=== PATIENT | female | born 1950 | race Caucasian/White ===

== ENCOUNTER 2018-07-19 08:52 | Inpatient (IN) | payer MEDICARE, BC, SELFPAY ==
[2018-07-19] VITALS (16 sets, daily range): BP systolic 132–185; BP diastolic 67–107; PULSE 69–89; RESP 14–18; TEMP 37–37.2; O2SAT 95–99; BMI 22.8; BMI 20.5; BMI 20.6
--- NOTE | 2018-07-19 09:13 | CT_ITS ---
STUDY: CT BRAIN WITHOUT CONTRAST REASON FOR EXAM: Female, 67 years old. Severe headache. RADIATION DOSAGE (If Supplied By Facility): CTDIvol = ( 44.99 ) mGy, DLP = ( 762.36 ) mGycm TECHNIQUE: Transaxial CT imaging of the brain was performed without administration of intravenous contrast material. Individualized dose optimization techniques were used for this CT. COMPARISON: No relevant priors. FINDINGS: Normal soft tissue structures. Normal calvarium. Normal size ventricles and extra-axial spaces for the patient's age. Normal white matter tracts of the cerebral hemispheres. Normal basal ganglia and thalami. Normal brainstem. Normal cerebellum. There is no intracranial hemorrhage. There are no findings of an acute ischemic infarction. Normal visualized paranasal sinuses. CT/Brain/Head without Contrast IMPRESSION: Normal unenhanced CT scan of the brain. Electronically Signed: Cornel Clemons MD at 10:10 EDT , Service support ,
--- NOTE | 2018-07-19 09:17 | ED.VIS.HA ---
History of Present Illness Chief Complaint: Headache Informant: Patient Onset: - - Onset Friday Context: Sudden Timing: Continuous Quality: Throbbing Location: Initially vertex during questioning. During examination global Current Severity: Moderate Maximum Severity: Severe Worsened by: Only prone position Relieved by: Nothing Associated Symptoms: Fever - Subjective, Nausea, Vomiting - X1 this morning, Photophobia. Negative for: Sore Throat, Sinus Pressure, Numbness, Tingling, Preceding Aura, Visual Changes, Blurred Vision, Visual Loss Injury: - - There is no history of trauma Narrative: Patient is an elderly woman with history of hypothyroidism who presents with headache that started Friday. The headache at times gets worse. She describes it as throbbing. Initially she stated the headache was bilateral vertex. During the physical portion of the H&P she reports global. She states the pain is worse when she is prone. She does not report change with being supine, sitting or bending forward. She does report pain from the base of her neck down her entire spine and feels every step. She complains of subjective fever and chills, shaking. She denies ocular, visual auditory sensory denies trouble speech or swallowing. She states she does not that she will do her eyes but her eyes are sensitive to light. She denies paresthesia, anesthesia or motor weakness. She denies problems with balance. She reports taking Tylenol this morning and 3 hours later vomited. She denies rash. Prior similar symptoms: No Recent Illness/Hospitalization: No Past Medical History - Allergies and Home Meds Allergies/Adverse Reactions: Allergies No Known Allergies Allergy (Verified 07/19/18 08:56) Primary Care Physician: Tami Soto DO [Primary Care Provider] - Prior records reviewed: Yes - History of hypothyroidism Past Medical History: - - History of hypothyroidism Surgical History: noncontributory Lives: Spouse/ Significant Other Smoking Status: Former smoker Alcohol: Rare Drugs: None Review of Systems General: Reports: Chills, Fever - Subjective, Subjective. Denies: Malaise, Sweats, Weight loss, - Eyes: Denies: Visual changes - left, Visual changes - right, Visual changes - bilaterally, Blurred vision - left, Blurred vision - right, Blurred Vision - bilaterally, Diplopia, -, - ENT: Denies: Bilateral ear pain, Rhinorrhea, Sore throat Cardiovascular: Denies: Chest pain Gastrointestinal: Reports: Nausea, Vomiting. Denies: Abdominal pain, Diarrhea Genitourinary: Denies: Dysuria, Hematuria, Frequency, -, - Skin: Denies: Rash, Abscess, Abrasions, Wounds, -, - Neurological: Reports: Headache. Denies: Weakness, Parasthesia, Numbness, -, - Hematologic: Denies: Easy bruising, Easy bleeding Allergy: Denies: Uticaria Physical Exam Vital Signs/Narrative: Vital Signs Temp Pulse Resp BP Pulse Ox 07/19/18 08:53 98.6 F 78 18 167/107 H 98 Inital Vital Signs reviewed: Yes General: Well nourished, Well developed, - - She appears ill but not toxic. Head: NC, AT. Negative for: Trauma, Tenderness, Temporary Artery Tenderness, Vesicular Rash, Sinus Tenderness Eyes: Perrl, EOMI, - - Funduscopic exam reveals normal cup-to-disc ratio. There is no papilledema. Venous pulsations noted bilaterally.. Negative for: Pale conjunctiva, Scleral icterus ENT: Moist mucous membranes, No rhinorrhea. Negative for: Nasal congestion, Sinus tenderness Neck: Supple, No Lymphadenopathy, No JVD, Nontender, No Meningismus - Negative Kernig's and Brudzinski sign. Cardiovascular: Regular rate, Regular rhythm, No murmurs, Normal S1, Normal S2 Respiratory: No distress, CTA bilaterally, Chest nontender Abdomen: Soft, Nontender, Nondistended, Normal bowel sounds Back: Nontender, Normal Inspection. Negative for: CVA tenderness, Spinal tenderness - There is no point percussion tenderness Extremities: Nontender, No edema Skin: Normal color, No rash. Negative for: Cyanosis, Jaundice Neuro: Alert, Oriented x3, Cranial nerves II-XII grossly intact, Normal Strength, Normal Sensation, Normal DTR, Normal Gait Psychological: Normal affect Diagnostic/Tx/Re-eval Impressions Brain CT 07/19/18 09:13 IMPRESSION: Normal unenhanced CT scan of the brain. Electronically Signed: Cornel Clemons MD at 10:10 EDT , Service support , 07/19/18 09:13 Brain/Head without Contrast [CT] Stat Laboratory Results 07/19/18 07/19/18 09:31 09:31 WBC 6.6 RBC 5.00 Hgb 14.4 Hct 42.8 MCV 85.6 MCH 28.8 MCHC 33.6 RDW 13.0 RDW Differential 40.4 Plt Count 195 MPV 10.2 Immature Gran % (Auto) 0.200 Neut % (Auto) 82.3 H Lymph % (Auto) 11.4 L [place] % (Auto) 5.1 Eos % (Auto) 0.5 Baso % (Auto) 0.5 Absolute Neuts (auto) 5.5 Absolute Lymphs (auto) 0.76 L Total Counted Not Reportable Sodium 140 Potassium 3.6 Chloride 108 H Carbon Dioxide 28.0 Anion Gap 4 L BUN 15 Creatinine 0.74 Estim Creat Clear Calc 59.95 Est GFR (MDRD) Af Amer 101 Est GFR (MDRD) Non-Af 84 BUN/Creatinine Ratio 20.3 H Glucose 110 H Calcium 8.2 L CTA of the head neck reveals no aneurysm. [facility] was contacted. They were informed of the results. The interventional neuroradiologist was paged and he will be made aware of her results. Will speak with patient and after speaking with interventional neuroradiologist. - Medical Decision Making With complaint of severe headache change in possession in location initially being vertex one needs to consider sphenoid sinusitis. This could represent atypical migraine. This also may represent subarachnoid hemorrhage. Because of reported subjective fever with shaking chills this may represent viral illness i.e. meningitis. To evaluate differential CT of the head was obtained, blood work, IV was established and she was medicated with Zofran and IV Toradol, 15 mg Patient was reassessed at 1045. She still does not appear well. She still complains of headache. She was informed of her blood test results and CAT scan results. She was informed there is a 15% chance of subarachnoid hemorrhage that would be missed on CAT scan. She also was told this may represent meningitis or possibly other conditions that would not reveal abnormality on CAT scan. She was given opportunity ask questions. All of her questions were asked to satisfaction. Her was present during conversation. We will proceed with lumbar puncture. Spinal fluid is clear/transparent however there is a yellow tinge, xanthochromia, which would indicate subarachnoid hemorrhage. Patient and were informed she will need further workup. They requested [facility]. Transfer line was contacted. Spoke with the intake nurse. She will contact neurosurgery. She was informed of patient's history and only medical problem is hypothyroidism. The neuro interventional radiologist Dr. ARECHIGA states that there is nothing for him to do since there is no aneurysm on the CTA of the head and neck. Dr. Tang the neuro housecalls nurse states that patient does not require transfer. She should be seen by neurology and manage her pain. Procedures Procedure(s): Patient was informed to evaluate the cause of her headache and rule out subarachnoid hemorrhage, meningitis or other cause of lumbar puncture is indicated. After explaining risk benefits, my experience, my known complications she was given opportunity ask questions. Her was as well. Their questions were answered to their satisfaction. She signed consent forms and she does have the capacity to consent for lumbar puncture. Patient was placed right decubitus position. The L3-4 interspace was cannulated first stick second pass. Fluid is clear/transparent however there is xanthochromia. Fluid was sent for appropriate analysis. Opening pressure 16.5 cm. Patient tolerated procedure well. There was no bleeding complications or any complication. Band-Aid was placed over puncture site. Patient and were informed of the discoloration of the fluid and need for further testing. Critical care time (excluding procedures): Consultation with neuro housecalls nurse and neuro interventional radiologist - 32 ED Disposition - Plan for ED Patient: Disposition: Acute Care Hospital [facility] Diagnosis: Subarachnoid hemorrhage Referrals: Tami Soto DO [Primary Care Provider] -
--- NOTE | 2018-07-19 09:21 | ED.DCSUM_ITS ---
History of Present Illness Chief Complaint: Headache Informant: Patient Onset: - - Onset Friday Context: Sudden Timing: Continuous Quality: Throbbing Location: Initially vertex during questioning. During examination global Current Severity: Moderate Maximum Severity: Severe Worsened by: Only prone position Relieved by: Nothing Associated Symptoms: Fever - Subjective, Nausea, Vomiting - X1 this morning, Photophobia. Negative for: Sore Throat, Sinus Pressure, Numbness, Tingling, Preceding Aura, Visual Changes, Blurred Vision, Visual Loss Injury: - - There is no history of trauma Narrative: Patient is an elderly woman with history of hypothyroidism who presents with headache that started Friday. The headache at times gets worse. She describes it as throbbing. Initially she stated the headache was bilateral vertex. During the physical portion of the H&P she reports global. She states the pain is worse when she is prone. She does not report change with being supine, sitting or bending forward. She does report pain from the base of her neck down her entire spine and feels every step. She complains of subjective fever and chills, shaking. She denies ocular, visual auditory sensory denies trouble s peech or swallowing. She states she does not that she will do her eyes but her eyes are sensitive to light. She denies paresthesia, anesthesia or motor weakness. She denies problems with balance. She reports taking Tylenol this morning and 3 hours later vomited. She denies rash. Prior similar symptoms: No Recent Illness/Hospitalization: No Past Medical History - Allergies and Home Meds Allergies/Adverse Reactions: Allergies No Known Allergies Allergy (Verified 07/19/18 08:56) Primary Care Physician: Tami Soto DO [Primary Care Provider] - Prior records reviewed: Yes - History of hypothyroidism Past Medical History: - - History of hypothyroidism Surgical History: noncontributory Lives: Spouse/ Significant Other Smoking Status: Former smoker Alcohol: Rare Drugs: None Review of Systems General: Reports: Chills, Fever - Subjective, Subjective. Denies: Malaise, Sweats, Weight loss, - Eyes: Denies: Visual changes - left, Visual changes - right, Visual changes - bilaterally, Blurred vision - left, Blurred vision - right, Blurred Vision - bilaterally, Diplopia, -, - ENT: Denies: Bilateral ear pain, Rhinorrhea, Sore throat Cardiovascular: Denies: Chest pain Gastrointestinal: Reports: Nausea, Vomiting. Denies: Abdominal pain, Diarrhea Genitourinary: Denies: Dysuria, Hematuria, Frequency, -, - Skin: Denies: Rash, Abscess, Abrasions, Wounds, -, - Neurological: Reports: Headache. Denies: Weakness, Parasthesia, Numbness, -, - Hematologic: Denies: Easy bruising, Easy bleeding Allergy: Denies: Uticaria Physical Exam Vital Signs/Narrative: Vital Signs Temp Pulse Resp BP Pulse Ox 07/19/18 08:53 98.6 F 78 18 167/107 H 98 Inital Vital Signs reviewed: Yes General: Well nourished, Well developed, - - She appears ill but not toxic. Head: NC, AT. Negative for: Trauma, Tenderness, Temporary Artery Tenderness, Vesicular Rash, Sinus Tenderness Eyes: Perrl, EOMI, - - Funduscopic exam reveals normal cup-to-disc ratio. There is no papilledema. Venous pulsations noted bilaterally.. Negative for: Pale conjunctiva, Scleral icterus ENT: Moist mucous membranes, No rhinorrhea. Negative for: Nasal congestion, Sinus tenderness Neck: Supple, No Lymphadenopathy, No JVD, Nontender, No Meningismus - Negative Kernig's and Brudzinski sign. Cardiovascular: Regular rate, Regular rhythm, No murmurs, Normal S1, Normal S2 Respiratory: No distress, CTA bilaterally, Chest nontender Abdomen: Soft, Nontender, Nondistended, Normal bowel sounds Back: Nontender, Normal Inspection. Negative for: CVA tenderness, Spinal tenderness - There is no point percussion tenderness Extremities: Nontender, No edema Skin: Normal color, No rash. Negative for: Cyanosis, Jaundice Neuro: Alert, Oriented x3, Cranial nerves II-XII grossly intact, Normal Strength, Normal Sensation, Normal DTR, Normal Gait Psychological: Normal affect Diagnostic/Tx/Re-eval Impressions Brain CT 07/19/18 09:13 IMPRESSION: Normal unenhanced CT scan of the brain. Electronically Signed: Cornel Clemons MD at 10:10 EDT , Service support , 07/19/18 09:13 Brain/Head without Contrast [CT] Stat Laboratory Results 07/19/18 07/19/18 09:31 09:31 WBC 6.6 RBC 5.00 Hgb 14.4 Hct 42.8 MCV 85.6 MCH 28.8 MCHC 33.6 RDW 13.0 RDW Differential 40.4 Plt Count 195 MPV 10.2 Immature Gran % (Auto) 0.200 Neut % (Auto) 82.3 H Lymph % (Auto) 11.4 L [place] % (Auto) 5.1 Eos % (Auto) 0.5 Baso % (Auto) 0.5 Absolute Neuts (auto) 5.5 Absolute Lymphs (auto) 0.76 L Total Counted Not Reportable Sodium 140 Potassium 3.6 Chloride 108 H Carbon Dioxide 28.0 Anion Gap 4 L BUN 15 Creatinine 0.74 Estim Creat Clear Calc 59.95 Est GFR (MDRD) Af Amer 101 Est GFR (MDRD) Non-Af 84 BUN/Creatinine Ratio 20.3 H Glucose 110 H Calcium 8.2 L CTA of the head neck reveals no aneurysm. [facility] was contacted. They were informed of the results. The interventional neuroradiologist was paged and he will be made aware of her results. Will speak with patient and after speaking with interventional neuroradiologist. - Medical Decision Making With complaint of severe headache change in possession in location initially being vertex one needs to consider sphenoid sinusitis. This could represent atypical migraine. This also may represent subarachnoid hemorrhage. Because of reported subjective fever with shaking chills this may represent viral illness i.e. meningitis. To evaluate differential CT of the head was obtained, blood work, IV was established and she was medicated with Zofran and IV Toradol, 15 mg Patient was reassessed at 1045. She still does not appear well. She still complains of headache. She was informed of her blood test results and CAT scan results. She was informed there is a 15% chance of subarachnoid hemorrhage that would be missed on CAT scan. She also was told this may represent meningitis or possibly other conditions that would not reveal abnormality on CAT scan. She was given opportunity ask questions. All of her questions were asked to satisfaction. Her was present during conversation. We will proceed with lumbar puncture. Spinal fluid is clear/transparent however there is a yellow tinge, xanthochromia, which would indicate subarachnoid hemorrhage. Patient and were informed she will need further workup. They requested [facility]. Transfer line was contacted. Spoke with the intake nurse. She will contact neurosurgery. She was informed of patient's history and only medical problem is hypothyroidism. The neuro interventional radiologist Dr. ARECHIGA states that there is nothing for him to do since there is no aneurysm on the CTA of the head and neck. Dr. Tang the neuro mine superintendent states that patient does not require transfer. She should be seen by neurology and manage her pain. Procedures Procedure(s): Patient was informed to evaluate the cause of her headache and rule out subarachnoid hemorrhage, meningitis or other cause of lumbar puncture is indicated. After explaining risk benefits, my experience, my known complications she was given opportunity ask questions. Her was as well. Their questions were answered to their satisfaction. She signed consent forms and she does have the capacity to consent for lumbar puncture. Patient was placed right decubitus position. The L3-4 interspace was cannulated first stick second pass. Fluid is clear/transparent however there is xanthochromia. Fluid was sent for appropriate analysis. Opening pressure 16.5 cm. Patient tolerated procedure well. There was no bleeding complications or any complication. Band-Aid was placed over puncture site. Patient and were informed of the discoloration of the fluid and need for further testing. Critical care time (excluding procedures): Consultation with neuro mine superintendent and neuro interventional radiologist - 32 ED Disposition - Plan for ED Patient: Disposition: Acute Care Hospital [facility] Diagnosis: Subarachnoid hemorrhage Referrals: Tami Soto DO [Primary Care Provider] -
[2018-07-19] MEDS: Ondansetron 4 MG/2 ML Vial IV ×2 (09:35→19:31)
[2018-07-19] MEDS: Ketorolac 15 MG/ML Vial IV (09:35)
--- NOTE | 2018-07-19 09:37 | ED.RN ---
patient does states she does not have a hx of migraines nor frequent headaches
[2018-07-19 09:43] LABS: Absolute Lymphocyte Count 0.76 X10^3/ul (0.83-4.51); Absolute Neutrophil Count 5.5 X10^3/uL (2.0-7.7); Basophil# 0.03 X10^3/uL; Basophil% 0.5 % (0-1); Eosinophil# 0.03 X10^3/uL; Eosinophils% 0.5 % (0-5); Hematocrit 42.8 % (37-47); Hemoglobin 14.4 g/dl (12.0-15.0); Lymphocyte # 0.76 X10^3/ul (4.0); Lymphocyte % 11.4 % (19-41); Mean Corp Hgb Conc 33.6 g/gl (32-36); Mean Corpuscular Hgb 28.8 pg (27.0-32.0); Mean Corpuscular Volume 85.6 fL (81-99); Mean Platelet Vol. 10.2 fl (6.2-12.0); Monocyte# 0.34 X10^3/uL; Monocyte% 5.1 % (0-10); Neutrophil # 5.47 X10^3/uL (2.7-7.7); Neutrophil % 82.3 % (47-70); Platelet Count 195 K/mm3 (150-450); RBC Distribution Width SD 40.4 fl (35.1-43.9); White Blood Count 6.6 K/mm3 (4.4-11.0)
[2018-07-19 09:47] LABS: POSITIVE COUNT NO; POSITIVE DIFFERENTIAL NO; POSITIVE MORPHOLOGY NO
[2018-07-19 09:55] LABS: Anion Gap 4 (5-15); BUN 15 mg/dL (7-18); BUN/Creat Ratio 20.3 RATIO (10-20); Calcium,Total 8.2 mg/dL (8.5-10.1); Chloride 108 mmol/L (98-107); Creatinine, Serum 0.74 mg/dL (0.55-1.02); EST Glomerular Filtration Rate 84 mL/min (>60); Est Glom Filt Rate - Afr Amer 101 mL/min (>60); Estimated Creatinine Clearance 59.95 ml/min; Glucose 110 mg/dL (74-106); Potassium 3.6 mmol/L (3.5-5.1); Sodium Level 140 mmol/L (136-145)
[2018-07-19 11:53] LABS: Body Fluid Mononuclear WBC # 0.333 10^3/uL; Body Fluid Mononuclear WBC % 99.7 %; Body Fluid Polynuclear WBC # 0.001 10^3/uL; Body Fluid Polynuclear WBC % 0.3 %; Total Cell Count CSF 0.334 10^3/uL (0.000-0.000); White Count, CSF 0.334 10^3/uL (0.000-5.000)
[2018-07-19 12:03] LABS: Appearance CSF (character) CLEAR (Clear); Auto B Fluid Analyzer BKGD Ct COUNTS W/IN LIMITS (W/IN LIMITS); CSF Color SL XANTH (Colorless); RBC Count, Spinal Fluid 2 /mm-3 (None seen); Tested Tube # 4
[2018-07-19 12:04] LABS: Body Fluid QC Type(s) BF1Q
[2018-07-19 12:12] LABS: International Normalized Ratio 1.1; Prothrombin Time (Protime)PT. 14.1 SECONDS (11.7-14.9)
[2018-07-19 12:13] LABS: Partial Thromboplast Time 32.9 Seconds (24.1-36.2)
[2018-07-19 12:20] LABS: Glucose Spinal Fluid 57 mg/dL (40-75)
--- NOTE | 2018-07-19 12:42 | CT_ITS ---
STUDY: CTA OF THE BRAIN REASON FOR EXAM: Female, 67 years old. Severe headache RADIATION DOSAGE (If Supplied By Facility): CTDIvol = ( 18.68 ) mGy, DLP = ( 643.11 ) mGycm TECHNIQUE: CT angiography was performed with a multi-detector CT scanner. Data acquisition was obtained from the skull base through the vertex following intravenous administration of 100CC IV Isovue 370. MIP images were reconstructed from the axial data set. Post-processing of the angiographic images was performed, with multiplanar reformation and 3D reconstruction. Individualized dose optimization techniques were used for this CT. COMPARISON: None. FINDINGS: Normal bilateral petrous carotid arteries. Normal right cavernous carotid artery with a normal supraclinoid bifurcation. Normal left cavernous carotid artery with a normal supraclinoid bifurcation. Normal right A1 segments of the anterior cerebral artery. Normal left A1 segments of the anterior cerebral artery. Normal intact anterior communicating artery (ACOM). Normal bilateral A2 segments of the anterior cerebral arteries. Normal right M1 and M2 segments of the middle cerebral arteries, with a normal M1 bifurcation. Normal left M1 and M2 segments of the middle cerebral arteries, with a normal M1 bifurcation. 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 Normal left posterior communicating artery (PCOM). 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 Normal basilar artery with a normal basilar bifurcation. The visualized bilateral superior cerebellar (SCA) arteries are normal. Normal bilateral P1, P2 and visualized P3 segments of the posterior cerebral arteries. There is no demonstrated aneurysm of the [place]. There is no demonstrated abnormality of the visualized brain. IMPRESSION: 1. Normal [place] without a demonstrated aneurysm or hemodynamically significant stenosis. Electronically Signed: Luis Foster MD at 14:28 EDT , Service support , STUDY: CTA NECK WITH CONTRAST REASON FOR EXAM: Female, 67 years old. Severe headache RADIATION DOSAGE (If Supplied By Facility): CTDIvol = ( 18.68 ) mGy, DLP = ( 643.11 ) mGycm TECHNIQUE: CT angiography with multi-detector data acquisition was performed from the aortic arch to the skull base following intravenous administration of 100CC IV Isovue 370. MIP images were reconstructed from the axial data set. Post-processing of the angiographic images was performed, with multiplanar reformation and 3D reconstruction. Individualized dose optimization techniques were used for this CT. COMPARISON: None. FINDINGS: AORTIC ARCH: Normal visualized aortic arch. Normal origins of the brachiocephalic, left common carotid, and left subclavian arteries. RIGHT CAROTID ARTERIES: Normal right common carotid artery (CCA). Normal right common carotid bulb. Normal origin of the right internal carotid (ICA) artery without a hemodynamically significant stenosis. Normal visualized cervical portion of the right internal carotid artery. Normal origin of the right external carotid artery (ECA). LEFT CAROTID ARTERIES: Normal left common carotid artery (CCA). Normal left common carotid bulb. Normal origin of the left internal carotid (ICA) artery without a hemodynamically significant stenosis. Normal visualized cervical portion of the left internal carotid artery. Normal origin of the left external carotid artery (ECA). VERTEBRAL ARTERIES: Normal bilateral vertebral arteries. CT/CTA Neck W/WO Contrast IMPRESSION: Normal bilateral cervical carotid and vertebral arteries. Electronically Signed: Luis Foster MD at 14:29 EDT , Service support ,
--- NOTE | 2018-07-19 12:42 | CT_ITS ---
STUDY: CTA OF THE BRAIN REASON FOR EXAM: Female, 67 years old. Severe headache RADIATION DOSAGE (If Supplied By Facility): CTDIvol = ( 18.68 ) mGy, DLP = ( 643.11 ) mGycm TECHNIQUE: CT angiography was performed with a multi-detector CT scanner. Data acquisition was obtained from the skull base through the vertex following intravenous administration of 100CC IV Isovue 370. MIP images were reconstructed from the axial data set. Post-processing of the angiographic images was performed, with multiplanar reformation and 3D reconstruction. Individualized dose optimization techniques were used for this CT. COMPARISON: None. FINDINGS: Normal bilateral petrous carotid arteries. Normal right cavernous carotid artery with a normal supraclinoid bifurcation. Normal left cavernous carotid artery with a normal supraclinoid bifurcation. Normal right A1 segments of the anterior cerebral artery. Normal left A1 segments of the anterior cerebral artery. Normal intact anterior communicating artery (ACOM). Normal bilateral A2 segments of the anterior cerebral arteries. Normal right M1 and M2 segments of the middle cerebral arteries, with a normal M1 bifurcation. Normal left M1 and M2 segments of the middle cerebral arteries, with a normal M1 bifurcation. 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 Normal left posterior communicating artery (PCOM). 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 Normal basilar artery with a normal basilar bifurcation. The visualized bilateral superior cerebellar (SCA) arteries are normal. Normal bilateral P1, P2 and visualized P3 segments of the posterior cerebral arteries. There is no demonstrated aneurysm of the tunica-biloxi of Bhak[place]. There is no demonstrated abnormality of the visualized brain. IMPRESSION: 1. Normal tunica-biloxi of [place] without a demonstrated aneurysm or hemodynamically significant stenosis. Electronically Signed: Luis Foster MD at 14:28 EDT , Service support , STUDY: CTA NECK WITH CONTRAST REASON FOR EXAM: Female, 67 years old. Severe headache RADIATION DOSAGE (If Supplied By Facility): CTDIvol = ( 18.68 ) mGy, DLP = ( 643.11 ) mGycm TECHNIQUE: CT angiography with multi-detector data acquisition was performed from the aortic arch to the skull base following intravenous administration of 100CC IV Isovue 370. MIP images were reconstructed from the axial data set. Post-processing of the angiographic images was performed, with multiplanar reformation and 3D reconstruction. Individualized dose optimization techniques were used for this CT. COMPARISON: None. FINDINGS: AORTIC ARCH: Normal visualized aortic arch. Normal origins of the brachiocephalic, left common carotid, and left subclavian arteries. RIGHT CAROTID ARTERIES: Normal right common carotid artery (CCA). Normal right common carotid bulb. Normal origin of the right internal carotid (ICA) artery without a hemodynamically significant stenosis. Normal visualized cervical portion of the right internal carotid artery. Normal origin of the right external carotid artery (ECA). LEFT CAROTID ARTERIES: Normal left common carotid artery (CCA). Normal left common carotid bulb. Normal origin of the left internal carotid (ICA) artery without a hemodynamically significant stenosis. Normal visualized cervical portion of the left internal carotid artery. Normal origin of the left external carotid artery (ECA). VERTEBRAL ARTERIES: Normal bilateral vertebral arteries. CT/CTA Head W/WO Contrast IMPRESSION: Normal bilateral cervical carotid and vertebral arteries. Electronically Signed: Luis Foster MD at 14:29 EDT , Service support ,
--- NOTE | 2018-07-19 12:58 | NURSING ---
FAXED FACESHEET TO [facility]
--- NOTE | 2018-07-19 14:57 | NURSING ---
HOSPITALIST PAGED DR MAYES FOR DR MEIER
[2018-07-19] MEDS: HYDROmorphone 0.5 MG/0.5 ML SYRINGE IV (15:19)
--- NOTE | 2018-07-19 15:35 | NURSING ---
PCU HEADACHE WITH XANTHOCHROMIA KOTSOINIS
--- NOTE | 2018-07-19 16:01 | HP.PCM_ITS ---
Problem List (1) Hypothyroidism Status: Acute (2) Arthritis Status: Chronic (3) Subarachnoid hemorrhage Status: Chronic History of Present Illness Date of Admission: 07/19/18 Chief Complaint: Headache The patient is a 67 year old F with PMH of hypothyroidism presenting with acute onset headache. She states that initially she had a headache on Friday and has steadily worsened over the last 2 days, and this morning it was the worst it had been. She stated that the pain also went down to the base of her neck and down her spine. She denies any visual disturbance, or extremity weakness or change in sensation. In the ER because of the concern for hemorrhage, CT brain was obtained which was negative and a lumbar puncture was performed that showed xanthochromia. There was no evidence of significant bleeding on the lumbar puncture, though she did have 2 red blood cells in the last to be drawn. Therefore a CTA of the head and neck were obtained to evaluate for any aneurysms, which were negative. This was conveyed by the ER physician to to external neuro specialist who felt that she would be stable to stay here at this institution. Past Medical History Past Medical History (Chronic Problems): Chronic Problems Subarachnoid hemorrhage (Chronic) Arthritis (Chronic) Allergies No Known Allergies Allergy (Verified 07/19/18 08:56) Home Medications: Ambulatory Orders Medication Instructions Recorded Levothyroxine Sodium [Synthroid] 137 mcg PO DAILY 07/19/18 Meloxicam [Mobic] 7.5 mg PO PRN PRN 07/19/18 Surgical History: noncontributory Lives: Spouse/ Significant Other Smoking Status: Former smoker Tobacco Use: Cigarettes Alcohol: Rare Drugs: None - *Family History Maternal History Items: Heart Disease Paternal History Items: No pertinent history Review of Systems Constitutional: Denies: Chills, Fever, Weight Change Eyes: Denies: Blurred vision, Double vision, Vision Change HEENT: Reports: Head Aches. Denies: Sinus Congestion, Sinus Drainage Cardiovascular: Denies: Chest Pain, Palpitations Respiratory: Denies: Cough, Shortness of breath at rest, Sputum production Gastrointestinal: Denies: Abdominal Pain, Nausea, Vomiting Genitourinary: Denies: Dysuria Musculoskeletal: Denies: Joint Pain, Joint Tenderness Skin: Denies: Rash, Wounds Neurological: Denies: Numbness, Tingling, Focal weakness Psychiatric: Denies: Anxiety, Depression Hematologic/ Lymphatic: Denies: Easy Bruising, Easy Bleeding VTE Information - Inpt Only VTE Present on Admission: No Patient Problems: Active and Suspected Problems Hypothyroidism (Acute) - Physical Exam General: Alert, Oriented x3, Cooperative, No apparent distress HEENT: Atraumatic, PERRLA, EOMI, Normocephalic Oral: Moist Mucosa Neck: Supple, No JVD, Trachea Midline Lungs: Clear to auscultation, Normal air movement, No rhonchi, No wheeze, No rales Cardiovascular: Regular rate, Regular Rhythm, Normal S1, Normal S2, No murmurs Abdomen: Soft, Non Tender, Non-Distended, No Hepato-splenomegaly Extremities: No edema, Capillary Refill Less than 3 Seconds Skin: No rashes, No breakdown Musculoskeletal: No Tenderness to Palpation of Joints or Extremities Neurological: Cranial nerves II-XII grossly intact, Neuro grossly intact, Motor Exam 5/5 strength throughout, Sensory exam intact to light touch and pain Psych/Mental Status: Normal Affect, Appropriate Vital Signs Temp Pulse Resp BP Pulse Ox 98.6 F 78 16 177/89 H 98 07/19/18 08:53 07/19/18 15:00 07/19/18 15:00 07/19/18 15:00 07/19/18 15:00 Oxygen Delivery Method Room Air Weight: 125 lb Body Mass Index (BMI) 22.8 Microbiology Past 72 Hours 07/19/18 11:30 Gram Stain - Final Csf, Spinal Fluid Laboratory Tests Past 24 Hrs 07/19/18 07/19/18 07/19/18 09:31 09:31 09:31 WBC 6.6 RBC 5.00 Hgb 14.4 Hct 42.8 MCV 85.6 MCH 28.8 MCHC 33.6 RDW 13.0 RDW Differential 40.4 Plt Count 195 MPV 10.2 Immature Gran % (Auto) 0.200 Neut % (Auto) 82.3 H Lymph % (Auto) 11.4 L [place] % (Auto) 5.1 Eos % (Auto) 0.5 Baso % (Auto) 0.5 Absolute Neuts (auto) 5.5 Absolute Lymphs (auto) 0.76 L Total Counted Not Reportable PT 14.1 INR 1.1 APTT 32.9 Sodium 140 Potassium 3.6 Chloride 108 H Carbon Dioxide 28.0 Anion Gap 4 L BUN 15 Creatinine 0.74 Estim Creat Clear Calc 59.95 Est GFR (MDRD) Af Amer 101 Est GFR (MDRD) Non-Af 84 BUN/Creatinine Ratio 20.3 H Glucose 110 H Calcium 8.2 L Fld Polynuclear WBCs # Fld Polynuclear WBCs % Fluid Mononuclear WBCs Fld Mononuclear WBCs % CSF Appearance CSF Color CSF WBC CSF RBC CSF Cell Count Tube # CSF Total Cell Counted CSF Comment CSF Glucose CSF Total Protein 07/19/18 07/19/18 07/19/18 11:30 11:30 11:30 WBC RBC Hgb Hct MCV MCH MCHC RDW RDW Differential Plt Count MPV Immature Gran % (Auto) Neut % (Auto) Lymph % (Auto) [place] % (Auto) Eos % (Auto) Baso % (Auto) Absolute Neuts (auto) Absolute Lymphs (auto) Total Counted PT INR APTT Sodium Potassium Chloride Carbon Dioxide Anion Gap BUN Creatinine Estim Creat Clear Calc Est GFR (MDRD) Af Amer Est GFR (MDRD) Non-Af BUN/Creatinine Ratio Glucose Calcium Fld Polynuclear WBCs # 0.001 Fld Polynuclear WBCs % 0.3 Fluid Mononuclear WBCs 0.333 Fld Mononuclear WBCs % 99.7 CSF Appearance CLEAR CSF Color SL XANTH H CSF WBC 0.334 CSF RBC 2 H CSF Cell Count Tube # 4 CSF Total Cell Counted 0.334 H CSF Comment May follow CSF Glucose 57 CSF Total Protein 109.0 H Assessment/Plan All Active Problems Hypothyroidism (Acute) 1. Acute intracranial hemorrhage of unknown origin -This is solely based on the history of headache and xanthochromia on an LP. -She is also currently significantly hypertensive to 170, when she states that she is normally low therefore we will start her on hydralazine and labetalol as needed -We will initially try Tylenol to see if that relieves her headaches, if not can proceed with morphine -Consult to neurology for evaluation and plan of care after discharge -Hold her Mobic for her arthritis -We will provide with IV fluids to hopefully increase her CSF which may help with her headache 2. Hypothyroidism -Stable -Continue with her home Synthroid 3. Arthritis -Mostly in her left hand, and is unable to squeeze very well because of it -Takes Mobic at home which will be discontinued given the fact that it is an NSAID and she has intracranial hemorrhage DVT: SCDs Code Visit Inpatient E&M: 42090 Init Hosp L3
[2018-07-19] MEDS: hydrALAZINE 20 MG/ML Vial 10 MG IV (18:00)
[2018-07-19] MEDS: 0.9% NaCl Peripheral Flush Adult/Peds IV ×3 (18:03→21:40)
[2018-07-19] MEDS: 0.9% Normal Saline 1,000 ML 125 ML IV ×2 (18:04→19:31)
[2018-07-19] MEDS: Morphine 2 MG/ML Syringe IV ×2 (18:41→21:40)
[2018-07-20] VITALS (37 sets, daily range): BP systolic 123–174; BP diastolic 53–116; PULSE 71–95; RESP 12–20; TEMP 36.8–37.4; O2SAT 92–97
[2018-07-20] MEDS: Acetaminophen 325 MG Tablet 650 MG PO ×2 (02:44→20:22)
[2018-07-20] MEDS: 0.9% Normal Saline 1,000 ML 125 ML IV ×3 (02:45→18:36)
[2018-07-20] MEDS: Ondansetron 4 MG/2 ML Vial IV ×2 (03:39→11:39)
[2018-07-20] MEDS: Morphine 2 MG/ML Syringe IV ×2 (03:50→08:26)
[2018-07-20 05:56] LABS: Anion Gap 5 (5-15); BUN 15 mg/dL (7-18); BUN/Creat Ratio 21.9 RATIO (10-20); Calcium,Total 8.2 mg/dL (8.5-10.1); Chloride 111 mmol/L (98-107); Creatinine, Serum 0.68 mg/dL (0.55-1.02); EST Glomerular Filtration Rate 91 mL/min (>60); Est Glom Filt Rate - Afr Amer 111 mL/min (>60); Estimated Creatinine Clearance 65.23 ml/min; Glucose 119 mg/dL (74-106); Potassium 3.8 mmol/L (3.5-5.1); Sodium Level 141 mmol/L (136-145)
[2018-07-20 05:57] LABS: Absolute Lymphocyte Count 0.81 X10^3/ul (0.83-4.51); Absolute Neutrophil Count 4.5 X10^3/uL (2.0-7.7); Basophil# 0.02 X10^3/uL; Basophil% 0.3 % (0-1); Hematocrit 37.1 % (37-47); Hemoglobin 12.3 g/dl (12.0-15.0); Lymphocyte # 0.81 X10^3/ul (4.0); Lymphocyte % 13.7 % (19-41); Mean Corp Hgb Conc 33.2 g/gl (32-36); Mean Corpuscular Hgb 28.9 pg (27.0-32.0); Mean Corpuscular Volume 87.1 fL (81-99); Mean Platelet Vol. 10.5 fl (6.2-12.0); Monocyte# 0.64 X10^3/uL; Monocyte% 10.8 % (0-10); Neutrophil # 4.45 X10^3/uL (2.7-7.7); Platelet Count 195 K/mm3 (150-450); RBC Distribution Width CV 13.4 % (11.6-14.6); Red Blood Count 4.26 M/mm3 (4.2-5.4); White Blood Count 5.9 K/mm3 (4.4-11.0)
[2018-07-20 06:14] LABS: POSITIVE COUNT NO; POSITIVE DIFFERENTIAL NO; POSITIVE MORPHOLOGY NO
[2018-07-20] MEDS: hydrALAZINE 20 MG/ML Vial 10 MG IV ×2 (08:26→12:35)
[2018-07-20] MEDS: 0.9% NaCl Peripheral Flush Adult/Peds IV ×4 (08:26→12:36)
[2018-07-20] MEDS: proCHLORPERazine 10 MG/2 ML Vial IV (09:27)
--- NOTE | 2018-07-20 10:03 | PCM.PN.HOSP ---
Patient Problems: Active and Suspected Problems Hypothyroidism (Acute) Subjective: Feels better than when she came in though she does still have a headache. Vitals/I&O's: Vital Signs Temp Pulse Resp BP Pulse Ox 98.3 F 73 16 159/80 H 96 07/20/18 08:13 07/20/18 08:26 07/20/18 08:13 07/20/18 09:25 07/20/18 08:13 Oxygen Delivery Method Room Air Weight: 112 lb 6.972 oz Body Mass Index (BMI) 20.5 Intake and Output for Last 24 Hours 07/18/18 07/19/18 07/20/18 23:59 23:59 23:59 Intake Total 120 / 120 1414 / 1414 Output Total 175 / 175 Balance -55 / -55 1414 / 1414 General: Alert, Oriented x3, Cooperative, No apparent distress HEENT: Atraumatic, PERRLA, EOMI, Normocephalic Oral: Moist Mucosa Neck: Supple, No JVD, Trachea Midline Lungs: Clear to auscultation, Normal air movement, No rhonchi, No wheeze, No rales Cardiovascular: Regular rate, Regular Rhythm, Normal S1, Normal S2, No murmurs Abdomen: Soft, Non Tender, Non-Distended, No Hepato-splenomegaly Extremities: No edema, Capillary Refill Less than 3 Seconds Skin: No rashes, No breakdown Musculoskeletal: No Tenderness to Palpation of Joints or Extremities Neurological: Cranial nerves II-XII grossly intact, Neuro grossly intact, Motor Exam 5/5 strength throughout, Sensory exam intact to light touch and pain Psych/Mental Status: Normal Affect, Appropriate Microbiology Past 72 Hours 07/19/18 11:30 Csf, Spinal Fluid Gram Stain - Final Laboratory Results 07/19/18 09:31: PT 14.1, INR 1.1, APTT 32.9 07/19/18 11:30: CSF Glucose 57 07/19/18 11:30: CSF Total Protein 109.0 H 07/19/18 11:30: Fld Polynuclear WBCs # 0.001, Fld Polynuclear WBCs % 0.3, Fluid Mononuclear WBCs 0.333, Fld Mononuclear WBCs % 99.7, CSF Appearance CLEAR, CSF Color SL XANTH H, CSF WBC 0.334, CSF RBC 2 H, CSF Cell Count Tube # 4, CSF Total Cell Counted 0.334 H, CSF Comment May follow 07/20/18 04:55: WBC 5.9, RBC 4.26, Hgb 12.3, Hct 37.1, MCV 87.1, MCH 28.9, MCHC 33.2, RDW 13.4, RDW Differential 43.0, Plt Count 195, MPV 10.5, Immature Gran % (Auto) 0.200, Neut % (Auto) 75.0 H, Lymph % (Auto) 13.7 L, [place] % (Auto) 10.8 H, Eos % (Auto) 0.0, Baso % (Auto) 0.3, Absolute Neuts (auto) 4.5, Absolute Lymphs (auto) 0.81 L, Total Counted Not Reportable 07/20/18 04:55: Sodium 141, Potassium 3.8, Chloride 111 H, Carbon Dioxide 25.0, Anion Gap 5, BUN 15, Creatinine 0.68, Estim Creat Clear Calc 65.23, Est GFR (MDRD) Af Amer 111, Est GFR (MDRD) Non-Af 91, BUN/Creatinine Ratio 21.9 H, Glucose 119 H, Calcium 8.2 L Current Medications Acetaminophen (Tylenol) 650 mg PO Q4H PRN PRN PRN Reason: MILD-MOD PAIN (1-5) Last Admin: 07/20/18 02:44 Dose: 650 mg Hydralazine HCl (Apresoline Iv) 10 mg IV Q4H PRN PRN PRN Reason: SBP GREATER THAN 150 Last Admin: 07/20/18 08:26 Dose: 10 mg Sodium Chloride () 1,000 mls @ 125 mls/hr IV .Q8H [facility] Last Admin: 07/20/18 02:45 Dose: 125 mls/hr Labetalol HCl (Trandate) 20 mg IV Q4H PRN PRN PRN Reason: SBP GREATER THAN 150 Last Admin: 07/20/18 03:06 Dose: 20 mg Levothyroxine Sodium (Synthroid) 137 mcg PO DAILY@0600 [facility] Last Admin: 07/20/18 06:11 Dose: Not Given Magnesium Hydroxide (Milk Of Magnesia) 30 ml PO DAILY PRN PRN Reason: Constipation Morphine Sulfate () 2 mg IV Q3H PRN PRN PRN Reason: SEVERE PAIN (6-1010) Last Admin: 07/20/18 08:26 Dose: 2 mg Ondansetron HCl (Zofran) 4 mg IV Q8H PRN PRN PRN Reason: NAUSEA Last Admin: 07/20/18 03:39 Dose: 4 mg Prochlorperazine Edisylate (Compazine Iv) 10 mg IV Q6H PRN PRN PRN Reason: NAUSEA Last Admin: 07/20/18 09:27 Dose: 10 mg Sodium Chloride () 5 - 15 ml IV UD PRN PRN Reason: SALINE FLUSH Last Admin: 07/20/18 09:27 Dose: 10 ml Medical Necessity - Tobacco Use Smoking Status: Former smoker Tobacco Use: Cigarettes Assessment/Plan All Active Problems Hypothyroidism (Acute) 1. Acute intracranial hemorrhage of unknown origin -This is solely based on the history of headache and xanthochromia on an LP, which was very slight 10 and she did have RBCs in the last 2 therefore could also be secondary to a traumatic tap -She is also currently significantly hypertensive to 170, when she states that she is normally low therefore we will start her on hydralazine and labetalol as needed -Just feel better when her blood pressure is more controlled so will provide these medications for SBP is greater than 150 -Eating some improvement with morphine -Consult to neurology for evaluation and plan of care after discharge -Hold her Mobic for her arthritis -We will provide with IV fluids to hopefully increase her CSF which may help with her headache 2. Hypothyroidism -Stable -Continue with her home Synthroid 3. Arthritis -Mostly in her left hand, and is unable to squeeze very well because of it -Takes Mobic at home which will be discontinued given the fact that it is an NSAID and she has intracranial hemorrhage DVT: SCDs Code Visit Inpatient E&M: 25896 Subs Hosp L2
--- NOTE | 2018-07-20 11:26 | PCM.CONS.GEN ---
Reason for Consult Date of Consultation: 07/20/18 Reason for Consultation: Headache History of Present Illness: The patient is a 67 year old F with history as below. Reports acute onset of headache associate with pain involving head and spine with onset on friday after a workout and after couging. usually no headaches. initially in ed had ct/cta/lp which was nonrevealing except xanthochromia on lp. results discussed neurologist and neurointerventionalist at another hospital by ED docs and felt to be appropriate to keep in romy. headache now 5/10. at worst the headache Per admit note: The patient is a 67 year old F with PMH of hypothyroidism presenting with acute onset headache. She states that initially she had a headache on Friday and has steadily worsened over the last 2 days, and this morning it was the worst it had been. She stated that the pain also went down to the base of her neck and down her spine. She denies any visual disturbance, or extremity weakness or change in sensation. In the ER because of the concern for hemorrhage, CT brain was obtained which was negative and a lumbar puncture was performed that showed xanthochromia. There was no evidence of significant bleeding on the lumbar puncture, though she did have 2 red blood cells in the last to be drawn. Therefore a CTA of the head and neck were obtained to evaluate for any aneurysms, which were negative. This was conveyed by the ER physician to to external neuro specialist who felt that she would be stable to stay here at this institution. Past Medical History Past Medical History (Chronic Problems): Chronic Problems Subarachnoid hemorrhage (Chronic) Arthritis (Chronic) Allergies No Known Allergies Allergy (Verified 07/19/18 08:56) Home Medications: Ambulatory Orders Medication Instructions Recorded Levothyroxine Sodium [Synthroid] 137 mcg PO DAILY 07/19/18 Meloxicam [Mobic] 7.5 mg PO PRN PRN 07/19/18 Surgical History: noncontributory Lives: Spouse/ Significant Other Smoking Status: Former smoker Tobacco Use: Cigarettes Alcohol: Rare Drugs: None - *Family History Maternal History Items: Heart Disease Paternal History Items: No pertinent history Review of Systems Constitutional: Denies: Chills, Fever, Weight Change HEENT: Denies: Head Aches, Sinus Congestion, Sinus Drainage Cardiovascular: Denies: Chest Pain, Palpitations Respiratory: Denies: Cough, Shortness of breath at rest, Sputum production Gastrointestinal: Denies: Abdominal Pain, Nausea, Vomiting Genitourinary: Denies: Dysuria Musculoskeletal: Denies: Joint Pain, Joint Tenderness Skin: Denies: Rash, Wounds Neurological: Denies: Numbness, Tingling, Focal weakness Psychiatric: Denies: Anxiety, Depression, Homicidal Ideations, Suicidal Ideations Hematologic/ Lymphatic: Denies: Easy Bruising, Easy Bleeding Patient Problems: Active and Suspected Problems Hypothyroidism (Acute) - Physical Exam General: Alert, Oriented x3, Cooperative HEENT: Atraumatic, PERRLA, EOMI, Normocephalic Neck: Supple, No JVD, Negative Carotid Bruits Lungs: Clear to auscultation, Normal air movement Cardiovascular: Regular rate, No murmurs Abdomen: Bowel Sounds Present, Soft, Non Tender Extremities: No edema, Capillary Refill Less than 3 Seconds Skin: No rashes, No breakdown Musculoskeletal: No Tenderness to Palpation of Joints or Extremities Neurological: Cranial nerves II-XII grossly intact, - - neck supple, negative kernigs and brudzinkis Psych/Mental Status: Normal Affect, Appropriate Vital Signs Temp Pulse Resp BP Pulse Ox 36.8 C 71 16 145/80 H 96 07/20/18 10:10 07/20/18 10:10 07/20/18 10:10 07/20/18 10:10 07/20/18 10:10 Oxygen Delivery Method Room Air Weight: 51 kg Body Mass Index (BMI) 20.5 Intake and Output for Last 24 Hours 07/18/18 07/19/18 07/20/18 23:59 23:59 23:59 Intake Total 120 / 120 1414 / 1414 Output Total 175 / 175 Balance -55 / -55 1414 / 1414 Microbiology Past 72 Hours 07/19/18 11:30 Gram Stain - Final Csf, Spinal Fluid CSF Culture - Preliminary No growth in 24 hours. Final to follow. Laboratory Tests Past 24 Hrs 07/19/18 07/19/18 07/19/18 09:31 11:30 11:30 WBC RBC Hgb Hct MCV MCH MCHC RDW RDW Differential Plt Count MPV Immature Gran % (Auto) Neut % (Auto) Lymph % (Auto) [place] % (Auto) Eos % (Auto) Baso % (Auto) Absolute Neuts (auto) Absolute Lymphs (auto) Total Counted PT 14.1 INR 1.1 APTT 32.9 Sodium Potassium Chloride Carbon Dioxide Anion Gap BUN Creatinine Estim Creat Clear Calc Est GFR (MDRD) Af Amer Est GFR (MDRD) Non-Af BUN/Creatinine Ratio Glucose Calcium Fld Polynuclear WBCs # Fld Polynuclear WBCs % Fluid Mononuclear WBCs Fld Mononuclear WBCs % CSF Appearance CSF Color CSF WBC CSF RBC CSF Cell Count Tube # CSF Total Cell Counted CSF Comment CSF Glucose 57 CSF Total Protein 109.0 H 07/19/18 07/20/18 07/20/18 11:30 04:55 04:55 WBC 5.9 RBC 4.26 Hgb 12.3 Hct 37.1 MCV 87.1 MCH 28.9 MCHC 33.2 RDW 13.4 RDW Differential 43.0 Plt Count 195 MPV 10.5 Immature Gran % (Auto) 0.200 Neut % (Auto) 75.0 H Lymph % (Auto) 13.7 L [place] % (Auto) 10.8 H Eos % (Auto) 0.0 Baso % (Auto) 0.3 Absolute Neuts (auto) 4.5 Absolute Lymphs (auto) 0.81 L Total Counted Not Reportable PT INR APTT Sodium 141 Potassium 3.8 Chloride 111 H Carbon Dioxide 25.0 Anion Gap 5 BUN 15 Creatinine 0.68 Estim Creat Clear Calc 65.23 Est GFR (MDRD) Af Amer 111 Est GFR (MDRD) Non-Af 91 BUN/Creatinine Ratio 21.9 H Glucose 119 H Calcium 8.2 L Fld Polynuclear WBCs # 0.001 Fld Polynuclear WBCs % 0.3 Fluid Mononuclear WBCs 0.333 Fld Mononuclear WBCs % 99.7 CSF Appearance CLEAR CSF Color SL XANTH H CSF WBC 0.334 CSF RBC 2 H CSF Cell Count Tube # 4 CSF Total Cell Counted 0.334 H CSF Comment May follow CSF Glucose CSF Total Protein CT of the head reviewed and CTA of the head and neck reviewed. I do not see any evidence of bleeding on the CAT scan and no vascular abnormalities on the CTA. Assessment/Plan All Active Problems Hypothyroidism (Acute) sudden severe headache, questionable xanthochromia on lp, only two red cells. neg cta and ct brain. rare migraine hx. cant r/o occult aneurysm or small bleed, unable to explain xanthochromia treat pain and nausea recommend transfer to tertiary care center 60min
--- NOTE | 2018-07-20 11:28 | CASEMGMT ---
RN CM Assessment Presentation: Acute intracranial hemorrhage of unknown origin, headache. Neuro eval: Xanthochromia. Cont treatment @ [facility] Intro role of CM and purpose of RN CM assessment to patient in room. Lights were low and pt has headache but is able to participate in assessment. . Demographics, PCP and Pharmacy verified. PCP: Dr. Soto Specialists: Dr. Baron Preferred [facility]acy: [facility]. Entered in chart Insurance: [facility] A/B Prescription Benefit: yes LNOK: Living Arrangements: states she lives independently, does Cross-fit exercise. No assistance needed. Transportation: drives DME: none HHC: none Patient DC goals: Home DC PLAN: anticipate home on discharge. If transfer to tertiary care is initiated, pt has MCR and can transfer to any MCR accepting facility ([facility], [facility], [facility], [facility], [place]) Bijal GORMANN RN ACM
[2018-07-20 13:33] LABS: Pathologist Review Reviewed
--- NOTE | 2018-07-20 14:00 | DCINST_ITS ---
- Discharge Diagnoses Current Active Problems: Current Active and Chronic Problems Subarachnoid hemorrhage (Chronic) Hypothyroidism (Acute) Arthritis (Chronic) You will use the following diet at home:: Regular Your food should be the consistency of: Regular Discharge Activity: Return to Normal Activity Call your doctor if you observe: Fever of 101 or Higher, Shortness of breath, Dizziness, Fainting spells, Chest pain, Increased palpitations (irregular heartbeat) Allergies/Adverse Reactions: Allergies No Known Allergies Allergy (Verified 07/19/18 08:56) Medications to take at Discharge Levothyroxine Sodium [Synthroid] 137 mcg PO DAILY 07/19/18 Primary Care Physician: Tami Soto DO [Primary Care Provider] - Please follow up with your Primary Care Physician in: 3-5 days Test Results: Test results from this visit will be discussed in further detail at your follow- up appointment, if applicable.
--- NOTE | 2018-07-20 14:09 | PCM.DC.SUM ---
Discharge Date and Diagnosis - Problem List Patient Problems: Active and Suspected Problems Hypothyroidism (Acute) Date of Admission: 07/19/18 Date of Discharge: 07/20/18 - Primary Discharge Diagnosis Active and Suspected Problems Hypothyroidism (Acute) - Secondary Discharge Diagnosis Chronic Problems Subarachnoid hemorrhage (Chronic) Arthritis (Chronic) Hospital Course and Treatment Imaging Results: CTA Brain: FINDINGS: Normal bilateral petrous carotid arteries. Normal right cavernous carotid artery with a normal supraclinoid bifurcation. Normal left cavernous carotid artery with a normal supraclinoid bifurcation. Normal right A1 segments of the anterior cerebral artery. Normal left A1 segments of the anterior cerebral artery. Normal intact anterior communicating artery (ACOM). Normal bilateral A2 segments of the anterior cerebral arteries. Normal right M1 and M2 segments of the middle cerebral arteries, with a normal M1 bifurcation. Normal left M1 and M2 segments of the middle cerebral arteries, with a normal M1 bifurcation. 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 Normal left posterior communicating artery (PCOM). 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 Normal basilar artery with a normal basilar bifurcation. The visualized bilateral superior cerebellar (SCA) arteries are normal. Normal bilateral P1, P2 and visualized P3 segments of the posterior cerebral arteries. There is no demonstrated aneurysm of the rampart of Bhakta. There is no demonstrated abnormality of the visualized brain. IMPRESSION: 1. Normal rampart of Bhakta without a demonstrated aneurysm or hemodynamically significant stenosis. CTA Neck:FINDINGS: AORTIC ARCH: Normal visualized aortic arch. Normal origins of the brachiocephalic, left common carotid, and left subclavian arteries. RIGHT CAROTID ARTERIES: Normal right common carotid artery (CCA). Normal right common carotid bulb. Normal origin of the right internal carotid (ICA) artery without a hemodynamically significant stenosis. Normal visualized cervical portion of the right internal carotid artery. Normal origin of the right external carotid artery (ECA). LEFT CAROTID ARTERIES: Normal left common carotid artery (CCA). Normal left common carotid bulb. Normal origin of the left internal carotid (ICA) artery without a hemodynamically significant stenosis. Normal visualized cervical portion of the left internal carotid artery. Normal origin of the left external carotid artery (ECA). VERTEBRAL ARTERIES: Normal bilateral vertebral arteries. CT/CTA Head W/WO Contrast IMPRESSION: Normal bilateral cervical carotid and vertebral arteries. Consults: Neurology Operations: None Procedures: - - Lumbar puncture Summary of Care Provided: Per HPI: The patient is a 67 year old F with PMH of hypothyroidism presenting with acute onset headache. She states that initially she had a headache on Friday and has steadily worsened over the last 2 days, and this morning it was the worst it had been. She stated that the pain also went down to the base of her neck and down her spine. She denies any visual disturbance, or extremity weakness or change in sensation. In the ER because of the concern for hemorrhage, CT brain was obtained which was negative and a lumbar puncture was performed that showed xanthochromia. There was no evidence of significant bleeding on the lumbar puncture, though she did have 2 red blood cells in the last to be drawn. Therefore a CTA of the head and neck were obtained to evaluate for any aneurysms, which were negative. This was conveyed by the ER physician to to external neuro specialist who felt that she would be stable to stay here at this institution. Hospital Course: 1. Intracranial [id number]-old female presents with headache that is started on Friday. She states that she was exercising at the time and the headache has continued to get worse over the last couple of days. She when she presented on Friday she stated that her headache was the worst she is ever had and in the ER she had a CTA of the head and neck which was negative for any aneurysm or bleed, however she had a lumbar puncture with xanthochromia and 2 RBCs in the fourth tube, as well as a normal glucose and normal white blood cell count but elevated protein. She does not have any fevers or chills though she stated that her headache was also going down her spine, though she does not have any nuchal rigidity. Initially the ER physician had called 2 separate neurosurgical services, I believe in [place] and they stated that she could be managed here, however she is continued to have significant blood pressure elevations with SBP is in the 170s-180s despite multiple treatments with labetalol and hydralazine. She is also continue to have emesis though she has not eaten anything. I discussed the case with [facility] neurology and they accepted her for transfer to their neuro ICU. They recommended starting a nicardipine drip and nimodipine, she will be transferred to the ICU pending transfer to [facility] on a nicardipine drip however our hospital does not carry nimodipine and therefore will continue the labetalol and hydralazine until she is transferred and her blood pressure is under 140 systolic. 2. Hypothyroidism-stable no change to her home meds, will continue with her Synthroid at her current dose Patient Problems: Active and Suspected Problems Hypothyroidism (Acute) Objective: General: Alert, Oriented x3, Cooperative, No apparent distress HEENT: Atraumatic, PERRLA, EOMI, Normocephalic Oral: Moist Mucosa Neck: Supple, No JVD, Trachea Midline, no nuchal rigidity Lungs: Clear to auscultation, Normal air movement, No rhonchi, No wheeze, No rales Cardiovascular: Regular rate, Regular Rhythm, Normal S1, Normal S2, No murmurs Abdomen: Soft, Non Tender, Non-Distended, No Hepato-splenomegaly Extremities: No edema, Capillary Refill Less than 3 Seconds Skin: No rashes, No breakdown Musculoskeletal: No Tenderness to Palpation of Joints or Extremities Neurological: Cranial nerves II-XII grossly intact, Neuro grossly intact, Motor Exam 5/5 strength throughout, Sensory exam intact to light touch and pain Psych/Mental Status: Normal Affect, Appropriate - Physical Exam Vital Signs Temp Pulse Resp BP Pulse Ox 98.2 F 81 16 168/90 H 95 07/20/18 13:01 07/20/18 13:01 07/20/18 13:01 07/20/18 13:07/20/18 13:01 Oxygen Delivery Method Room Air Weight: 112 lb 6.972 oz Body Mass Index (BMI) 20.5 Intake and Output for Last 24 Hours 07/18/18 07/19/18 07/20/18 23:59 23:59 23:59 Intake Total 120 / 120 2190 Output Total 175 / 175 Balance -55 / -55 2190 Microbiology Past 72 Hours 07/19/18 11:30 Gram Stain - Final Csf, Spinal Fluid CSF Culture - Preliminary No growth in 24 hours. Final to follow. Laboratory Tests Past 24 Hrs 07/19/18 07/20/18 07/20/18 11:30 04:55 04:55 WBC 5.9 RBC 4.26 Hgb 12.3 Hct 37.1 MCV 87.1 MCH 28.9 MCHC 33.2 RDW 13.4 RDW Differential 43.0 Plt Count 195 MPV 10.5 Immature Gran % (Auto) 0.200 Neut % (Auto) 75.0 H Lymph % (Auto) 13.7 L [place] % (Auto) 10.8 H Eos % (Auto) 0.0 Baso % (Auto) 0.3 Absolute Neuts (auto) 4.5 Absolute Lymphs (auto) 0.81 L Total Counted Not Reportable Sodium 141 Potassium 3.8 Chloride 111 H Carbon Dioxide 25.0 Anion Gap 5 BUN 15 Creatinine 0.68 Estim Creat Clear Calc 65.23 Est GFR (MDRD) Af Amer 111 Est GFR (MDRD) Non-Af 91 BUN/Creatinine Ratio 21.9 H Glucose 119 H Calcium 8.2 L CSF Comment Reviewed Discharge Activity: Return to Normal Activity Call your doctor if you observe: Fever of 101 or Higher, Shortness of breath, Dizziness, Fainting spells, Chest pain, Increased palpitations (irregular heartbeat) Home Medications: Medications to take at Discharge Levothyroxine Sodium [Synthroid] 137 mcg PO DAILY 07/19/18 Primary Care Physician: Tami Soto DO [Primary Care Provider] - Please follow up with your Primary Care Physician in: 3-5 days Disposition: Acute care Hospital Minutes spent on discharge:: 35 Patient Condition:: Stable Medical Necessity - Tobacco Use Smoking Status: Former smoker Tobacco Use: Cigarettes Meaningful Use Info Meaningful Use Diagnoses (Choose all that apply): None applicable Code Visit Inpatient E&M: 39710 Disch Hosp
--- NOTE | 2018-07-20 14:14 | DS.PCM_ITS ---
Discharge Date and Diagnosis - Problem List Patient Problems: Active and Suspected Problems Hypothyroidism (Acute) Date of Admission: 07/19/18 Date of Discharge: 07/20/18 - Primary Discharge Diagnosis Active and Suspected Problems Hypothyroidism (Acute) - Secondary Discharge Diagnosis Chronic Problems Subarachnoid hemorrhage (Chronic) Arthritis (Chronic) Hospital Course and Treatment Imaging Results: CTA Brain: FINDINGS: Normal bilateral petrous carotid arteries. Normal right cavernous carotid artery with a normal supraclinoid bifurcation. Normal left cavernous carotid artery with a normal supraclinoid bifurcation. Normal right A1 segments of the anterior cerebral artery. Normal left A1 segments of the anterior cerebral artery. Normal intact anterior communicating artery (ACOM). Normal bilateral A2 segments of the anterior cerebral arteries. Normal right M1 and M2 segments of the middle cerebral arteries, with a normal M1 bifurcation. Normal left M1 and M2 segments of the middle cerebral arteries, with a normal M1 bifurcation. 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 Normal left posterior communicating artery (PCOM). 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 Normal basilar artery with a normal basilar bifurcation. The visualized bilateral superior cerebellar (SCA) arteries are normal. Normal bilateral P1, P2 and visualized P3 segments of the posterior cerebral arteries. There is no demonstrated aneurysm of the pilot station of [place]ak[place]. There is no demonstrated abnormality of the visualized brain. IMPRESSION: 1. Normal pilot station of [place] without a demonstrated aneurysm or hemodynamically significant stenosis. CTA Neck:FINDINGS: AORTIC ARCH: Normal visualized aortic arch. Normal origins of the brachiocephalic, left common carotid, and left subclavian arteries. RIGHT CAROTID ARTERIES: Normal right common carotid artery (CCA). Normal right common carotid bulb. Normal origin of the right internal carotid (ICA) artery without a hemodynamically significant stenosis. Normal visualized cervical portion of the right internal carotid artery. Normal origin of the right external carotid artery (ECA). LEFT CAROTID ARTERIES: Normal left common carotid artery (CCA). Normal left common carotid bulb. Normal origin of the left internal carotid (ICA) artery without a hemodynamically significant stenosis. Normal visualized cervical portion of the left internal carotid artery. Normal origin of the left external carotid artery (ECA). VERTEBRAL ARTERIES: Normal bilateral vertebral arteries. CT/CTA Head W/WO Contrast IMPRESSION: Normal bilateral cervical carotid and vertebral arteries. Consults: Neurology Operations: None Procedures: - - Lumbar puncture Summary of Care Provided: Per HPI: The patient is a 67 year old F with PMH of hypothyroidism presenting with acute onset headache. She states that initially she had a headache on Friday and has steadily worsened over the last 2 days, and this morning it was the worst it had been. She stated that the pain also went down to the base of her neck and down her spine. She denies any visual disturbance, or extremity weakness or change in sensation. In the ER because of the concern for hemorrhage, CT brain was obtained which was negative and a lumbar puncture was performed that showed xanthochromia. There was no evidence of significant bleeding on the lumbar puncture, though she did have 2 red blood cells in the last to be drawn. Therefore a CTA of the head and neck were obtained to evaluate for any aneurysms, which were negative. This was conveyed by the ER physician to to external neuro specialist who felt that she would be stable to stay here at this institution. Hospital Course: 1. Intracranial [id number]-[id number]-old female presents with headache that is started on Friday. She states that she was exercising at the time and the headache has continued to get worse over the last couple of days. She when she presented on Friday she stated that her headache was the worst she is ever had and in the ER she had a CTA of the head and neck which was negative for any aneurysm or bleed, however she had a lumbar puncture with xanthochromia and 2 RBCs in the fourth tube, as well as a normal glucose and normal white blood cell count but elevated protein. She does not have any fevers or chills though she stated that her headache was also going down her spine, though she does not have any nuchal rigidity. Initially the ER physician had called 2 separate neurosurgical services, I believe in [place] and they stated that she could be managed here, however she is continued to have significant blood pressure elevations with SBP is in the 170s-180s despite multiple treatments with labetalol and hydralazine. She is also continue to have emesis though she has not eaten anything. I discussed the case with [facility] neurology and they accepted her for transfer to their neuro ICU. They recommended starting a nicardipine drip and nimodipine, she will be transferred to the ICU pending transfer to [facility] on a nicardipine drip however our hospital does not carry nimodipine and therefore will continue the labetalol and hydralazine until she is transferred and her blood pressure is under 140 systolic. 2. Hypothyroidism-stable no change to her home meds, will continue with her Synthroid at her current dose Patient Problems: Active and Suspected Problems Hypothyroidism (Acute) Objective: General: Alert, Oriented x3, Cooperative, No apparent distress HEENT: Atraumatic, PERRLA, EOMI, Normocephalic Oral: Moist Mucosa Neck: Supple, No JVD, Trachea Midline, no nuchal rigidity Lungs: Clear to auscultation, Normal air movement, No rhonchi, No wheeze, No rales Cardiovascular: Regular rate, Regular Rhythm, Normal S1, Normal S2, No murmurs Abdomen: Soft, Non Tender, Non-Distended, No Hepato-splenomegaly Extremities: No edema, Capillary Refill Less than 3 Seconds Skin: No rashes, No breakdown Musculoskeletal: No Tenderness to Palpation of Joints or Extremities Neurological: Cranial nerves II-XII grossly intact, Neuro grossly intact, Motor Exam 5/5 strength throughout, Sensory exam intact to light touch and pain Psych/Mental Status: Normal Affect, Appropriate - Physical Exam Vital Signs Temp Pulse Resp BP Pulse Ox 98.2 F 81 16 168/90 H 95 07/20/18 13:01 07/20/18 13:01 07/20/18 13:01 07/20/18 13:07/20/18 13:01 Oxygen Delivery Method Room Air Weight: 112 lb 6.972 oz Body Mass Index (BMI) 20.5 Intake and Output for Last 24 Hours 07/18/18 07/19/18 07/20/18 23:59 23:59 23:59 Intake Total 120 / 120 2190 Output Total 175 / 175 Balance -55 / -55 2190 Microbiology Past 72 Hours 07/19/18 11:30 Gram Stain - Final Csf, Spinal Fluid CSF Culture - Preliminary No growth in 24 hours. Final to follow. Laboratory Tests Past 24 Hrs 07/19/18 07/20/18 07/20/18 11:30 04:55 04:55 WBC 5.9 RBC 4.26 Hgb 12.3 Hct 37.1 MCV 87.1 MCH 28.9 MCHC 33.2 RDW 13.4 RDW Differential 43.0 Plt Count 195 MPV 10.5 Immature Gran % (Auto) 0.200 Neut % (Auto) 75.0 H Lymph % (Auto) 13.7 L [place] % (Auto) 10.8 H Eos % (Auto) 0.0 Baso % (Auto) 0.3 Absolute Neuts (auto) 4.5 Absolute Lymphs (auto) 0.81 L Total Counted Not Reportable Sodium 141 Potassium 3.8 Chloride 111 H Carbon Dioxide 25.0 Anion Gap 5 BUN 15 Creatinine 0.68 Estim Creat Clear Calc 65.23 Est GFR (MDRD) Af Amer 111 Est GFR (MDRD) Non-Af 91 BUN/Creatinine Ratio 21.9 H Glucose 119 H Calcium 8.2 L CSF Comment Reviewed Discharge Activity: Return to Normal Activity Call your doctor if you observe: Fever of 101 or Higher, Shortness of breath, Dizziness, Fainting spells, Chest pain, Increased palpitations (irregular heartbeat) Home Medications: Medications to take at Discharge Levothyroxine Sodium [Synthroid] 137 mcg PO DAILY 07/19/18 Primary Care Physician: Tami Soto DO [Primary Care Provider] - Please follow up with your Primary Care Physician in: 3-5 days Disposition: Acute care Hospital Minutes spent on discharge:: 35 Patient Condition:: Stable Medical Necessity - Tobacco Use Smoking Status: Former smoker Tobacco Use: Cigarettes Meaningful Use Info Meaningful Use Diagnoses (Choose all that apply): None applicable Code Visit Inpatient E&M: 34059 Disch Hosp
--- NOTE | 2018-07-20 14:16 | NURSING ---
This RN gave report to Graciela [employer].
--- NOTE | 2018-07-20 15:47 | PCM.CON.CC ---
Problem List (1) Hypertensive emergency without congestive heart failure Status: Acute (2) Subarachnoid hemorrhage Status: Chronic (3) Hypothyroidism Status: Acute (4) Arthritis Status: Chronic Reason for Consult Date of Consultation: 07/20/18 Reason for Consultation: Hypertensive emergency History of Present Illness: The patient is a 67 year old F, with past medical history listed below, who presented to [facility] on 07/19/2018 secondary to acute onset of headache. Patient reportedly was of her usual health until 2 days prior to presentation. Patient is active in [employer] and was apparently doing goblet squats with increased weight and had awoken the following day with acute onset of shortness of breath. Patient stated that this was localized to the base of her neck and shot down her spine. Patient denied any visual disturbance, focal neurologic deficit or instability. Patient had also reported that she was at a catering event the night before there was a backup of sewage, but she is unclear if this made any effect on her current condition. In the emergency room, patient was sent to CT scan which showed no acute hemorrhage. LP did show some xanthochromia. Patient then had a CTA showing no aneurysms and ER physician discussed with a neuro specialist at an outside facility and stated that the patient could stay here. She was admitted to the floor without real change in condition. Over the course of patient's hospitalization, patient's blood pressure has remained elevated. Patient does not report a history of baseline hypertension and does follow with a PCP on a regular basis. Patient states that the headache is grossly unchanged compared to previous except for when they give me pain medicines. Patient continues to deny any focal neurologic deficits. Patient does report a brief smoking history in the past. No alcohol or drugs have been reported. Patient currently works at [employer] and denies any other exposures other than the potential sewage exposure. Patient denies any history of renal dysfunction in herself or the family. No sudden has been reported in the family. Patient does exercise regularly. Patient states that there was no real change in her workout except for an increase in weight of the goblet squat from 25-->35 pounds. Review of systems otherwise negative x10 systems. Past Medical History Past Medical History (Chronic Problems): Chronic Problems Subarachnoid hemorrhage (Chronic) Arthritis (Chronic) Allergies No Known Allergies Allergy (Verified 07/19/18 08:56) Home Medications: Ambulatory Orders Medication Instructions Recorded Levothyroxine Sodium [Synthroid] 137 mcg PO DAILY 07/19/18 Surgical History: noncontributory Lives: Spouse/ Significant Other Smoking Status: Former smoker Tobacco Use: Cigarettes Alcohol: Rare Drugs: None - *Family History Maternal History Items: Heart Disease Paternal History Items: No pertinent history Review of Systems Comment: See HPI Patient Problems: Active and Suspected Problems Hypothyroidism (Acute) Hypertensive emergency without congestive heart failure (Acute) Objective: All imaging was personally reviewed and I agree with formal interpretation. - Physical Exam General: Alert, Oriented x3, Cooperative, - - Patient appears to be somewhat distressed secondary to headache. HEENT: Atraumatic, PERRLA, EOMI, Normocephalic, - - No scleral icterus or injection noted. Oral: Moist Mucosa, No Gingival or Mucosal Lesions/ Ulcerations Neck: Supple, No JVD, No Nodes, Trachea Midline, - - No meningismus appreciated. Lungs: Clear to auscultation, Normal air movement, No rhonchi, No wheeze, No rales, - - Symmetric expansion. No dullness to percussion. Cardiovascular: Regular rate, Regular Rhythm, Normal S1, Normal S2, No murmurs, No rub noted, No Gallop Abdomen: Bowel Sounds Present, Soft, Non Tender, Non-Distended Extremities: No clubbing, No cyanosis, No edema Skin: No rashes, No breakdown Musculoskeletal: No Tenderness to Palpation of Joints or Extremities Lymphatic: No Cervical, Supraclavicular, or Inguinal Adenopathy Neurological: Cranial nerves II-XII grossly intact, Neuro grossly intact, Motor Exam 5/5 strength throughout Psych/Mental Status: Alert and oriented to time, place, person, mood and affect Vital Signs Temp Pulse Resp BP Pulse Ox 37.3 C H 92 16 154/75 H 94 07/20/18 14:45 07/20/18 15:35 07/20/18 14:45 07/20/18 15:35 07/20/18 14:45 Oxygen Delivery Method Room Air Weight: 51 kg Body Mass Index (BMI) 20.5 Intake and Output for Last 24 Hours 07/18/18 07/19/18 07/20/18 23:59 23:59 23:59 Intake Total 120 / 120 2190 Output Total 175 / 175 Balance -55 / -55 2190 Microbiology Past 72 Hours 07/19/18 11:30 Gram Stain - Final Csf, Spinal Fluid CSF Culture - Preliminary No growth in 24 hours. Final to follow. Laboratory Tests Past 24 Hrs 07/19/18 07/20/18 07/20/18 11:30 04:55 04:55 WBC 5.9 RBC 4.26 Hgb 12.3 Hct 37.1 MCV 87.1 MCH 28.9 MCHC 33.2 RDW 13.4 RDW Differential 43.0 Plt Count 195 MPV 10.5 Immature Gran % (Auto) 0.200 Neut % (Auto) 75.0 H Lymph % (Auto) 13.7 L [place] % (Auto) 10.8 H Eos % (Auto) 0.0 Baso % (Auto) 0.3 Absolute Neuts (auto) 4.5 Absolute Lymphs (auto) 0.81 L Total Counted Not Reportable Sodium 141 Potassium 3.8 Chloride 111 H Carbon Dioxide 25.0 Anion Gap 5 BUN 15 Creatinine 0.68 Estim Creat Clear Calc 65.23 Est GFR (MDRD) Af Amer 111 Est GFR (MDRD) Non-Af 91 BUN/Creatinine Ratio 21.9 H Glucose 119 H Calcium 8.2 L CSF Comment Reviewed Assessment/Plan Active and Suspected Problems Hypothyroidism (Acute) Hypertensive emergency without congestive heart failure (Acute) RECOMMENDATIONS: 1. Continue nicardipine drip to keep systolic blood pressure less than 160 2. Await transfer to tertiary center 3. Add NIH scores every 2 until transferred 4. Obtain TSH IMPRESSIONS: 1. Hypertensive emergency Patient denies any previous history of hypertension, but does have significant elevation of blood pressure at this time. Unclear if this is related to problem #2. Patient has been initiated on nicardipine drip. This will be continued to keep systolic blood pressure less than 160 pending transfer to a tertiary center. 2. Possible subarachnoid hemorrhage Patient does not appear to have any deficits at this time outside of the headache. Will add NIH score is every 2 hours until patient is transferred. Patient does not appear to have any significant meningismus at this time. Patient does not have significant fever or leukocytosis to suggest HSV encephalitis. Code Visit Inpatient E&M: 33167 Init Hosp L3
[2018-07-21] VITALS (33 sets, daily range): BP systolic 113–160; BP diastolic 50–79; PULSE 73–89; RESP 14–22; TEMP 36.7–37.7; O2SAT 91–98
[2018-07-21] MEDS: Acetaminophen 325 MG Tablet 650 MG PO ×5 (00:15→19:56)
[2018-07-21] MEDS: Ondansetron 4 MG/2 ML Vial IV ×2 (00:35→19:55)
[2018-07-21] MEDS: 0.9% Normal Saline 1,000 ML 125 ML IV (02:40)
[2018-07-21] MEDS: Levothyroxine 137 MCG Tablet PO (05:32)
[2018-07-21] MEDS: Morphine 2 MG/ML Syringe IV ×3 (05:32→21:40)
--- NOTE | 2018-07-21 07:21 | PN_ITS ---
Subjective: Patient did okay overnight. Patient does remain on nicardipine drip. Blood pressures have been well controlled. Patient continues to have a headache that never improved beyond a 3. Patient has responded to pain medication, but had an episode of nausea and vomiting overnight. Patient continues to take only clears from a dietary standpoint. NIH scores have remained 0. [facility] has been contacted and has no ETA on neurosurgery bed. General: Alert, Oriented x3, Cooperative, No apparent distress, - - Photophobia noted. HEENT: Atraumatic, PERRLA, EOMI, Normocephalic, - - No scleral icterus or injection noted. Oral: Moist Mucosa, No Gingival or Mucosal Lesions/ Ulcerations Neck: Supple, No JVD, No Nodes, Trachea Midline Lungs: Clear to auscultation, Normal air movement, No rhonchi, No wheeze, No rales Cardiovascular: Regular rate, Regular Rhythm, Normal S1, Normal S2, No murmurs, No rub noted, No Gallop Abdomen: Bowel Sounds Present, Soft, Non Tender, Non-Distended Extremities: No clubbing, No cyanosis, No edema, Capillary Refill Less than 3 Seconds Skin: No rashes, No breakdown Musculoskeletal: No Tenderness to Palpation of Joints or Extremities Lymphatic: No Cervical, Supraclavicular, or Inguinal Adenopathy Neurological: Cranial nerves II-XII grossly intact, Neuro grossly intact, Motor Exam 5/5 strength throughout Psych/Mental Status: Alert and oriented to time, place, person, mood and affect Vital Signs Temp Pulse Resp BP Pulse Ox 37.6 C H 79 17 135/65 H 92 07/21/18 04:00 07/21/18 07:00 07/21/18 07:00 07/21/18 07:00 07/21/18 07:00 Oxygen Delivery Method Room Air Weight: 51.5 kg Body Mass Index (BMI) 20.5 Intake and Output for Last 24 Hours 07/19/18 07/20/18 07/21/18 23:59 23:59 23:59 Intake Total 120 / 120 2791 / 2791 2231 / 2231 Output Total 175 / 175 200 / 200 1500 / 1500 Balance -55 / -55 2591 / 2591 731 / 731 Labs (Last 48 Hours) 03/31/19 03/31/19 03/31/19 09:31 09:31 09:31 WBC 6.6 RBC 5.00 Hgb 14.4 Hct 42.8 MCV 85.6 MCH 28.8 MCHC 33.6 RDW 13.0 RDW Differential 40.4 Plt Count 195 MPV 10.2 Immature Gran % (Auto) 0.200 Neut % (Auto) 82.3 H Lymph % (Auto) 11.4 L [place] % (Auto) 5.1 Eos % (Auto) 0.5 Baso % (Auto) 0.5 Absolute Neuts (auto) 5.5 Absolute Lymphs (auto) 0.76 L Total Counted Not Reportable PT 14.1 INR 1.1 APTT 32.9 Sodium 140 Potassium 3.6 Chloride 108 H Carbon Dioxide 28.0 Anion Gap 4 L BUN 15 Creatinine 0.74 Estim Creat Clear Calc 59.95 Est GFR (MDRD) Af Amer 101 Est GFR (MDRD) Non-Af 84 BUN/Creatinine Ratio 20.3 H Glucose 110 H Calcium 8.2 L Fld Polynuclear WBCs # Fld Polynuclear WBCs % Fluid Mononuclear WBCs Fld Mononuclear WBCs % CSF Appearance CSF Color CSF WBC CSF RBC CSF Cell Count Tube # CSF Total Cell Counted CSF Comment CSF Glucose CSF Total Protein 07/19/18 07/19/18 07/19/18 11:30 11:30 11:30 WBC RBC Hgb Hct MCV MCH MCHC RDW RDW Differential Plt Count MPV Immature Gran % (Auto) Neut % (Auto) Lymph % (Auto) [place] % (Auto) Eos % (Auto) Baso % (Auto) Absolute Neuts (auto) Absolute Lymphs (auto) Total Counted PT INR APTT Sodium Potassium Chloride Carbon Dioxide Anion Gap BUN Creatinine Estim Creat Clear Calc Est GFR (MDRD) Af Amer Est GFR (MDRD) Non-Af BUN/Creatinine Ratio Glucose Calcium Fld Polynuclear WBCs # 0.001 Fld Polynuclear WBCs % 0.3 Fluid Mononuclear WBCs 0.333 Fld Mononuclear WBCs % 99.7 CSF Appearance CLEAR CSF Color SL XANTH H CSF WBC 0.334 CSF RBC 2 H CSF Cell Count Tube # 4 CSF Total Cell Counted 0.334 H CSF Comment Reviewed CSF Glucose 57 CSF Total Protein 109.0 H 07/20/18 07/20/18 04:55 04:55 WBC 5.9 RBC 4.26 Hgb 12.3 Hct 37.1 MCV 87.1 MCH 28.9 MCHC 33.2 RDW 13.4 RDW Differential 43.0 Plt Count 195 MPV 10.5 Immature Gran % (Auto) 0.200 Neut % (Auto) 75.0 H Lymph % (Auto) 13.7 L [place] % (Auto) 10.8 H Eos % (Auto) 0.0 Baso % (Auto) 0.3 Absolute Neuts (auto) 4.5 Absolute Lymphs (auto) 0.81 L Total Counted Not Reportable PT INR APTT Sodium 141 Potassium 3.8 Chloride 111 H Carbon Dioxide 25.0 Anion Gap 5 BUN 15 Creatinine 0.68 Estim Creat Clear Calc 65.23 Est GFR (MDRD) Af Amer 111 Est GFR (MDRD) Non-Af 91 BUN/Creatinine Ratio 21.9 H Glucose 119 H Calcium 8.2 L Fld Polynuclear WBCs # Fld Polynuclear WBCs % Fluid Mononuclear WBCs Fld Mononuclear WBCs % CSF Appearance CSF Color CSF WBC CSF RBC CSF Cell Count Tube # CSF Total Cell Counted CSF Comment CSF Glucose CSF Total Protein Microbiology 07/19/18 11:30 Csf, Spinal Fluid Gram Stain - Final 07/19/18 11:30 Csf, Spinal Fluid CSF Culture - Preliminary No growth in 24 hours. Final to follow. Medical Necessity - Tobacco Use Smoking Status: Former smoker Tobacco Use: Cigarettes Assessment/Plan All Active Problems Hypothyroidism (Acute) Hypertensive emergency without congestive heart failure (Acute) RECOMMENDATIONS: 1. Continue nicardipine drip to keep systolic blood pressure less than 160 2. Await transfer to tertiary center 3. Continue NIH scores every 2 until transferred IMPRESSIONS: 1. Hypertensive emergency Patient denies any previous history of hypertension, but does have significant elevation of blood pressure at this time. Unclear if this is related to problem #2. Patient has been initiated on nicardipine drip. This will be continued to keep systolic blood pressure less than 160 pending transfer to a tertiary center. This does not appear to have alleviated patient's headache. 2. Suspected subarachnoid hemorrhage Patient does not appear to have any deficits at this time outside of the headache. Some concern given the persistence of headache. Still waiting on a bed at a tertiary center for evaluation by neurosurgery. Continue to treat pain symptomatically. NIH score is have not shown any acute bleed. Patient is willing to go to another tertiary center if bed can be available more quickly. Code Visit Inpatient E&M: 12874 Subs Hosp L3
--- NOTE | 2018-07-21 10:14 | NURSING ---
[facility] up dated on condition , no bed available at this time
[2018-07-21] MEDS: 0.9% Normal Saline 1,000 ML 75 ML IV ×2 (10:22→22:26)
--- NOTE | 2018-07-21 11:08 | PCM.PN.NEU ---
Patient Problems: Active and Suspected Problems Hypothyroidism (Acute) Hypertensive emergency without congestive heart failure (Acute) Subjective: last vomited 3am, headache now 04/30. spine pain resolved, bp improved on nicardipine. - Physical Exam General: Alert, Oriented x3 HEENT: PERRLA, EOMI Neurological: Cranial nerves II-XII grossly intact Psych/Mental Status: Normal Affect Vital Signs Temp Pulse Resp BP Pulse Ox 36.7 C 80 16 126/69 H 93 07/21/18 08:00 07/21/18 10:00 07/21/18 10:00 07/21/18 10:00 07/21/18 10:00 Oxygen Delivery Method Room Air Weight: 51.5 kg Body Mass Index (BMI) 20.5 Intake and Output for Last 24 Hours 07/19/18 07/20/18 07/21/18 23:59 23:59 23:59 Intake Total 120 / 120 2791 / 2791 2231 / 2231 Output Total 175 / 175 200 / 200 1500 / 1500 Balance -55 / -55 2591 / 2591 731 / 731 Microbiology Past 72 Hours 07/19/18 11:30 Gram Stain - Final Csf, Spinal Fluid CSF Culture - Preliminary No growth in 24 hours. Final to follow. Laboratory Tests Past 24 Hrs 07/19/18 11:30 CSF Comment Reviewed Current Medications Acetaminophen 650 mg 07/19/18 16:30 07/21/18 09:33 Tylenol PO 650 mg Q4H PRN PRN Administration MILD-MOD PAIN (1-5/10) Hydralazine HCl 10 mg 07/19/18 22:52 07/20/18 12:35 Apresoline Iv IV 10 mg Q4H PRN PRN Administration SBP GREATER THAN 150 Nicardipine HCl 25 mg/ Sodium 250 mls @ 50 mls/hr 07/20/18 17:03 07/21/18 10:20 Chloride CONT INF 50 mls/hr .Q5H LILIAN Administration 5 MG/HR Sodium Chloride 1,000 mls @ 75 mls/hr 07/21/18 09:05 07/21/18 10:22 IV 75 mls/hr .[id number] LILIAN Administration Labetalol HCl 20 mg 07/19/18 22:52 07/20/18 11:36 Trandate IV 20 mg Q4H PRN PRN Administration SBP GREATER THAN 150 Levothyroxine Sodium 137 mcg 07/20/18 06:00 07/21/18 05:32 Synthroid PO 137 mcg DAILY@0600 LILIAN Administration Magnesium Hydroxide 30 ml 07/19/18 16:30 Milk Of Magnesia PO DAILY PRN Constipation Morphine Sulfate 2 mg 07/19/18 16:30 07/21/18 05:32 IV 2 mg Q3H PRN PRN Administration SEVERE PAIN (6-10/10) Ondansetron HCl 4 mg 07/19/18 18:52 07/21/18 00:35 Zofran IV 4 mg Q8H PRN PRN Administration NAUSEA Prochlorperazine Edisylate 10 mg 07/20/18 09:10 07/20/18 09:27 Compazine Iv IV 10 mg Q6H PRN PRN Administration NAUSEA Sodium Chloride 5 - 15 ml 07/19/18 17:00 07/20/18 12:36 IV 10 ml UD PRN Administration SALINE FLUSH Medical Necessity - Tobacco Use Smoking Status: Former smoker Tobacco Use: Cigarettes Assessment/Plan All Active Problems Hypothyroidism (Acute) Hypertensive emergency without congestive heart failure (Acute) sudden severe headache, questionable xanthochromia on lp, only two red cells. neg cta and ct brain. rare migraine hx. cant r/o occult aneurysm or small bleed, unable to explain xanthochromia. csf wbc report is either .334 or .[id number] 3rd. placed a call to lab to verify number of white cells per high power field. if the wbc is ACTUALLY 334 cells per high power field, then this would be most consistent with viral meningitis, now improved. for now continue symptomatic rx, bp management. no bed availability in [place].
--- NOTE | 2018-07-21 11:14 | CT_ITS ---
STUDY: CTA OF THE BRAIN REASON FOR EXAM: Female, 67 years old. Hypertensive emergency without CHF. RADIATION DOSAGE (If Supplied By Facility): CTDIvol = ( 25.37 ) mGy, DLP = ( 1171.79 ) mGycm TECHNIQUE: CT angiography was performed with a multi-detector CT scanner. Data acquisition was obtained from the skull base through the vertex following intravenous administration of 100 IV Isovue 370. MIP images were reconstructed from the axial data set. Post-processing of the angiographic images was performed, with multiplanar reformation and 3D reconstruction. Individualized dose optimization techniques were used for this CT. COMPARISON: Comparison is made with prior examination dated July 19, 2018. FINDINGS: Normal bilateral petrous carotid arteries. Normal right cavernous carotid artery with a normal supraclinoid bifurcation. Normal left cavernous carotid artery with a normal supraclinoid bifurcation. Normal right A1 segments of the anterior cerebral artery. Normal left A1 segments of the anterior cerebral artery. Normal intact anterior communicating artery (ACOM). Normal bilateral A2 segments of the anterior cerebral arteries. Normal right M1 and M2 segments of the middle cerebral arteries, with a normal M1 bifurcation. Normal left M1 and M2 segments of the middle cerebral arteries, with a normal M1 bifurcation. 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 Normal left posterior communicating artery (PCOM). 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 Normal basilar artery with a normal basilar bifurcation. The visualized bilateral superior cerebellar (SCA) arteries are normal. Normal bilateral P1, P2 and visualized P3 segments of the posterior cerebral arteries. There is no demonstrated aneurysm of the [place]. There is no demonstrated abnormality of the visualized brain. CT/CTA Head W/WO Contrast IMPRESSION: Normal [place] without a demonstrated aneurysm or hemodynamically significant stenosis. Electronically Signed: Melchor Ramey, at 13:04 EDT , Service support ,
--- NOTE | 2018-07-21 15:51 | PCM.PN.HOSP ---
Patient Problems: Active and Suspected Problems Hypothyroidism (Acute) Hypertensive emergency without congestive heart failure (Acute) Subjective: No issues overnight, feels little bit better, and her headache is a little bit better managed and her spine pain has gone. She is able to tolerate a little bit of a diet this morning Vitals/I&O's: Vital Signs Temp Pulse Resp BP Pulse Ox 98.1 F 83 16 137/66 H 97 07/21/18 12:00 07/21/18 15:50 07/21/18 15:00 07/21/18 15:00 07/21/18 15:00 Oxygen Delivery Method Room Air Weight: 113 lb 8.609 oz Body Mass Index (BMI) 20.5 Intake and Output for Last 24 Hours 07/19/18 07/20/18 07/21/18 23:59 23:59 23:59 Intake Total 120 / 120 2791 / 2791 3811 / 3811 Output Total 175 / 175 200 / 200 2100 / 2100 Balance -55 / -55 2591 / 2591 1711 / 1711 General: Alert, Oriented x3, Cooperative, No apparent distress HEENT: Atraumatic, PERRLA, EOMI, Normocephalic Oral: Moist Mucosa Neck: Supple, No JVD, Trachea Midline Lungs: Clear to auscultation, Normal air movement, No rhonchi, No wheeze, No rales Cardiovascular: Regular rate, Regular Rhythm, Normal S1, Normal S2, No murmurs Abdomen: Soft, Non Tender, Non-Distended, No Hepato-splenomegaly Extremities: No edema, Capillary Refill Less than 3 Seconds Skin: No rashes, No breakdown Musculoskeletal: No Tenderness to Palpation of Joints or Extremities Neurological: Cranial nerves II-XII grossly intact, Neuro grossly intact, Motor Exam 5/5 strength throughout, Sensory exam intact to light touch and pain Psych/Mental Status: Normal Affect, Appropriate Microbiology Past 72 Hours 07/19/18 11:30 Csf, Spinal Fluid Gram Stain - Final 07/19/18 11:30 Csf, Spinal Fluid CSF Culture - Preliminary No growth in 24 hours. Final to follow. Current Medications Acetaminophen (Tylenol) 650 mg PO Q4H PRN PRN PRN Reason: MILD-MOD PAIN (1-5/10) Last Admin: 07/21/18 15:27 Dose: 650 mg Hydralazine HCl (Apresoline Iv) 10 mg IV Q4H PRN PRN PRN Reason: SBP GREATER THAN 150 Last Admin: 07/20/18 12:35 Dose: 10 mg Nicardipine HCl 25 mg/ Sodium (Chloride) 250 mls @ 50 mls/hr CONT INF .Q5H [facility] Last Admin: 07/21/18 15:01 Dose: 50 mls/hr Sodium Chloride () 1,000 mls @ 75 mls/hr IV .[id number] [facility] Last Admin: 07/21/18 10:22 Dose: 75 mls/hr Labetalol HCl (Trandate) 20 mg IV Q4H PRN PRN PRN Reason: SBP GREATER THAN 150 Last Admin: 07/20/18 11:36 Dose: 20 mg Levothyroxine Sodium (Synthroid) 137 mcg PO DAILY@0600 [facility] Last Admin: 07/21/18 05:32 Dose: 137 mcg Magnesium Hydroxide (Milk Of Magnesia) 30 ml PO DAILY PRN PRN Reason: Constipation Morphine Sulfate () 2 mg IV Q3H PRN PRN PRN Reason: SEVERE PAIN (6-10/10) Last Admin: 07/21/18 05:32 Dose: 2 mg Ondansetron HCl (Zofran) 4 mg IV Q8H PRN PRN PRN Reason: NAUSEA Last Admin: 07/21/18 00:35 Dose: 4 mg Prochlorperazine Edisylate (Compazine Iv) 10 mg IV Q6H PRN PRN PRN Reason: NAUSEA Last Admin: 07/20/18 09:27 Dose: 10 mg Sodium Chloride () 5 - 15 ml IV UD PRN PRN Reason: SALINE FLUSH Last Admin: 07/20/18 12:36 Dose: 10 ml Medical Necessity - Tobacco Use Smoking Status: Former smoker Tobacco Use: Cigarettes Assessment/Plan All Active Problems Hypothyroidism (Acute) Hypertensive emergency without congestive heart failure (Acute) 1. Acute intracranial hemorrhage of unknown origin/possible viral meningitis -This is solely based on the history of headache and xanthochromia on an LP, which was very slight 10 and she did have RBCs in the last 2 therefore could also be secondary to a traumatic tap -She was started on labetalol and hydralazine systolics in the 170s, however this was not controlling her blood pressure so she was transferred to the ICU on nicardipine while awaiting transfer to [facility] -Consult to neurology for evaluation and plan of care after discharge -Hold her Mobic for her arthritis -We will provide with IV fluids to hopefully increase her CSF which may help with her headache -Of note her CSF analysis also shows elevated protein as well as elevated white blood cells and given the fact that a repeat CT of the head still shows no bleed or aneurysms, this may also be a viral meningitis 2. Hypothyroidism -Stable -Continue with her home Synthroid 3. Arthritis -Mostly in her left hand, and is unable to squeeze very well because of it -Takes Mobic at home which will be discontinued given the fact that it is an NSAID and she has intracranial hemorrhage DVT: SCDs Code Visit Inpatient E&M: 55560 Subs Hosp L2
--- NOTE | 2018-07-21 15:59 | PN_ITS ---
Patient Problems: Active and Suspected Problems Hypothyroidism (Acute) Hypertensive emergency without congestive heart failure (Acute) Subjective: No issues overnight, feels little bit better, and her headache is a little bit better managed and her spine pain has gone. She is able to tolerate a little bit of a diet this morning Vitals/I&O's: Vital Signs Temp Pulse Resp BP Pulse Ox 98.1 F 83 16 137/66 H 97 07/21/18 12:00 07/21/18 15:50 07/21/18 15:00 07/21/18 15:00 07/21/18 15:00 Oxygen Delivery Method Room Air Weight: 113 lb 8.609 oz Body Mass Index (BMI) 20.5 Intake and Output for Last 24 Hours 07/19/18 07/20/18 07/21/18 23:59 23:59 23:59 Intake Total 120 / 120 2791 / 2791 3811 / 3811 Output Total 175 / 175 200 / 200 2100 / 2100 Balance -55 / -55 2591 / 2591 1711 / 1711 General: Alert, Oriented x3, Cooperative, No apparent distress HEENT: Atraumatic, PERRLA, EOMI, Normocephalic Oral: Moist Mucosa Neck: Supple, No JVD, Trachea Midline Lungs: Clear to auscultation, Normal air movement, No rhonchi, No wheeze, No rales Cardiovascular: Regular rate, Regular Rhythm, Normal S1, Normal S2, No murmurs Abdomen: Soft, Non Tender, Non-Distended, No Hepato-splenomegaly Extremities: No edema, Capillary Refill Less than 3 Seconds Skin: No rashes, No breakdown Musculoskeletal: No Tenderness to Palpation of Joints or Extremities Neurological: Cranial nerves II-XII grossly intact, Neuro grossly intact, Motor Exam 5/5 strength throughout, Sensory exam intact to light touch and pain Psych/Mental Status: Normal Affect, Appropriate Microbiology Past 72 Hours 07/19/18 11:30 Csf, Spinal Fluid Gram Stain - Final 07/19/18 11:30 Csf, Spinal Fluid CSF Culture - Preliminary No growth in 24 hours. Final to follow. Current Medications Acetaminophen (Tylenol) 650 mg PO Q4H PRN PRN PRN Reason: MILD-MOD PAIN (1-5/10) Last Admin: 07/21/18 15:27 Dose: 650 mg Hydralazine HCl (Apresoline Iv) 10 mg IV Q4H PRN PRN PRN Reason: SBP GREATER THAN 150 Last Admin: 07/20/18 12:35 Dose: 10 mg Nicardipine HCl 25 mg/ Sodium (Chloride) 250 mls @ 50 mls/hr CONT INF .Q5H [facility] Last Admin: 07/21/18 15:01 Dose: 50 mls/hr Sodium Chloride () 1,000 mls @ 75 mls/hr IV .[id number] [facility] Last Admin: 07/21/18 10:22 Dose: 75 mls/hr Labetalol HCl (Trandate) 20 mg IV Q4H PRN PRN PRN Reason: SBP GREATER THAN 150 Last Admin: 07/20/18 11:36 Dose: 20 mg Levothyroxine Sodium (Synthroid) 137 mcg PO DAILY@0600 [facility] Last Admin: 07/21/18 05:32 Dose: 137 mcg Magnesium Hydroxide (Milk Of Magnesia) 30 ml PO DAILY PRN PRN Reason: Constipation Morphine Sulfate () 2 mg IV Q3H PRN PRN PRN Reason: SEVERE PAIN (6-10/10) Last Admin: 07/21/18 05:32 Dose: 2 mg Ondansetron HCl (Zofran) 4 mg IV Q8H PRN PRN PRN Reason: NAUSEA Last Admin: 07/21/18 00:35 Dose: 4 mg Prochlorperazine Edisylate (Compazine Iv) 10 mg IV Q6H PRN PRN PRN Reason: NAUSEA Last Admin: 07/20/18 09:27 Dose: 10 mg Sodium Chloride () 5 - 15 ml IV UD PRN PRN Reason: SALINE FLUSH Last Admin: 07/20/18 12:36 Dose: 10 ml Medical Necessity - Tobacco Use Smoking Status: Former smoker Tobacco Use: Cigarettes Assessment/Plan All Active Problems Hypothyroidism (Acute) Hypertensive emergency without congestive heart failure (Acute) 1. Acute intracranial hemorrhage of unknown origin/possible viral meningitis -This is solely based on the history of headache and xanthochromia on an LP, which was very slight 10 and she did have RBCs in the last 2 therefore could also be secondary to a traumatic tap -She was started on labetalol and hydralazine systolics in the 170s, however this was not controlling her blood pressure so she was transferred to the ICU on nicardipine while awaiting transfer to [facility] -Consult to neurology for evaluation and plan of care after discharge -Hold her Mobic for her arthritis -We will provide with IV fluids to hopefully increase her CSF which may help with her headache -Of note her CSF analysis also shows elevated protein as well as elevated white blood cells and given the fact that a repeat CT of the head still shows no bleed or aneurysms, this may also be a viral meningitis 2. Hypothyroidism -Stable -Continue with her home Synthroid 3. Arthritis -Mostly in her left hand, and is unable to squeeze very well because of it -Takes Mobic at home which will be discontinued given the fact that it is an NSAID and she has intracranial hemorrhage DVT: SCDs Code Visit Inpatient E&M: 33825 Subs Hosp L2
[2018-07-21] MEDS: 0.9% NaCl Peripheral Flush Adult/Peds IV (21:40)
--- NOTE | 2018-07-21 22:00 | NURSING ---
Awoke pt. Applied 2L NC for low pulse ox of 88% while sleeping. Pulse ox increased to high 90's while on O2 and with the use of incentive spirometer. Reeducated on use of Incentive spirometer. Had pt return demo.
[2018-07-22] VITALS (32 sets, daily range): BP systolic 119–158; BP diastolic 57–83; PULSE 68–85; RESP 13–20; TEMP 36.7–37.3; O2SAT 88–100
[2018-07-22] MEDS: proCHLORPERazine 10 MG/2 ML Vial IV ×2 (00:25→22:40)
[2018-07-22] MEDS: 0.9% NaCl Peripheral Flush Adult/Peds IV ×2 (00:25→22:40)
--- NOTE | 2018-07-22 00:30 | NURSING ---
Pt had medium emesis after attempting to eat low sodium vegetable soup. Provided pt ordered compazine for nausea, with relief. Pt states her head pain is greatly improved at this time.
--- NOTE | 2018-07-22 03:20 | NURSING ---
WINNIE Yusuf from [facility] phoned for update on bed situation. No beds available at this time, but may have beds later this day.
[2018-07-22] MEDS: Acetaminophen 325 MG Tablet 650 MG PO ×3 (05:31→17:49)
[2018-07-22] MEDS: Levothyroxine 137 MCG Tablet PO (05:32)
--- NOTE | 2018-07-22 07:14 | PCM.PN.INT ---
Subjective: Patient continues to wait on a bed from [facility]. Patient's headache is slightly improved and she has not required as much pain medication. Patient does have issues with nausea and vomiting, but responded well to Compazine overnight. No focal neurologic deficits have been reported by the patient and NIH scores have been discontinued. Objective: Imaging was personally reviewed. Agree with formal interpretation. General: Alert, Oriented x3, Cooperative, No apparent distress, Well developed, Well nourished, - - No conversational dyspnea. Less photophobia noted. HEENT: Atraumatic, PERRLA, EOMI, Normocephalic, - - No scleral icterus or injection noted. Oral: Moist Mucosa, No Gingival or Mucosal Lesions/ Ulcerations Neck: Supple, No JVD, No Nodes, Trachea Midline Lungs: Clear to auscultation, Normal air movement, No rhonchi, No wheeze, No rales Cardiovascular: Regular rate, Regular Rhythm, Normal S1, Normal S2, No murmurs Abdomen: Bowel Sounds Present, Soft, Non Tender, Non-Distended Extremities: No clubbing, No cyanosis, No edema Skin: No rashes, No breakdown Musculoskeletal: No Tenderness to Palpation of Joints or Extremities Lymphatic: No Cervical, Supraclavicular, or Inguinal Adenopathy Neurological: Cranial nerves II-XII grossly intact, Neuro grossly intact, Motor Exam 5/5 strength throughout Psych/Mental Status: Alert and oriented to time, place, person, mood and affect Vital Signs Temp Pulse Resp BP Pulse Ox 37.2 C 82 16 134/60 H 94 07/22/18 04:00 07/22/18 07:00 07/22/18 07:00 07/22/18 07:00 07/22/18 07:00 Oxygen Flow Rate (L/min) 2 Oxygen Delivery Method Room Air Weight: 58.3 kg Body Mass Index (BMI) 20.5 Intake and Output for Last 24 Hours 07/20/18 07/21/18 07/22/18 23:59 23:59 23:59 Intake Total 2791 / 2791 5522 / 5522 988 / 988 Output Total 200 / 200 3200 / 3200 250 / 250 Balance 2591 / 2591 2322 / 2322 738 / 738 Labs (Last 48 Hours) 07/19/18 11:30 CSF Comment Reviewed Microbiology 07/19/18 11:30 Csf, Spinal Fluid Gram Stain - Final 07/19/18 11:30 Csf, Spinal Fluid CSF Culture - Preliminary No growth in 24 hours. Final to follow. Clinical Impression(s) from Imaging Studies Head CTA 07/21/18 11:14 IMPRESSION: Normal [place] without a demonstrated aneurysm or hemodynamically significant stenosis. Electronically Signed: Melchor Ramey, at 13:04 EDT , Service support , Medical Necessity - Tobacco Use Smoking Status: Former smoker Tobacco Use: Cigarettes Assessment/Plan All Active Problems Hypothyroidism (Acute) Hypertensive emergency without congestive heart failure (Acute) RECOMMENDATIONS: 1. Discussed with neurology about discontinuation of nicardipine 2. Await transfer to tertiary center 3. Possible transfer out of the intensive care unit if off nicardipine IMPRESSIONS: 1. Hypertensive emergency Improved. Patient denies any previous history of hypertension, but does have significant elevation of blood pressure at this time. Unclear if this is related to problem #2. Patient's blood pressure continues to improve, along with headache. Patient now has a blood pressure within normal range. Will discuss with neurology on whether nicardipine can be discontinued. 2. Suspected subarachnoid hemorrhage Patient does not appear to have any deficits at this time outside of the headache. Some concern given the persistence of headache. Still waiting on a bed at a tertiary center for evaluation by neurosurgery. Continue to treat pain symptomatically. Discussed with neurology if nicardipine can be discontinued. If this can be discontinued, patient can likely leave the intensive care unit after being monitored for a couple hours to be sure the hypertension does not recur. Code Visit Inpatient E&M: 04990 Subs Hosp L2
--- NOTE | 2018-07-22 07:17 | PN_ITS ---
Subjective: Patient continues to wait on a bed from [facility]. Patient's headache is slightly improved and she has not required as much pain medication. Patient does have issues with nausea and vomiting, but responded well to Compazine overnight. No focal neurologic deficits have been reported by the patient and NIH scores have been discontinued. Objective: Imaging was personally reviewed. Agree with formal interpretation. General: Alert, Oriented x3, Cooperative, No apparent distress, Well developed, Well nourished, - - No conversational dyspnea. Less photophobia noted. HEENT: Atraumatic, PERRLA, EOMI, Normocephalic, - - No scleral icterus or injection noted. Oral: Moist Mucosa, No Gingival or Mucosal Lesions/ Ulcerations Neck: Supple, No JVD, No Nodes, Trachea Midline Lungs: Clear to auscultation, Normal air movement, No rhonchi, No wheeze, No rales Cardiovascular: Regular rate, Regular Rhythm, Normal S1, Normal S2, No murmurs Abdomen: Bowel Sounds Present, Soft, Non Tender, Non-Distended Extremities: No clubbing, No cyanosis, No edema Skin: No rashes, No breakdown Musculoskeletal: No Tenderness to Palpation of Joints or Extremities Lymphatic: No Cervical, Supraclavicular, or Inguinal Adenopathy Neurological: Cranial nerves II-XII grossly intact, Neuro grossly intact, Motor Exam 5/5 strength throughout Psych/Mental Status: Alert and oriented to time, place, person, mood and affect Vital Signs Temp Pulse Resp BP Pulse Ox 37.2 C 82 16 134/60 H 94 07/22/18 04:00 07/22/18 07:00 07/22/18 07:00 07/22/18 07:00 07/22/18 07:00 Oxygen Flow Rate (L/min) 2 Oxygen Delivery Method Room Air Weight: 58.3 kg Body Mass Index (BMI) 20.5 Intake and Output for Last 24 Hours 07/20/18 07/21/18 07/22/18 23:59 23:59 23:59 Intake Total 2791 / 2791 5522 / 5522 988 / 988 Output Total 200 / 200 3200 / 3200 250 / 250 Balance 2591 / 2591 2322 / 2322 738 / 738 Labs (Last 48 Hours) 07/19/18 11:30 CSF Comment Reviewed Microbiology 07/19/18 11:30 Csf, Spinal Fluid Gram Stain - Final 07/19/18 11:30 Csf, Spinal Fluid CSF Culture - Preliminary No growth in 24 hours. Final to follow. Clinical Impression(s) from Imaging Studies Head CTA 07/21/18 11:14 IMPRESSION: Normal [place] without a demonstrated aneurysm or hemodynamically significant stenosis. Electronically Signed: Melchor Ramey, at 13:04 EDT , Service support , Medical Necessity - Tobacco Use Smoking Status: Former smoker Tobacco Use: Cigarettes Assessment/Plan All Active Problems Hypothyroidism (Acute) Hypertensive emergency without congestive heart failure (Acute) RECOMMENDATIONS: 1. Discussed with neurology about discontinuation of nicardipine 2. Await transfer to tertiary center 3. Possible transfer out of the intensive care unit if off nicardipine IMPRESSIONS: 1. Hypertensive emergency Improved. Patient denies any previous history of hypertension, but does have significant elevation of blood pressure at this time. Unclear if this is related to problem #2. Patient's blood pressure continues to improve, along with headache. Patient now has a blood pressure within normal range. Will discuss with neurology on whether nicardipine can be discontinued. 2. Suspected subarachnoid hemorrhage Patient does not appear to have any deficits at this time outside of the headache. Some concern given the persistence of headache. Still waiting on a bed at a tertiary center for evaluation by neurosurgery. Continue to treat pain symptomatically. Discussed with neurology if nicardipine can be discontinued. If this can be discontinued, patient can likely leave the intensive care unit after being monitored for a couple hours to be sure the hypertension does not recur. Code Visit Inpatient E&M: 92413 Subs Hosp L2
[2018-07-22] MEDS: 0.9% Normal Saline 1,000 ML 75 ML IV (11:22)
[2018-07-22] MEDS: Amitriptyline 25 MG Tablet 50 MG PO ×2 (11:55→21:12)
--- NOTE | 2018-07-22 13:20 | PCM.PN.NEU ---
Patient Problems: Active and Suspected Problems Hypothyroidism (Acute) Hypertensive emergency without congestive heart failure (Acute) Subjective: No new complaints. She feels somewhat tired and debilitated. Her headache remains improved. Tylenol is helping but does not last long enough, she prefers not to take morphine. Less vomiting. Able to tolerate some foods. and another family member present, questions are answered. Blood pressure remains well controlled per ICU staff. - Physical Exam General: Alert, Oriented x3, Cooperative, No apparent distress Neurological: Cranial nerves II-XII grossly intact Psych/Mental Status: Normal Affect, Alert and oriented to time, place, person, mood and affect Vital Signs Temp Pulse Resp BP Pulse Ox 37.1 C 81 17 134/77 H 97 07/22/18 12:00 07/22/18 12:00 07/22/18 12:00 07/22/18 12:00 07/22/18 12:00 Oxygen Flow Rate (L/min) 2 Oxygen Delivery Method Room Air Weight: 58.3 kg Body Mass Index (BMI) 20.5 Intake and Output for Last 24 Hours 07/20/18 07/21/18 07/22/18 23:59 23:59 23:59 Intake Total 2791 / 2791 5522 / 5522 1871 / 1871 Output Total 200 / 200 3200 / 3200 950 / 950 Balance 2591 / 2591 2322 / 2322 921 / 921 Microbiology Past 72 Hours 07/19/18 11:30 Gram Stain - Final Csf, Spinal Fluid CSF Culture - Preliminary No growth in 24 hours. Final to follow. Current Medications Generic Name Dose Route Start Last Admin Trade Name Freq PRN Reason Stop Dose Admin Acetaminophen 650 mg 07/19/18 16:30 07/22/18 10:35 Tylenol PO 650 mg Q4H PRN PRN Administration MILD-MOD PAIN (1-5/10) Amitriptyline HCl 50 mg 07/22/18 22:00 Elavil PO QHS LILIAN Hydralazine HCl 10 mg 07/19/18 22:52 07/20/18 12:35 Apresoline Iv IV 10 mg Q4H PRN PRN Administration SBP GREATER THAN 150 Nicardipine HCl 25 mg/ Sodium 250 mls @ 50 mls/hr 07/20/18 17:03 07/22/18 11:13 Chloride CONT INF Not Given .Q5H LILIAN 5 MG/HR Sodium Chloride 1,000 mls @ 75 mls/hr 07/21/18 09:05 07/22/18 11:22 IV 75 mls/hr .[id number] LILIAN Administration Labetalol HCl 20 mg 07/19/18 22:52 07/20/18 11:36 Trandate IV 20 mg Q4H PRN PRN Administration SBP GREATER THAN 150 Levothyroxine Sodium 137 mcg 07/20/18 06:00 07/22/18 05:32 Synthroid PO 137 mcg DAILY@0600 LILIAN Administration Magnesium Hydroxide 30 ml 07/19/18 16:30 Milk Of Magnesia PO DAILY PRN Constipation Ondansetron HCl 4 mg 07/19/18 18:52 07/21/18 19:55 Zofran IV 4 mg Q8H PRN PRN Administration NAUSEA Oxycodone HCl 5 mg 07/22/18 07:05 Oxyir PO Q6H PRN PRN SEVERE PAIN (6-10/10) Prochlorperazine Edisylate 10 mg 07/20/18 09:10 07/22/18 00:25 Compazine Iv IV 10 mg Q6H PRN PRN Administration NAUSEA Sodium Chloride 5 - 15 ml 07/19/18 17:00 07/22/18 00:25 IV 10 ml UD PRN Administration SALINE FLUSH Repeat CTA reviewed, no evidence of aneurysm. Medical Necessity - Tobacco Use Smoking Status: Former smoker Tobacco Use: Cigarettes Assessment/Plan All Active Problems Hypothyroidism (Acute) Hypertensive emergency without congestive heart failure (Acute) Subarachnoid hemorrhage versus complex migraine versus viral meningitis. Overall significantly improved, there does not appear to be in need to transfer at this point she is doing very well I think it is reasonable to continue oral antihypertensives as needed and to continue to observe her on the regular hospital floor. Awaiting further clarification of CSF results from pathology. The CSF white count appeared to be high with mostly lymphocytes and elevated protein however the pathologist indicated that this was from a concentrated specimen so the white count is not necessarily valid. Awaiting further clarification.
--- NOTE | 2018-07-22 14:45 | PN_ITS ---
Patient Problems: Active and Suspected Problems Hypothyroidism (Acute) Hypertensive emergency without congestive heart failure (Acute) Subjective: Feels better than she did on admission, and even since yesterday. No issues overnight. Was able to tolerate a little bit of the diet that she does feel tired and worn out. Vitals/I&O's: Vital Signs Temp Pulse Resp BP Pulse Ox 98.8 F 77 18 143/74 H 93 07/22/18 12:00 07/22/18 14:00 07/22/18 14:00 07/22/18 14:00 07/22/18 14:00 Oxygen Flow Rate (L/min) 2 Oxygen Delivery Method Room Air Weight: 128 lb 8.472 oz Body Mass Index (BMI) 20.5 Intake and Output for Last 24 Hours 07/20/18 07/21/18 07/22/18 23:59 23:59 23:59 Intake Total 2791 / 2791 5522 / 5522 1871 / 1871 Output Total 200 / 200 3200 / 3200 950 / 950 Balance 2591 / 2591 2322 / 2322 921 / 921 General: Alert, Oriented x3, Cooperative, No apparent distress HEENT: Atraumatic, PERRLA, EOMI, Normocephalic Oral: Moist Mucosa Neck: Supple, No JVD, Trachea Midline Lungs: Clear to auscultation, Normal air movement, No rhonchi, No wheeze, No rales Cardiovascular: Regular rate, Regular Rhythm, Normal S1, Normal S2, No murmurs Abdomen: Soft, Non Tender, Non-Distended, No Hepato-splenomegaly Extremities: No edema, Capillary Refill Less than 3 Seconds Skin: No rashes, No breakdown Musculoskeletal: No Tenderness to Palpation of Joints or Extremities Neurological: Cranial nerves II-XII grossly intact, Neuro grossly intact, Motor Exam 5/5 strength throughout, Sensory exam intact to light touch and pain Psych/Mental Status: Normal Affect, Appropriate Microbiology Past 72 Hours 07/19/18 11:30 Csf, Spinal Fluid Gram Stain - Final 07/19/18 11:30 Csf, Spinal Fluid CSF Culture - Preliminary No growth in 24 hours. Final to follow. Current Medications Acetaminophen (Tylenol) 650 mg PO Q4H PRN PRN PRN Reason: MILD-MOD PAIN (1-5/10) Last Admin: 07/22/18 10:35 Dose: 650 mg Amitriptyline HCl (Elavil) 50 mg PO QHS [facility] Hydralazine HCl (Apresoline Iv) 10 mg IV Q4H PRN PRN PRN Reason: SBP GREATER THAN 150 Last Admin: 07/20/18 12:35 Dose: 10 mg Sodium Chloride () 1,000 mls @ 75 mls/hr IV .[id number] [facility] Last Admin: 07/22/18 11:22 Dose: 75 mls/hr Labetalol HCl (Trandate) 20 mg IV Q4H PRN PRN PRN Reason: SBP GREATER THAN 150 Last Admin: 07/20/18 11:36 Dose: 20 mg Levothyroxine Sodium (Synthroid) 137 mcg PO DAILY@0600 [facility] Last Admin: 07/22/18 05:32 Dose: 137 mcg Magnesium Hydroxide (Milk Of Magnesia) 30 ml PO DAILY PRN PRN Reason: Constipation Ondansetron HCl (Zofran) 4 mg IV Q8H PRN PRN PRN Reason: NAUSEA Last Admin: 07/21/18 19:55 Dose: 4 mg Oxycodone HCl (Oxyir) 5 mg PO Q6H PRN PRN PRN Reason: SEVERE PAIN (6-10/10) Prochlorperazine Edisylate (Compazine Iv) 10 mg IV Q6H PRN PRN PRN Reason: NAUSEA Last Admin: 07/22/18 00:25 Dose: 10 mg Sodium Chloride () 5 - 15 ml IV UD PRN PRN Reason: SALINE FLUSH Last Admin: 07/22/18 00:25 Dose: 10 ml Medical Necessity - Tobacco Use Smoking Status: Former smoker Tobacco Use: Cigarettes Assessment/Plan All Active Problems Hypothyroidism (Acute) Hypertensive emergency without congestive heart failure (Acute) 1. Acute intracranial hemorrhage of unknown origin versus possible viral meningitis versus complex migraine -This is solely based on the history of headache and xanthochromia on an LP, which was very slight 10 and she did have RBCs in the last 2 therefore could also be secondary to a traumatic tap -We will hold hydralazine as likelihood of bleed is a lot less now, will transfer to PCU and continue with as needed blood pressure medications. -Consult to neurology for evaluation and plan of care after discharge -Hold her Mobic for her arthritis -We will provide with IV fluids to hopefully increase her CSF which may help wi th her headache -Of note her CSF analysis also shows elevated protein as well as elevated white blood cells and given the fact that a repeat CT of the head still shows no bleed or aneurysms, this may also be a viral meningitis 2. Hypothyroidism -Stable -Continue with her home Synthroid 3. Arthritis -Mostly in her left hand, and is unable to squeeze very well because of it -We will continue to hold the Mobic until discharge. DVT: SCDs Code Visit Inpatient E&M: 96215 Subs Hosp L2
[2018-07-22] MEDS: hydrALAZINE 20 MG/ML Vial 10 MG IV (21:17)
[2018-07-22] MEDS: oxyCODONE 5 MG Tablet PO (22:32)
[2018-07-23] VITALS (14 sets, daily range): BP systolic 151–174; BP diastolic 73–92; PULSE 65–78; RESP 16; TEMP 36.7–37.4; O2SAT 93–97
[2018-07-23] MEDS: 0.9% Normal Saline 1,000 ML 75 ML IV ×2 (01:17→13:44)
[2018-07-23] MEDS: Levothyroxine 137 MCG Tablet PO (05:49)
[2018-07-23 06:20] LABS: Absolute Lymphocyte Count 0.92 X10^3/ul (0.83-4.51); Absolute Neutrophil Count 5.7 X10^3/uL (2.0-7.7); Basophil# 0.03 X10^3/uL; Basophil% 0.4 % (0-1); Eosinophil# 0.01 X10^3/uL; Eosinophils% 0.1 % (0-5); Hematocrit 36.8 % (37-47); Hemoglobin 12.1 g/dl (12.0-15.0); Lymphocyte # 0.92 X10^3/ul (4.0); Lymphocyte % 12.4 % (19-41); Mean Corp Hgb Conc 32.9 g/gl (32-36); Mean Corpuscular Hgb 28.1 pg (27.0-32.0); Mean Corpuscular Volume 85.6 fL (81-99); Monocyte% 9.5 % (0-10); Neutrophil # 5.71 X10^3/uL (2.7-7.7); Neutrophil % 77.2 % (47-70); Platelet Count 186 K/mm3 (150-450); RBC Distribution Width CV 13.2 % (11.6-14.6); RBC Distribution Width SD 40.5 fl (35.1-43.9); White Blood Count 7.4 K/mm3 (4.4-11.0)
[2018-07-23 06:27] LABS: POSITIVE COUNT NO; POSITIVE DIFFERENTIAL NO; POSITIVE MORPHOLOGY NO
[2018-07-23 06:45] LABS: Anion Gap 7 (5-15); BUN 9 mg/dL (7-18); BUN/Creat Ratio 17.7 RATIO (10-20); Calcium,Total 7.9 mg/dL (8.5-10.1); Chloride 102 mmol/L (98-107); Creatinine, Serum 0.51 mg/dL (0.55-1.02); EST Glomerular Filtration Rate 129 mL/min (>60); Est Glom Filt Rate - Afr Amer 156 mL/min (>60); Estimated Creatinine Clearance 86.98 ml/min; Glucose 103 mg/dL (74-106); Potassium 2.7 mmol/L (3.5-5.1); Sodium Level 137 mmol/L (136-145)
[2018-07-23 07:07] LABS: Albumin, Serum 2.9 g/dL (3.2-5.0)
[2018-07-23] MEDS: hydrALAZINE 20 MG/ML Vial 10 MG IV (08:59)
[2018-07-23] MEDS: 0.9% NaCl Peripheral Flush Adult/Peds IV ×2 (09:00→13:35)
[2018-07-23] MEDS: Potassium Chloride 10mEq/100mL 10 MEQ/100 ML IV.SOLN. 100 MEQ IV BOLUS ×4 (09:00→12:05)
--- NOTE | 2018-07-23 09:37 | PCM.PN.HOSP ---
Patient Problems: Active and Suspected Problems Hypothyroidism (Acute) Hypertensive emergency without congestive heart failure (Acute) Subjective: Continues to have a headache, though it is not felt to be due to a head bleed and is more likely secondary to a viral meningitis. She was discharged from the ICU and is currently off the nicardipine. Vitals/I&O's: Vital Signs Temp Pulse Resp BP Pulse Ox 99.3 F H 70 16 169/92 H 95 07/23/18 08:50 07/23/18 08:59 07/23/18 08:50 07/23/18 08:50 07/23/18 08:50 Oxygen Flow Rate (L/min) 2 Oxygen Delivery Method Room Air Weight: 125 lb 7.088 oz Body Mass Index (BMI) 20.5 Intake and Output for Last 24 Hours 07/21/18 07/22/18 07/23/18 23:59 23:59 23:59 Intake Total 5522 / 5522 2141 / 2141 1317 / 1317 Output Total 3200 / 3200 950 / 950 Balance 2322 / 2322 1191 / 1191 1317 / 1317 General: Alert, Oriented x3, Cooperative, No apparent distress HEENT: Atraumatic, PERRLA, EOMI, Normocephalic Oral: Moist Mucosa Neck: Supple, No JVD, Trachea Midline Lungs: Clear to auscultation, Normal air movement, No rhonchi, No wheeze, No rales Cardiovascular: Regular rate, Regular Rhythm, Normal S1, Normal S2, No murmurs Abdomen: Soft, Non Tender, Non-Distended, No Hepato-splenomegaly Extremities: No edema, Capillary Refill Less than 3 Seconds Skin: No rashes, No breakdown Musculoskeletal: No Tenderness to Palpation of Joints or Extremities Neurological: Cranial nerves II-XII grossly intact, Neuro grossly intact, Motor Exam 5/5 strength throughout, Sensory exam intact to light touch and pain Psych/Mental Status: Normal Affect, Appropriate Microbiology Past 72 Hours 07/19/18 11:30 Csf, Spinal Fluid Gram Stain - Final 07/19/18 11:30 Csf, Spinal Fluid CSF Culture - Final No growth in 72 hours. Laboratory Results 07/23/18 05:40: WBC 7.4, RBC 4.30, Hgb 12.1, Hct 36.8 L, MCV 85.6, MCH 28.1, MCHC 32.9, RDW 13.2, RDW Differential 40.5, Plt Count 186, MPV 10.0, Immature Gran % (Auto) 0.400, Neut % (Auto) 77.2 H, Lymph % (Auto) 12.4 L, [place] % (Auto) 9.5, Eos % (Auto) 0.1, Baso % (Auto) 0.4, Absolute Neuts (auto) 5.7, Absolute Lymphs (auto) 0.92, Total Counted Not Reportable 07/23/18 05:40: Sodium 137, Potassium 2.7 L*, Chloride 102, Carbon Dioxide 28.0, Anion Gap 7, BUN 9, Creatinine 0.51 L, Estim Creat Clear Calc 86.98, Est GFR (MDRD) Af Amer 156, Est GFR (MDRD) Non-Af 129, BUN/Creatinine Ratio 17.7, Glucose 103, Calcium 7.9 L 07/23/18 05:40: Magnesium 2.0, Albumin 2.9 L Current Medications Acetaminophen (Tylenol) 650 mg PO Q4H PRN PRN PRN Reason: MILD-MOD PAIN (-08/28) Last Admin: 07/22/18 17:49 Dose: 650 mg Amitriptyline HCl (Elavil) 50 mg PO QHS [facility] Last Admin: 07/22/18 21:12 Dose: 50 mg Hydralazine HCl (Apresoline Iv) 10 mg IV Q4H PRN PRN PRN Reason: SBP GREATER THAN 150 Last Admin: 07/23/18 08:59 Dose: 10 mg Sodium Chloride () 1,000 mls @ 75 mls/hr IV .[id number] [facility] Last Admin: 07/23/18 01:17 Dose: 75 mls/hr Potassium Chloride () 10 meq in 100 mls @ 100 mls/hr IV BOLUS Q1H [facility] Stop: 07/23/18 11:59 Last Admin: 07/23/18 09:00 Dose: 100 mls/hr Labetalol HCl (Trandate) 20 mg IV Q4H PRN PRN PRN Reason: SBP GREATER THAN 150 Last Admin: 07/22/18 19:15 Dose: 20 mg Levothyroxine Sodium (Synthroid) 137 mcg PO DAILY@0600 [facility] Last Admin: 04/04/19 05:49 Dose: 137 mcg Magnesium Hydroxide (Milk Of Magnesia) 30 ml PO DAILY PRN PRN Reason: Constipation Ondansetron HCl (Zofran) 4 mg IV Q8H PRN PRN PRN Reason: NAUSEA Last Admin: 07/21/18 19:55 Dose: 4 mg Oxycodone HCl (Oxyir) 5 mg PO Q6H PRN PRN PRN Reason: SEVERE PAIN (6-10/10) Last Admin: 07/22/18 22:32 Dose: 5 mg Prochlorperazine Edisylate (Compazine Iv) 10 mg IV Q6H PRN PRN PRN Reason: NAUSEA Last Admin: 07/22/18 22:40 Dose: 10 mg Sodium Chloride () 5 - 15 ml IV UD PRN PRN Reason: SALINE FLUSH Last Admin: 07/23/18 09:00 Dose: 10 ml Medical Necessity - Tobacco Use Smoking Status: Former smoker Tobacco Use: Cigarettes Assessment/Plan All Active Problems Hypothyroidism (Acute) Hypertensive emergency without congestive heart failure (Acute) 1. Acute intracranial hemorrhage of unknown origin versus possible viral meningitis versus complex migraine -This is solely based on the history of headache and xanthochromia on an LP, which was very slight 10 and she did have RBCs in the last 2 therefore could also be secondary to a traumatic tap -continue with as needed blood pressure medications. -Appreciate neurology input, Elavil added for headache may need a triptan, will discuss -Hold her Mobic for her arthritis -We will provide with IV fluids to hopefully increase her CSF which may help with her headache -Of note her CSF analysis also shows elevated protein as well as elevated white blood cells and given the fact that a repeat CT of the head still shows no bleed or aneurysms, this may also be a viral meningitis 2. Hypothyroidism -Stable -Continue with her home Synthroid 3. Arthritis -Mostly in her left hand, and is unable to squeeze very well because of it -We will continue to hold the Mobic until discharge. DVT: SCDs Code Visit Inpatient E&M: 29671 Subs Hosp L2
--- NOTE | 2018-07-23 09:42 | PN_ITS ---
Patient Problems: Active and Suspected Problems Hypothyroidism (Acute) Hypertensive emergency without congestive heart failure (Acute) Subjective: Continues to have a headache, though it is not felt to be due to a head bleed and is more likely secondary to a viral meningitis. She was discharged from the ICU and is currently off the nicardipine. Vitals/I&O's: Vital Signs Temp Pulse Resp BP Pulse Ox 99.3 F H 70 16 169/92 H 95 07/23/18 08:50 07/23/18 08:59 07/23/18 08:50 07/23/18 08:50 07/23/18 08:50 Oxygen Flow Rate (L/min) 2 Oxygen Delivery Method Room Air Weight: 125 lb 7.088 oz Body Mass Index (BMI) 20.5 Intake and Output for Last 24 Hours 07/21/18 07/22/18 07/23/18 23:59 23:59 23:59 Intake Total 5522 / 5522 2141 / 2141 1317 / 1317 Output Total 3200 / 3200 950 / 950 Balance 2322 / 2322 1191 / 1191 1317 / 1317 General: Alert, Oriented x3, Cooperative, No apparent distress HEENT: Atraumatic, PERRLA, EOMI, Normocephalic Oral: Moist Mucosa Neck: Supple, No JVD, Trachea Midline Lungs: Clear to auscultation, Normal air movement, No rhonchi, No wheeze, No rales Cardiovascular: Regular rate, Regular Rhythm, Normal S1, Normal S2, No murmurs Abdomen: Soft, Non Tender, Non-Distended, No Hepato-splenomegaly Extremities: No edema, Capillary Refill Less than 3 Seconds Skin: No rashes, No breakdown Musculoskeletal: No Tenderness to Palpation of Joints or Extremities Neurological: Cranial nerves II-XII grossly intact, Neuro grossly intact, Motor Exam 5/5 strength throughout, Sensory exam intact to light touch and pain Psych/Mental Status: Normal Affect, Appropriate Microbiology Past 72 Hours 07/19/18 11:30 Csf, Spinal Fluid Gram Stain - Final 07/19/18 11:30 Csf, Spinal Fluid CSF Culture - Final No growth in 72 hours. Laboratory Results 07/23/18 05:40: WBC 7.4, RBC 4.30, Hgb 12.1, Hct 36.8 L, MCV 85.6, MCH 28.1, MCH C 32.9, RDW 13.2, RDW Differential 40.5, Plt Count 186, MPV 10.0, Immature Gran % (Auto) 0.400, Neut % (Auto) 77.2 H, Lymph % (Auto) 12.4 L, [place] % (Auto) 9.5, Eos % (Auto) 0.1, Baso % (Auto) 0.4, Absolute Neuts (auto) 5.7, Absolute Lymphs (auto) 0.92, Total Counted Not Reportable 07/23/18 05:40: Sodium 137, Potassium 2.7 L*, Chloride 102, Carbon Dioxide 28.0, Anion Gap 7, BUN 9, Creatinine 0.51 L, Estim Creat Clear Calc 86.98, Est GFR (MDRD) Af Amer 156, Est GFR (MDRD) Non-Af 129, BUN/Creatinine Ratio 17.7, Glucose 103, Calcium 7.9 L 07/23/18 05:40: Magnesium 2.0, Albumin 2.9 L Current Medications Acetaminophen (Tylenol) 650 mg PO Q4H PRN PRN PRN Reason: MILD-MOD PAIN (-08/28) Last Admin: 07/22/18 17:49 Dose: 650 mg Amitriptyline HCl (Elavil) 50 mg PO QHS [facility] Last Admin: 07/22/18 21:12 Dose: 50 mg Hydralazine HCl (Apresoline Iv) 10 mg IV Q4H PRN PRN PRN Reason: SBP GREATER THAN 150 Last Admin: 07/23/18 08:59 Dose: 10 mg Sodium Chloride () 1,000 mls @ 75 mls/hr IV .[id number] [facility] Last Admin: 07/23/18 01:17 Dose: 75 mls/hr Potassium Chloride () 10 meq in 100 mls @ 100 mls/hr IV BOLUS Q1H [facility] Stop: 07/23/18 11:59 Last Admin: 07/23/18 09:00 Dose: 100 mls/hr Labetalol HCl (Trandate) 20 mg IV Q4H PRN PRN PRN Reason: SBP GREATER THAN 150 Last Admin: 07/22/18 19:15 Dose: 20 mg Levothyroxine Sodium (Synthroid) 137 mcg PO DAILY@0600 [facility] Last Admin: 04/04/19 05:49 Dose: 137 mcg Magnesium Hydroxide (Milk Of Magnesia) 30 ml PO DAILY PRN PRN Reason: Constipation Ondansetron HCl (Zofran) 4 mg IV Q8H PRN PRN PRN Reason: NAUSEA Last Admin: 07/21/18 19:55 Dose: 4 mg Oxycodone HCl (Oxyir) 5 mg PO Q6H PRN PRN PRN Reason: SEVERE PAIN (6-10/10) Last Admin: 07/22/18 22:32 Dose: 5 mg Prochlorperazine Edisylate (Compazine Iv) 10 mg IV Q6H PRN PRN PRN Reason: NAUSEA Last Admin: 07/22/18 22:40 Dose: 10 mg Sodium Chloride () 5 - 15 ml IV UD PRN PRN Reason: SALINE FLUSH Last Admin: 07/23/18 09:00 Dose: 10 ml Medical Necessity - Tobacco Use Smoking Status: Former smoker Tobacco Use: Cigarettes Assessment/Plan All Active Problems Hypothyroidism (Acute) Hypertensive emergency without congestive heart failure (Acute) 1. Acute intracranial hemorrhage of unknown origin versus possible viral meningitis versus complex migraine -This is solely based on the history of headache and xanthochromia on an LP, which was very slight 10 and she did have RBCs in the last 2 therefore could also be secondary to a traumatic tap -continue with as needed blood pressure medications. -Appreciate neurology input, Elavil added for headache may need a triptan, will discuss -Hold her Mobic for her arthritis -We will provide with IV fluids to hopefully increase her CSF which may help with her headache -Of note her CSF analysis also shows elevated protein as well as elevated white blood cells and given the fact that a repeat CT of the head still shows no bleed or aneurysms, this may also be a viral meningitis 2. Hypothyroidism -Stable -Continue with her home Synthroid 3. Arthritis -Mostly in her left hand, and is unable to squeeze very well because of it -We will continue to hold the Mobic until discharge. DVT: SCDs Code Visit Inpatient E&M: 12133 Subs Hosp L2
[2018-07-23] MEDS: Acetaminophen 325 MG Tablet 650 MG PO (11:06)
--- NOTE | 2018-07-23 12:18 | PCM.PN.NEU ---
Patient Problems: Active and Suspected Problems Hypothyroidism (Acute) Hypertensive emergency without congestive heart failure (Acute) Subjective: cao 2/10, worse this am, no n/v x >24hrs. - Physical Exam General: Alert, Oriented x3, Cooperative Neurological: Cranial nerves II-XII grossly intact Psych/Mental Status: Normal Affect Vital Signs Temp Pulse Resp BP Pulse Ox 37.4 C H 68 16 169/92 H 95 07/23/18 08:50 07/23/18 10:39 07/23/18 08:50 07/23/18 08:50 07/23/18 08:50 Oxygen Flow Rate (L/min) 2 Oxygen Delivery Method Room Air Weight: 56.9 kg Body Mass Index (BMI) 20.5 Intake and Output for Last 24 Hours 07/21/18 07/22/18 07/23/18 23:59 23:59 23:59 Intake Total 5522 / 5522 2141 / 2141 2546 / 2546 Output Total 3200 / 3200 950 / 950 Balance 2322 / 2322 1191 / 1191 2546 / 2546 Microbiology Past 72 Hours 07/19/18 11:30 Gram Stain - Final Csf, Spinal Fluid CSF Culture - Final No growth in 72 hours. Laboratory Tests Past 24 Hrs 07/23/18 07/23/18 07/23/18 05:40 05:40 05:40 WBC 7.4 RBC 4.30 Hgb 12.1 Hct 36.8 L MCV 85.6 MCH 28.1 MCHC 32.9 RDW 13.2 RDW Differential 40.5 Plt Count 186 MPV 10.0 Immature Gran % (Auto) 0.400 Neut % (Auto) 77.2 H Lymph % (Auto) 12.4 L [place] % (Auto) 9.5 Eos % (Auto) 0.1 Baso % (Auto) 0.4 Absolute Neuts (auto) 5.7 Absolute Lymphs (auto) 0.92 Total Counted Not Reportable Sodium 137 Potassium 2.7 L* Chloride 102 Carbon Dioxide 28.0 Anion Gap 7 BUN 9 Creatinine 0.51 L Estim Creat Clear Calc 86.98 Est GFR (MDRD) Af Amer 156 Est GFR (MDRD) Non-Af 129 BUN/Creatinine Ratio 17.7 Glucose 103 Calcium 7.9 L Magnesium 2.0 Albumin 2.9 L Current Medications Generic Name Dose Route Start Last Admin Trade Name Freq PRN Reason Stop Dose Admin Acetaminophen 650 mg 07/19/18 16:30 07/23/18 11:06 Tylenol PO 650 mg Q4H PRN PRN Administration MILD-MOD PAIN (1-5) Amitriptyline HCl 50 mg 07/22/18 22:00 07/22/18 21:12 Elavil PO 50 mg QHS [facility] Administration Hydralazine HCl 10 mg 07/19/18 22:52 07/23/18 08:59 Apresoline Iv IV 10 mg Q4H PRN PRN Administration SBP GREATER THAN 150 Sodium Chloride 1,000 mls @ 75 mls/hr 07/21/18 09:05 07/23/18 01:17 IV 75 mls/hr .[id number] [facility]IL[facility] Administration Labetalol HCl 20 mg 07/19/18 22:52 07/22/18 19:15 Trandate IV 20 mg Q4H PRN PRN Administration SBP GREATER THAN 150 Levothyroxine Sodium 137 mcg 07/20/18 06:00 07/23/18 05:49 Synthroid PO 137 mcg DAILY@0600 [facility] Administration Magnesium Hydroxide 30 ml 07/19/18 16:30 Milk Of Magnesia PO DAILY PRN Constipation Ondansetron HCl 4 mg 07/19/18 18:52 07/21/18 19:55 Zofran IV 4 mg Q8H PRN PRN Administration NAUSEA Oxycodone HCl 5 mg 07/22/18 07:05 07/22/18 22:32 Oxyir PO 5 mg Q6H PRN PRN Administration SEVERE PAIN (6-1010) Prochlorperazine Edisylate 10 mg 07/20/18 09:10 07/22/18 22:40 Compazine Iv IV 10 mg Q6H PRN PRN Administration NAUSEA Sodium Chloride 5 - 15 ml 07/19/18 17:00 07/23/18 09:00 IV 10 ml UD PRN Administration SALINE FLUSH Medical Necessity - Tobacco Use Smoking Status: Former smoker Tobacco Use: Cigarettes Assessment/Plan All Active Problems Hypothyroidism (Acute) Hypertensive emergency without congestive heart failure (Acute) Subarachnoid hemorrhage versus complex migraine versus viral meningitis. Overall improved. csf results equivocal. add norvasc po scheduled continue elavil increase activity
[2018-07-23] MEDS: amLODIPine 5 MG Tablet PO (13:35)
[2018-07-23 15:06] LABS: Potassium 3.5 mmol/L (3.5-5.1)
[2018-07-23] MEDS: Amitriptyline 25 MG Tablet 50 MG PO (21:27)
[2018-07-24] MEDS: Acetaminophen 325 MG Tablet 650 MG PO ×2 (00:19→06:04)
[2018-07-24 03:01] VITALS: PULSE 69
[2018-07-24 03:15] VITALS: BP 143/86; PULSE 71; RESP 16; TEMP 36.7; O2SAT 93
[2018-07-24] MEDS: 0.9% Normal Saline 1,000 ML 75 ML IV (03:18)
[2018-07-24] MEDS: Levothyroxine 137 MCG Tablet PO (06:01)
[2018-07-24 06:08] LABS: Anion Gap 8 (5-15); BUN 7 mg/dL (7-18); BUN/Creat Ratio 12.3 RATIO (10-20); Calcium,Total 8.1 mg/dL (8.5-10.1); Chloride 105 mmol/L (98-107); Creatinine, Serum 0.57 mg/dL (0.55-1.02); EST Glomerular Filtration Rate 113 mL/min (>60); Est Glom Filt Rate - Afr Amer 137 mL/min (>60); Estimated Creatinine Clearance 77.82 ml/min; Glucose 97 mg/dL (74-106); Magnesium 1.8 mg/dL (1.6-2.6); Potassium 2.9 mmol/L (3.5-5.1); Sodium Level 140 mmol/L (136-145)
[2018-07-24 07:49] VITALS: PULSE 74
[2018-07-24 08:00] VITALS: O2SAT 95
[2018-07-24] MEDS: Potassium Chloride 10mEq/100mL 10 MEQ/100 ML IV.SOLN. 100 MEQ IV BOLUS ×4 (09:06→12:32)
[2018-07-24] MEDS: amLODIPine 5 MG Tablet PO (09:10)
[2018-07-24 09:15] VITALS: BP 147/72; PULSE 72; RESP 16; TEMP 36.9; O2SAT 97
[2018-07-24] MEDS: Magnesium Hydroxide 30 ML UDC PO (09:15)
--- NOTE | 2018-07-24 11:12 | DCINST_ITS ---
- Discharge Diagnoses Current Active Problems: Current Active and Chronic Problems Subarachnoid hemorrhage (Chronic) Hypothyroidism (Acute) Arthritis (Chronic) Hypertensive emergency without congestive heart failure (Acute) You will use the following diet at home:: Regular Your food should be the consistency of: Regular Your liquids should be the consistency of: Regular/Thin Discharge Activity: Return to Normal Activity Call your doctor if you observe: Fever of 101 or Higher, Shortness of breath, Dizziness, Fainting spells, Chest pain, Increased palpitations (irregular heartbeat) Allergies/Adverse Reactions: Allergies No Known Allergies Allergy (Verified 07/19/18 08:56) Medications to take at Discharge Levothyroxine Sodium [Synthroid] 137 mcg PO DAILY 07/19/18 Amitriptyline HCl [Elavil] 25 mg PO QHS #30 tablet 07/24/18 Amlodipine [Norvasc] 5 mg PO DAILY #30 tablet 07/24/18 The following prescriptions were given: Amitriptyline HCl [Elavil] 25 mg PO QHS #30 tablet Amlodipine [Norvasc] 5 mg PO DAILY #30 tablet Primary Care Physician: Tami Soto DO [Primary Care Provider] - Please follow up with your Primary Care Physician in: 3-5 days Test Results: Test results from this visit will be discussed in further detail at your follow- up appointment, if applicable. Please Follow Up With: Stefan Baron MD When: 1 month
--- NOTE | 2018-07-24 11:12 | PCM.DC.SUM ---
Discharge Date and Diagnosis - Problem List Patient Problems: Active and Suspected Problems Hypothyroidism (Acute) Hypertensive emergency without congestive heart failure (Acute) Date of Admission: 07/19/18 Date of Discharge: 07/24/18 - Primary Discharge Diagnosis Active and Suspected Problems Hypothyroidism (Acute) Hypertensive emergency without congestive heart failure (Acute) - Secondary Discharge Diagnosis Chronic Problems Subarachnoid hemorrhage (Chronic) Arthritis (Chronic) Hospital Course and Treatment Imaging Results: CTA Brain: FINDINGS: Normal bilateral petrous carotid arteries. Normal right cavernous carotid artery with a normal supraclinoid bifurcation. Normal left cavernous carotid artery with a normal supraclinoid bifurcation. Normal right A1 segments of the anterior cerebral artery. Normal left A1 segments of the anterior cerebral artery. Normal intact anterior communicating artery (ACOM). Normal bilateral A2 segments of the anterior cerebral arteries. Normal right M1 and M2 segments of the middle cerebral arteries, with a normal M1 bifurcation. Normal left M1 and M2 segments of the middle cerebral arteries, with a normal M1 bifurcation. 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 Normal left posterior communicating artery (PCOM). 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 Normal basilar artery with a normal basilar bifurcation. The visualized bilateral superior cerebellar (SCA) arteries are normal. Normal bilateral P1, P2 and visualized P3 segments of the posterior cerebral arteries. There is no demonstrated aneurysm of the [place]. There is no demonstrated abnormality of the visualized brain. IMPRESSION: 1. Normal [place] without a demonstrated aneurysm or hemodynamically significant stenosis. CTA Neck:FINDINGS: AORTIC ARCH: Normal visualized aortic arch. Normal origins of the brachiocephalic, left common carotid, and left subclavian arteries. RIGHT CAROTID ARTERIES: Normal right common carotid artery (CCA). Normal right common carotid bulb. Normal origin of the right internal carotid (ICA) artery without a hemodynamically significant stenosis. Normal visualized cervical portion of the right internal carotid artery. Normal origin of the right external carotid artery (ECA). LEFT CAROTID ARTERIES: Normal left common carotid artery (CCA). Normal left common carotid bulb. Normal origin of the left internal carotid (ICA) artery without a hemodynamically significant stenosis. Normal visualized cervical portion of the left internal carotid artery. Normal origin of the left external carotid artery (ECA). VERTEBRAL ARTERIES: Normal bilateral vertebral arteries. CT/CTA Head W/WO Contrast IMPRESSION: Normal bilateral cervical carotid and vertebral arteries. Consults: Neurology Operations: None Procedures: - - Lumbar puncture Summary of Care Provided: Per HPI: The patient is a 67 year old F with PMH of hypothyroidism presenting with acute onset headache. She states that initially she had a headache on Friday and has steadily worsened over the last 2 days, and this morning it was the worst it had been. She stated that the pain also went down to the base of her neck and down her spine. She denies any visual disturbance, or extremity weakness or change in sensation. In the ER because of the concern for hemorrhage, CT brain was obtained which was negative and a lumbar puncture was performed that showed xanthochromia. There was no evidence of significant bleeding on the lumbar puncture, though she did have 2 red blood cells in the last to be drawn. Therefore a CTA of the head and neck were obtained to evaluate for any aneurysms, which were negative. This was conveyed by the ER physician to to external neuro specialist who felt that she would be stable to stay here at this institution. Hospital Course: 1. Viral meningitis versus complex [id number] female presents with headache that is started on Friday to admission. She states that she was exercising at the time and the headache has continued to get worse over the last couple of days. She when she presented on Friday she stated that her headache was the worst she is ever had and in the ER she had a CTA of the head and neck which was negative for any aneurysm or bleed, however she had a lumbar puncture with xanthochromia and 2 RBCs in the fourth tube, as well as a normal glucose and an equivocal WBC count but elevated protein. She does not have any fevers or chills though she stated that her headache was also going down her spine, though she does not have any nuchal rigidity. Initially the ER physician had called 2 separate neurosurgical services, I believe in [place] and they stated that she could be managed here, however she is continued to have significant blood pressure elevations with SBP is in the 170s-180s despite multiple treatments with labetalol and hydralazine. She is also continue to have emesis though she has not eaten anything. I discussed the case with [facility] neurology and they accepted her for transfer to their neuro ICU. They recommended starting a nicardipine drip and nimodipine. She was transferred to the ICU here at this facility for nicardipine drip and her blood pressures were controlled nicely, [place] did not have a bed for several days and in that time a repeat CT of the head was obtained which was still normal. Given the fact that she did not have any significant symptomatology to transfer to [facility] was canceled and it was thought that this might be due to either viral meningitis or complex migraine. The IV nicardipine was discontinued and she was started on 5 mg of Norvasc as well as 50 mg of Elavil every night. This seems to have helped and she would like to go home today. We will discharge her on 5 mg of Norvasc as well as 25 mg of Elavil for the possible migraine. I did discuss with her that it is important that she follow-up with her primary care physician in 3-5 days and she will follow-up with neurology in about a month. I asked her to hold off on her Mobic for the arthritis until she is seen neurology as an outpatient. 2. Hypothyroidism-stable no change to her home meds, will continue with her Synthroid at her current dose Patient Problems: Active and Suspected Problems Hypothyroidism (Acute) Hypertensive emergency without congestive heart failure (Acute) Objective: General: Alert, Oriented x3, Cooperative, No apparent distress HEENT: Atraumatic, PERRLA, EOMI, Normocephalic Oral: Moist Mucosa Neck: Supple, No JVD, Trachea Midline Lungs: Clear to auscultation, Normal air movement, No rhonchi, No wheeze, No rales Cardiovascular: Regular rate, Regular Rhythm, Normal S1, Normal S2, No murmurs Abdomen: Soft, Non Tender, Non-Distended, No Hepato-splenomegaly Extremities: No edema, Capillary Refill Less than 3 Seconds Skin: No rashes, No breakdown Musculoskeletal: No Tenderness to Palpation of Joints or Extremities Neurological: Cranial nerves II-XII grossly intact, Neuro grossly intact, Motor Exam 5/5 strength throughout, Sensory exam intact to light touch and pain Psych/Mental Status: Normal Affect, Appropriate - Physical Exam Vital Signs Temp Pulse Resp BP Pulse Ox 98.4 F 72 16 147/72 H 97 07/24/18 09:15 07/24/18 09:15 07/24/18 09:15 07/24/18 09:15 07/24/18 09:15 Oxygen Flow Rate (L/min) 2 Oxygen Delivery Method Room Air Weight: 119 lb 14.903 oz Body Mass Index (BMI) 20.5 Intake and Output for Last 24 Hours 07/22/18 07/23/18 07/24/18 23:59 23:59 23:59 Intake Total 2141 / 2141 2546 / 2546 2058 Output Total 950 / 950 Balance 1191 / 1191 2546 / 2546 2058 Microbiology Past 72 Hours 07/19/18 11:30 Gram Stain - Final Csf, Spinal Fluid CSF Culture - Final No growth in 72 hours. Laboratory Tests Past 24 Hrs 07/23/18 07/24/18 14:25 05:10 Sodium 140 Potassium 3.5 2.9 L Chloride 105 Carbon Dioxide 27.0 Anion Gap 8 BUN 7 Creatinine 0.57 Estim Creat Clear Calc 77.82 Est GFR (MDRD) Af Amer 137 Est GFR (MDRD) Non-Af 113 BUN/Creatinine Ratio 12.3 Glucose 97 Calcium 8.1 L Magnesium 1.8 Discharge Activity: Return to Normal Activity Call your doctor if you observe: Fever of 101 or Higher, Shortness of breath, Dizziness, Fainting spells, Chest pain, Increased palpitations (irregular heartbeat) Home Medications: Medications to take at Discharge Levothyroxine Sodium [Synthroid] 137 mcg PO DAILY 07/19/18 Amitriptyline HCl [Elavil] 25 mg PO QHS #30 tablet 07/24/18 Amlodipine [Norvasc] 5 mg PO DAILY #30 tablet 07/24/18 Following Prescrptions Were Given to Patient: Amitriptyline HCl [Elavil] 25 mg PO QHS #30 tablet Amlodipine [Norvasc] 5 mg PO DAILY #30 tablet Primary Care Physician: Tami Soto DO [Primary Care Provider] - Please follow up with your Primary Care Physician in: 3-5 days Please Follow Up With: Stefan Baron MD When: 1 month Disposition: Home Minutes spent on discharge:: 35 Patient Condition:: Good Medical Necessity - Tobacco Use Smoking Status: Former smoker Tobacco Use: Cigarettes Meaningful Use Info Meaningful Use Diagnoses (Choose all that apply): None applicable Code Visit Inpatient E&M: 14974 Disch Hosp
[2018-07-24 11:16] VITALS: PULSE 63
--- NOTE | 2018-07-24 11:39 | CASEMGMT ---
This RN CM to room to speak with pt regarding discharge planning and pt states no concerns with going home at time of discharge. Pt declines HHC/OP therapy at this time. Pt voices no further questions/concerns/needs at this time. [place] RN CM
== END 2018-07-24 11:12 | disposition home or self-care (01) | DRG 75 ==
LOC: ED 15:01 → PCU 16:08 → ICU 07-20 14:26 → PCU 07-22 17:32
PROVIDERS: Hospitalist; Admitting Provider Family Medicine; Emergency Provider Emergency Medicine; Family Provider Family Medicine; PCP Family Medicine; Visit Provider Family Medicine
DX: A87.9 Viral meningitis, unspecified (principal); I16.1 Hypertensive emergency; G43.809 Other migraine, not intractable, without status migrainosus; E03.9 Hypothyroidism, unspecified; M19.90 Unspecified osteoarthritis, unspecified site; Z87.891 Personal history of nicotine dependence
CPT/HCPCS: 36415; 62270; 70450; 70496; 70498; 80048; 82040; 82945; 83735; 84132; 84157; 85025; 85610; 85730; 87070; 87205; 89050; 89051; 99282; J7030; J7050; Q9967; A4216; J2405

== ENCOUNTER → 2018-08-03 07:47 | Outpatient (CLI) | payer MEDICARE, BC, SELFPAY ==
[2018-07-30 09:29] VITALS: BMI 22.8
[2018-08-03 08:51] LABS: ALB/GLOB Ratio 1.1 RATIO (0.9-2.4); AST(SGOT) 34 U/L (15-37); Alanine Aminotransfer ALT/SGPT 37 U/L (13-56); Albumin, Serum 3.6 g/dL (3.2-5.0); Alkaline Phosphatase 73 U/L (45-117); Anion Gap 4 (5-15); BUN 18 mg/dL (7-18); BUN/Creat Ratio 22.6 RATIO (10-20); Calcium,Total 8.7 mg/dL (8.5-10.1); Chloride 105 mmol/L (98-107); EST Glomerular Filtration Rate 77 mL/min (>60); Est Glom Filt Rate - Afr Amer 93 mL/min (>60); Globulin 3.4 g/dL (2.2-4.2); Glucose 91 mg/dL (74-106); Potassium 4.1 mmol/L (3.5-5.1); Sodium Level 138 mmol/L (136-145)
== END ==
PROVIDERS: Family Provider Family Medicine; PCP Family Medicine; Referring Provider Family Medicine; Visit Provider Family Medicine
DX: E87.6 Hypokalemia (principal); R17 Unspecified jaundice
CPT/HCPCS: 36415; 80053

== ENCOUNTER → 2018-08-14 09:03 | Outpatient (CLI) | payer MEDICARE, BC, SELFPAY ==
[2018-07-30 09:29] VITALS: BMI 22.8
[2018-08-14 12:20] LABS: Absolute Lymphocyte Count 1.72 X10^3/ul (0.83-4.51); Basophil# 0.02 X10^3/uL; Basophil% 0.3 % (0-1); Eosinophil# 0.22 X10^3/uL; Eosinophils% 3.3 % (0-5); Hematocrit 43.4 % (37-47); Hemoglobin 14.1 g/dl (12.0-15.0); Lymphocyte # 1.72 X10^3/ul (4.0); Lymphocyte % 26.2 % (19-41); Mean Corp Hgb Conc 32.5 g/gl (32-36); Mean Corpuscular Hgb 28.3 pg (27.0-32.0); Mean Platelet Vol. 10.3 fl (6.2-12.0); Monocyte# 0.58 X10^3/uL; Monocyte% 8.8 % (0-10); Neutrophil # 4.02 X10^3/uL (2.7-7.7); Neutrophil % 61.2 % (47-70); Platelet Count 311 K/mm3 (150-450); RBC Distribution Width CV 14.1 % (11.6-14.6); RBC Distribution Width SD 43.7 fl (35.1-43.9); Red Blood Count 4.99 M/mm3 (4.2-5.4); White Blood Count 6.6 K/mm3 (4.4-11.0)
[2018-08-14 12:26] LABS: POSITIVE COUNT NO; POSITIVE DIFFERENTIAL NO; POSITIVE MORPHOLOGY NO
[2018-08-14 12:34] LABS: Vitamin B12 440 pg/mL (211-911)
[2018-08-14 13:03] LABS: AST(SGOT) 20 U/L (15-37); Alanine Aminotransfer ALT/SGPT 17 U/L (13-56); Albumin, Serum 3.6 g/dL (3.2-5.0); Alkaline Phosphatase 75 U/L (45-117); Anion Gap 4 (5-15); BUN 16 mg/dL (7-18); BUN/Creat Ratio 20.9 RATIO (10-20); Chloride 105 mmol/L (98-107); Creatinine, Serum 0.77 mg/dL (0.55-1.02); EST Glomerular Filtration Rate 80 mL/min (>60); Est Glom Filt Rate - Afr Amer 97 mL/min (>60); Ferritin 42 ng/mL (8-252); Free T3 2.3 pg/mL (2.18-3.98); Globulin 3.7 g/dL (2.2-4.2); Glucose 95 mg/dL (74-106); Iron 109 ug/dL (50-170); Potassium 4.1 mmol/L (3.5-5.1); Protein, Total 7.3 g/dL (6.4-8.2); Sodium Level 140 mmol/L (136-145); T4 Free Direct 1.83 ng/dL (0.76-1.46); Thyroid Stim Hormone (TSH) 0.59 uIU/mL (0.358-3.74)
== END ==
PROVIDERS: Family Provider Family Medicine; PCP Family Medicine; Visit Provider Family Medicine
DX: E03.9 Hypothyroidism, unspecified (principal); D64.9 Anemia, unspecified; E55.9 Vitamin D deficiency, unspecified; E53.8 Deficiency of other specified B group vitamins; E80.6 Other disorders of bilirubin metabolism; R53.83 Other fatigue
CPT/HCPCS: 36415; 80053; 82306; 82607; 82728; 83540; 84439; 84443; 84481; 85025

== ENCOUNTER 2018-11-25 10:30 | Outpatient (RCR) | payer MEDICARE, BC, SELFPAY ==
[2018-07-30 09:29] VITALS: BMI 22.8
--- NOTE | 2018-10-26 08:42 | HP.PTEVAL ---
Patient's Visit Information GREGORY OHARA is a 67 year old F referred to Physical Therapy by Tami Soto DO with a diagnosis of Cervical, thoracic, lumbar spine pain. Date of Evaluation: 10/14/18 Physical Therapist: Royal Ramirez DPT - Visit Plan Frequency: 2x /Week Duration: 4-6 Weeks Plan: Start with endurance activities, core/hip/scapular stability exercises. Progress as tolerated. - Subjective Findings: Pt. is here today for her initial evaluation with diagnosis of Cervical , thoracic and lumbar spine pain. Her symptoms have been gonig on for about 3-4 months now. She was recently diagnosed with meningitis. Which physician attributes her back pain to. Pt. reports having pain that starts at the base of her skull and migrates down her spine to her tail bone. Pt. reports that her symptoms are unchanged. Pt. was previously very active, but has not been able to do much of anything for months. She recently tried to ride a stationary bike for over 10 minutes and was terribly fatigued for 2 days. Pt. is hopeful to reduce symptoms and get back to all recreational activites including working out and crossfit without limitations. - Pain Cervical spine Pain Intensity (Out of 10): 3 Pain Intensity Range: 1, 6 Thoracic spine Pain Intensity (Out of 10): 3 Pain Intensity Range: 1, 5 Lumbar spine Pain Intensity (Out of 10): 2 Pain Intensity Range: 0, 4 - Objective POSTURE: Pt. has slight FH and slight rounded shoulders, but rest of posture is normal. PALPATION: Pt. has increased tenderness througout cervical and thoracic erector spinea. NEURO: normal throughout. ROM: Pt. has normal ROM of lumbar, thoracic and cervical ROM. She does have increased pain with cervical extension and flexion, abd thoracic rotation. MMT: Pt. has 5/5 cervical iso, UEs 4+/5 throughout; BLEs- 4+/5 throughout; except hip abd 4/5, and hip ext 4/5. Core strength- fair-. GAIT: Pt. has normal gait pattern without increase in symptoms. STAIRS: normal without use of HRs. - Special Tests C/S Radiculapathy - Left Upper limb tension test: Negative C/S Radiculapathy - Right Upper limb tension test: Negative C/S Radiculapathy - Left Spurlings: Negative C/S Radiculapathy - Right Spurlings: Negative C/S Radiculapathy - Left Cervical distraction: Negative C/S Radiculapathy - Right Cervical distraction: Negative C/S Radiculapathy - Left Relief test: Negative C/S Radiculapathy - Right Relief test: Negative C/S Radiculapathy - Valsalva: Negative L/S Slump test left side: Negative L/S Slump test right side: Negative L/S Left Straight Leg Raise: Negative L/S Right Straight Leg Raise: Negative L/S Instability PA Test: Negative L/S Prone Instability Test: Positive L/S Degenerative Changes - Quadrant Test: Negative - Goals Goal 1:: Pt. to be I with HEP. Goal Time Frame: 4-6 Weeks Goal 2:: Pt. to have full cervical, thoracic, lumbar ROM without increase in symptoms. Goal Time Frame: 4-6 Weeks Goal 3:: Pt. to have improved postural stability as seen in maintaining proper posture throughout all exercises and gym exercises. Goal Time Frame: 4-6 Weeks Goal 4:: Pt. to have increased core and hip strength increased by 1/2 grade of all effected musculature. Goal Time Frame: 4-6 Weeks Goal 5:: Pt. to ambulate unlimited distances without increase in symptoms. Goal Time Frame: 4-6 Weeks Goal 6:: Pt. to resume all gym related activities without increase in symptoms. Goal Time Frame: 4-6 Weeks - Rehabilitation Potential Physical Therapy Diagnosis: Pt. has signs and symptoms consistent with Cervical, thoracic, lumbar spine pain. Pt. was diagnosed with meningitis and has been having symptoms since. No + signs of neuro issues, no discogenic testing. Pt. did have some + signs of instability. Pt. would benefit from PT to increas core stability and progress back into all recreational activities as tolerated. Rehabilitation Potential: Good - Anticipated Interventions Patient/Client Instruction: Educate patient on: Condition, Plan of Care, Risk Factors, Benefits of Fitness Program For the Purpose of:: To facilitate caregiver knowledge, To improve self management, To prevent re-injury, To improve ability to perform tasks related to life management, To improve tolerance to ADL's Therapeutic Exercise to Include: Strength training, Power training, Endurance training, Balance training, Body mechanics, Postural training, Flexibilty training, Passive ROM, Active ROM, Dynamic Lumbar Stabilization, Ernesto Exercises, Scapular Strength/Stabilization For the Purpose of:: To decrease pain, To decrease swelling/inflammation, To increase ROM, To improve nutrient delivery to tissue, To increase oxygenation perfusion, To improve muscle performance and motor function, To improve health of tissue, To decrease soft tissue restriction, To increase flexibility/ROM, To improve endurance Thank you for the opportunity to evaluate your patient. For Medicare and Medicare HMO plans, please review the plan of care and approve it. It will need to be FAXED BACK to us at [phone] for Medicare purposes. For Medicare only, by signing this I certify the plan of care. Please let me know if there are questions or concerns regarding this plan of care. Physician Signature: Date:
--- NOTE | 2018-11-25 13:05 | HP.PTREVAL ---
Tami Soto DO, It has been my pleasure to treat GREGORY OHARA over the last 9 visits for Cervical, thoracic, lumbar spine pain. Please see the progress note below for an update on the physical therapy plan of care! Subjective: Pt. reports she went to crossfit today without much issues, but is not able to do sit ups. Pt. reports no pain currerntly. Pt. is to make this her last appointment and follow up with PT if needed and resume some crossfit exercises. Objective/Function: ROM: Pt. has 25% limitation of low back motions throughout secondary to mild icnrease in symptoms with ext and flexion. Pt. has good HS length. Pt. has improved core stabiliy, bu is weak poor+. Pt. has good BLE strnegh 4+/5 throughout. Pt. was able to squat with good mechanics, deadlift with good mechanics, wall balls, lunge. Pt. was educated on modified strectching to rduce risk for back pain. Plan Plan: I talked with the patient about resuming crossfit classes as tolerated. I talked to her about looking at how much improved her functional mobility and tolerace to it rather than focusing on her pain. Pt. consents to this. Pt. will resume to cross fit to tolerance and seek PT if neded. If I do not hear from her in the next few weeks I will DC back to physician. Goals Goal 1:: Pt. to be I with HEP. Goal Time Frame: 4-6 Weeks Goal Progress: Goal Met Goal 2:: Pt. to have full cervical, thoracic, lumbar ROM without increase in symptoms. Goal Time Frame: 4-6 Weeks Goal Progress: Progressing Goal 3:: Pt. to have improved postural stability as seen in maintaining proper posture throughout all exercises and gym exercises. Goal Time Frame: 4-6 Weeks Goal Progress: Goal Met Goal 4:: Pt. to have increased core and hip strength increased by 1/2 grade of all effected musculature. Goal Time Frame: 4-6 Weeks Goal Progress: Progressing Goal 5:: Pt. to ambulate unlimited distances without increase in symptoms. Goal Time Frame: 4-6 Weeks Goal Progress: Progressing Goal 6:: Pt. to resume all gym related activities without increase in symptoms. Goal Time Frame: 4-6 Weeks Goal Progress: Progressing Anticipated Interventions Patient/Client Instruction: Educate patient on: Condition, Plan of Care, Risk Factors, Benefits of Fitness Program For the Purpose of:: To facilitate caregiver knowledge, To improve self management, To prevent re-injury, To improve ability to perform tasks related to life management, To improve tolerance to ADL's Therapeutic Exercise to Include: Strength training, Power training, Endurance training, Balance training, Body mechanics, Postural training, Flexibilty training, Passive ROM, Active ROM, Dynamic Lumbar Stabilization, Ernesto Exercises, Scapular Strength/Stabilization For the Purpose of:: To decrease pain, To decrease swelling/inflammation, To increase ROM, To improve nutrient delivery to tissue, To increase oxygenation perfusion, To improve muscle performance and motor function, To improve health of tissue, To decrease soft tissue restriction, To increase flexibility/ROM, To improve endurance Please do not hesitate to contact me at [phone] by phone or if you have questions or concerns regarding this new plan of care! Sincerely, Royal Ramirez DPT
--- NOTE | 2019-04-15 07:53 | HP.PT.NRP ---
HP - Discharge Summary (1) - Patient Information GREGORY OHARA was seen in my office for initial evaluation on 10/14/18. The following Plan of Care was established for this patient: Initial Frequency: 2x /Week Initial Duration: 4-6 Weeks - Anticipated Interventions Patient/Client Instruction: Educate patient on: Condition, Plan of Care, Risk Factors, Benefits of Fitness Program For the Purpose of:: To facilitate caregiver knowledge, To improve self management, To prevent re-injury, To improve ability to perform tasks related to life management, To improve tolerance to ADL's Therapeutic Exercise to Include: Strength training, Power training, Endurance training, Balance training, Body mechanics, Postural training, Flexibilty training, Passive ROM, Active ROM, Dynamic Lumbar Stabilization, Ernesto Exercises, Scapular Strength/Stabilization For the Purpose of:: To decrease pain, To decrease swelling/inflammation, To increase ROM, To improve nutrient delivery to tissue, To increase oxygenation perfusion, To improve muscle performance and motor function, To improve health of tissue, To decrease soft tissue restriction, To increase flexibility/ROM, To improve endurance This patient was last seen in our office 11/25/18. Pertinent comments regarding their Physical therapy will appear below: Pt. was seen for her spinal pain. Pt. was treated with postural education, acitivity modification, and core stability exercuises. Pt. has not been seen in several months and will be DC from PT at this point intime. At this point I will be discontinuing this patient from physical therapy. I would be happy to see this patient again in the future if found appropriate by the physician. Thank you! Royal Ramirez, PATRICK
== END 2018-11-25 19:00 | disposition home or self-care (01) ==
LOC: PT 10:30
PROVIDERS: Family Provider Family Medicine; PCP Family Medicine; Referring Provider Family Medicine; Visit Provider Family Medicine
DX: M54.2 Cervicalgia (principal); M54.6 Pain in thoracic spine; M54.5 Low back pain
CPT/HCPCS: 97035; 97110; 97161; 97530

== ENCOUNTER → 2019-07-28 12:56 | Outpatient (CLI) | payer MEDICARE, BC, SELFPAY ==
[2018-07-30 09:29] VITALS: BMI 22.8
[2019-07-28 13:59] LABS: Absolute Lymphocyte Count 1.84 X10^3/uL (0.83-4.51); Absolute Neutrophil Count 3.2 X10^3/uL (2.0-7.7); Basophil# 0.07 X10^3/uL; Basophil% 1.2 % (0-1); Eosinophil# 0.18 X10^3/uL; Eosinophils% 3.1 % (0-5); Hematocrit 38.2 % (37-47); Hemoglobin 12.1 g/dL (12.0-15.0); Lymphocyte # 1.84 X10^3/ul (4.0); Lymphocyte % 31.6 % (19-41); Mean Corp Hgb Conc 31.7 g/dL (32-36); Mean Corpuscular Hgb 27.9 pg (27.0-32.0); Mean Platelet Vol. 10.5 fl (6.2-12.0); Monocyte% 8.6 % (0-10); NRBC Flagged by Analyzer 0 % (0-5); Neutrophil # 3.21 X10^3/uL (2.7-7.7); Neutrophil % 55.2 % (47-70); Platelet Count 309 K/mm3 (150-450); RBC Distribution Width CV 12.7 % (11.6-14.6); RBC Distribution Width SD 41.3 fl (35.1-43.9); Red Blood Count 4.34 M/mm3 (4.2-5.4); White Blood Count 5.8 K/mm3 (4.4-11.0)
[2019-07-28 15:07] LABS: Vitamin B12 430 pg/mL (211-911); Vitamin D,25 Hydroxy 28.8 ng/mL
[2019-07-28 15:14] LABS: AST(SGOT) 20 U/L (15-37); Alanine Aminotransfer ALT/SGPT 13 U/L (13-56); Albumin, Serum 3.6 g/dL (3.2-5.0); Alkaline Phosphatase 64 U/L (45-117); Anion Gap 3 (5-15); BUN 26 mg/dL (7-18); BUN/Creat Ratio 27.1 RATIO (10-20); Calcium,Total 9.1 mg/dL (8.5-10.1); Chloride 105 mmol/L (98-107); Cholesterol 209 mg/dL (200); Creatinine, Serum 0.96 mg/dL (0.55-1.02); EST Glomerular Filtration Rate 62 mL/min (>60); Est Glom Filt Rate - Afr Amer 75 mL/min (>60); Free T3 1.6 pg/mL (2.18-3.98); Globulin 3.7 g/dL (2.2-4.2); Glucose 93 mg/dL (74-106); High Density Lipoprotein 70 mg/dL; Potassium 3.4 mmol/L (3.5-5.1); Protein, Total 7.3 g/dL (6.4-8.2); Sodium Level 139 mmol/L (136-145); T4 Free Direct 1.45 ng/dL (0.76-1.46); Thyroid Stim Hormone (TSH) 2.14 uIU/mL (0.358-3.74); Triglycerides 61 mg/dL; Very Low Density Lipoprotein 12 mg/dL (5-40)
== END ==
PROVIDERS: PCP Family Medicine; Referring Provider Family Medicine; Visit Provider Family Medicine
DX: E03.9 Hypothyroidism, unspecified (principal); R17 Unspecified jaundice; I10 Essential (primary) hypertension; E55.9 Vitamin D deficiency, unspecified; Z51.81 Encounter for therapeutic drug level monitoring
CPT/HCPCS: 36415; 80053; 80061; 82306; 82607; 84439; 84443; 84481; 85025

== ENCOUNTER → 2020-01-26 11:22 | Outpatient (CLI) | payer MEDICARE, BC, SELFPAY ==
[2018-07-30 09:29] VITALS: BMI 22.8
[2020-01-26 13:02] LABS: Free T3 2.4 pg/mL (2.18-3.98); T4 Free Direct 1.55 ng/dL (0.76-1.46); Thyroid Stim Hormone (TSH) 0.29 uIU/mL (0.358-3.74)
== END ==
PROVIDERS: PCP Family Medicine; Referring Provider Family Medicine; Visit Provider Family Medicine
DX: E03.9 Hypothyroidism, unspecified (principal)
CPT/HCPCS: 36415; 84439; 84443; 84481

== ENCOUNTER → 2020-06-27 13:33 | Outpatient (CLI) | payer MEDICARE, BC, SELFPAY ==
[2018-07-30 09:29] VITALS: BMI 22.8
[2020-06-27 16:39] LABS: Free T3 2.4 pg/mL (2.18-3.98); T4 Free Direct 1.54 ng/dL (0.76-1.46)
== END ==
PROVIDERS: PCP Family Medicine; Referring Provider Family Medicine; Visit Provider Family Medicine
DX: E03.9 Hypothyroidism, unspecified (principal)
CPT/HCPCS: 36415; 84439; 84443; 84481

== ENCOUNTER → 2020-11-21 14:53 | Outpatient (CLI) | payer MEDICARE, BC, SELFPAY ==
[2020-10-30 11:36] VITALS: BMI 22.8
--- NOTE | 2020-11-21 15:00 | BD_ITS ---
STUDY: DUAL ENERGY X-RAY ABSORPTIOMETRY / DXA REASON FOR EXAM: Female, 69 years old. M85.89. The patient is postmenopausal. TECHNIQUE: Bone Mineral Density (BMD) measurements of lumbar spine and bilateral hips were obtained. COMPARISON: None. FINDINGS: Lumbar Spine (L1-L4): g/cm2 (0.777) / T-score (-2.5) / Z-score (-0.5) Findings are suggestive of osteopenia with a high fracture risk. Left Femur Total: g/cm2 (0.772) / T-score (-1.4) / Z-score (0.0) Left Femoral Neck: g/cm2 (0.567) / T-score (-2.5) / Z-score (-0.9) Right Femur Total: g/cm2 (0.760) / T-score (-1.5) / Z-score (-0.1) Right Femoral Neck: g/cm2 (0.578) / T-score (-2.4) / Z-score (-0.8) BD/Dexa Bone Density Study IMPRESSION: The patient is considered osteopenic as outlined below according to World [employer] Organization (WHO) criteria with a high fracture risk. Reference Information: The T-score is the number of standard deviations above or below the standard which is normal for young adults at their peak bone mineral density. The World Health Organization (WHO) interprets the T-scores as follows: Above -1 Normal bone density Between -1 and -2.5 Osteopenia Equal to / or below -2.5 Osteoporosis As a practical clinical guideline, osteopenia may be graded as follows: Mild -1 through -1.5 Moderate -1.6 through -2.0 Severe -2.1 through -2.4 The Z-score is the number of standard deviations above or below age-matched controls. A Z-score of less than -1.5 would be considered abnormal. References: 1. NIH Osteoporosis and Related Bone Diseases www osteo.org 2. International Society for Clinical Densitometry www iscd.org 3. National Osteoporosis Foundation www nof.org Electronically Signed: Melchor Ramey MD at 14:30 EDT , Service support ,
== END ==
PROVIDERS: PCP Family Medicine; Referring Provider Family Medicine; Visit Provider Family Medicine
DX: M85.89 Other specified disorders of bone density and structure, multiple sites (principal)
CPT/HCPCS: 77080

== ENCOUNTER → 2023-02-18 | Outpatient (CLI) | payer MEDICARE, BC, SELFPAY ==
--- NOTE | 2023-02-18 10:33 | RAD_ITS ---
STUDY: X-RAY - RIGHT FOOT CLINICAL: Female, 72 years old. PAIN TECHNIQUE: 3 view(s) of the foot. COMPARISON: None. FINDINGS: Normal talus, calcaneus, and tarsal bones. Small plantar calcaneal enthesophyte. Normal visualized subtalar, talonavicular, calcaneocuboid, tarsal and tarsometatarsal articulations. Normal metatarsi. Normal metatarsophalangeal joint of the great toe. Normal tibial and fibular sesamoid bones. Normal interphalangeal joint of the great toe. Normal phalanges of the great toe. Normal second through fifth metatarsophalangeal joints. Normal interphalangeal joints and phalanges of the lesser toes. The soft tissue structures are unremarkable. RAD/Foot min 3 Views IMPRESSION: Normal x-ray examination of the foot. Electronically Signed: Yakov Raymundo MD at 20:23 EDT ,
== END | disposition home or self-care (01) ==
LOC: MTRAD 10:31
PROVIDERS: PCP Family Medicine; Referring Provider Nurse Practitioner Family; Visit Provider Nurse Practitioner Family
DX: M79.671 Pain in right foot (principal)
CPT/HCPCS: 73630

== ENCOUNTER → 2023-07-08 | Outpatient (CLI) | payer MEDICARE, BC, SELFPAY ==
[2023-07-08 07:17] LABS: Absolute Lymphocyte Count 1.94 X10^3/uL (0.83-4.51); Absolute Neutrophil Count 2.6 X10^3/uL (2.0-7.7); Basophil# 0.06 X10^3/uL; Basophil% 1.1 % (0-1); Eosinophil# 0.27 X10^3/uL; Eosinophils% 5.1 % (0-5); Hematocrit 41.2 % (37-47); Hemoglobin 13.4 g/dL (12.0-15.0); Lymphocyte # 1.94 X10^3/ul (0.83-4.51); Lymphocyte % 36.7 % (19-41); Mean Corp Hgb Conc 32.5 g/dL (32-36); Mean Corpuscular Hgb 29.1 pg (27.0-32.0); Mean Corpuscular Volume 89.6 fL (81-99); Monocyte# 0.46 X10^3/uL; Monocyte% 8.7 % (0-10); NRBC Flagged by Analyzer 0 % (0-5); Neutrophil # 2.55 X10^3/uL (2.7-7.7); Neutrophil % 48.4 % (47-70); Platelet Count 250 K/mm3 (150-450); RBC Distribution Width CV 13.8 % (11.6-14.6); RBC Distribution Width SD 45.1 fl (35.1-43.9); White Blood Count 5.3 K/mm3 (4.4-11.0)
[2023-07-08 07:49] LABS: AST(SGOT) 25 U/L (15-37); Alanine Aminotransfer ALT/SGPT 13 U/L (13-56); Albumin, Serum 3.4 g/dL (3.2-5.0); Alkaline Phosphatase 64 U/L (45-117); Anion Gap 4 (5-15); BUN 18 mg/dL (7-18); BUN/Creat Ratio 21.5 RATIO (10-20); Calcium,Total 8.5 mg/dL (8.5-10.1); Chloride 108 mmol/L (98-107); Cholesterol 213 mg/dL (200); Creatinine, Serum 0.84 mg/dL (0.55-1.02); EST Glomerular Filtration Rate 71 mL/min (>60); Est Glom Filt Rate - Afr Amer 86 mL/min (>60); Free T3 1.6 pg/mL (2.18-3.98); Globulin 3.4 g/dL (2.2-4.2); Glucose 89 mg/dL (74-106); High Density Lipoprotein 71 mg/dL; Protein, Total 6.8 g/dL (6.4-8.2); Sodium Level 140 mmol/L (136-145); T4 Free Direct 1.05 ng/dL (0.76-1.46); Triglycerides 61 mg/dL; Very Low Density Lipoprotein 12 mg/dL (5-40)
[2023-07-08 08:31] LABS: Vitamin B12 440 pg/mL (211-911); Vitamin D,25 Hydroxy 35.2 ng/mL
== END | disposition home or self-care (01) ==
LOC: LAB 06:14
PROVIDERS: PCP Family Medicine; Referring Provider Family Medicine; Visit Provider Family Medicine
DX: E03.9 Hypothyroidism, unspecified (principal); E53.8 Deficiency of other specified B group vitamins; E55.9 Vitamin D deficiency, unspecified; E78.5 Hyperlipidemia, unspecified; Z51.81 Encounter for therapeutic drug level monitoring
CPT/HCPCS: 36415; 80053; 80061; 82306; 82607; 84439; 84443; 84481; 85025

== ENCOUNTER → 2023-08-08 | Outpatient (CLI) | payer MEDICARE, BC, SELFPAY ==
--- NOTE | 2023-08-08 10:53 | BD_ITS ---
STUDY: DUAL ENERGY X-RAY ABSORPTIOMETRY / DXA REASON FOR EXAM: Female, 72 years old. 733.00OsteoporosisBONE DENSITY REASON FOR EXAM TECHNIQUE: Bone Mineral Density (BMD) measurements of lumbar spine and bilateral hips were obtained. COMPARISON: Comparison is made with prior study November 21, 2020. FINDINGS: Lumbar Spine (L1-L4): g/cm2 (0.766) / T-score (-2.6) / Z-score (-0.4) Findings are suggestive of osteoporosis with a high fracture risk. Left Femur Total: g/cm2 (0.780) / T-score (-1.3) / Z-score (0.2) Left Femoral Neck: g/cm2 (0.561) / T-score (-2.6) / Z-score (-0.8) Right Femur Total: g/cm2 (0.753) / T-score (-1.5) / Z-score (0.0) Right Femoral Neck: g/cm2 (0.579) / T-score (-2.4) / Z-score (-0.6) The T-Scores on the most recent prior examination were: Lumbar Spine (L1-L4): There has been worsening of bone density since the previous examination. Left Femur Total: which represents an improvement of 1%. Right Femur Total: which represents a worsening of 1%. BD/Dexa Bone Density Study IMPRESSION: The patient is considered osteoporotic as outlined below according to World [employer] Organization (WHO) criteria with a high fracture risk. There has been worsening of bone density since the previous examination. Reference Information: The T-score is the number of standard deviations above or below the standard which is normal for young adults at their peak bone mineral density. The World Health Organization (WHO) interprets the T-scores as follows: Above -1 Normal bone density Between -1 and -2.5 Osteopenia Equal to / or below -2.5 Osteoporosis As a practical clinical guideline, osteopenia may be graded as follows: Mild -1 through -1.5 Moderate -1.6 through -2.0 Severe -2.1 through -2.4 The Z-score is the number of standard deviations above or below age-matched controls. A Z-score of less than -1.5 would be considered abnormal. References: 1. NIH Osteoporosis and Related Bone Diseases www osteo.org 2. International Society for Clinical Densitometry www iscd.org 3. National Osteoporosis Foundation www nof.org Electronically Signed: Melchor Ramey MD at 10:38 EDT ,
== END | disposition home or self-care (01) ==
LOC: OPBD 10:51
PROVIDERS: PCP Family Medicine; Referring Provider Family Medicine; Visit Provider Family Medicine
DX: M81.0 Age-related osteoporosis without current pathological fracture (principal)
CPT/HCPCS: 77080

== ENCOUNTER 2023-10-10 02:56 | Emergency (ER) | payer MEDICARE, BC, SELFPAY ==
[2023-10-10 02:58] VITALS: BP 153/79; PULSE 74; RESP 16; TEMP 36.4; O2SAT 97; BMI 10.8
[2023-10-10 03:54] LABS: Absolute Lymphocyte Count 1.03 X10^3/uL (0.83-4.51); Absolute Neutrophil Count 4.5 X10^3/uL (2.0-7.7); Basophil# 0.03 X10^3/uL; Basophil% 0.5 % (0-1); Eosinophil# 0.01 X10^3/uL; Eosinophils% 0.2 % (0-5); Hematocrit 42.5 % (37-47); Hemoglobin 13.5 g/dL (12.0-15.0); Lymphocyte # 1.03 X10^3/ul (0.83-4.51); Lymphocyte % 16.3 % (19-41); Mean Corp Hgb Conc 31.8 g/dL (32-36); Mean Platelet Vol. 11.5 fl (6.2-12.0); Monocyte# 0.68 X10^3/uL; Monocyte% 10.8 % (0-10); NRBC Flagged by Analyzer 0 % (0-5); Neutrophil # 4.54 X10^3/uL (2.7-7.7); Neutrophil % 71.7 % (47-70); Platelet Count 197 K/mm3 (150-450); RBC Distribution Width CV 13.1 % (11.6-14.6); RBC Distribution Width SD 42.1 fl (35.1-43.9); Red Blood Count 4.83 M/mm3 (4.2-5.4); White Blood Count 6.3 K/mm3 (4.4-11.0)
[2023-10-10 04:19] LABS: Anion Gap 10 (5-15); BUN 16 mg/dL (7-18); BUN/Creat Ratio 19.4 RATIO (10-20); Calcium,Total 8.5 mg/dL (8.5-10.1); Chloride 104 mmol/L (98-107); Creatinine, Serum 0.82 mg/dL (0.55-1.02); EST Glomerular Filtration Rate 73 mL/min (>60); Est Glom Filt Rate - Afr Amer 88 mL/min (>60); Estimated Creatinine Clearance 27.06 ml/min; Glucose 132 mg/dL (74-106); Potassium 3.1 mmol/L (3.5-5.1); Sodium Level 139 mmol/L (136-145)
--- NOTE | 2023-10-10 04:23 | CT_ITS ---
INDICATION: GI bleed RECTAL BLEEDING,NAUSEA HX:HTN EXAMINATION: CTA abdomen and pelvis TECHNIQUE: Routine CT angiogram protocol was performed with IV contrast. MIP images provided. The protocol utilizes one or more of the following dose reduction techniques: automated exposure control, adjustment of mA and/or kV according to patient size,and/or use of iterative reconstruction technique. IV Contrast: IV 75mL [id number]-370 RADIATION DOSAGE (If Supplied By Facility): CTDIvol = ( 8.08 ) mGy, DLP = ( 629.92 ) mGycm COMPARISON: None. FINDINGS: AORTA: Normal caliber. No dissection. CELIAC ARTERY: Unremarkable. SMA: Unremarkable. RENAL ARTERIES: Unremarkable. SASHA: Unremarkable. ILIAC ARTERIES: Unremarkable. RETROPERITONEUM: Unremarkable. Other vascular: No definite contrast blush or extravasation identified to suggest a site of active GI bleeding. LOWER CHEST: Dependent atelectasis in the lung bases. LIVER: Small cyst in the liver. GALLBLADDER/BILE DUCTS: Unremarkable. PANCREAS: Unremarkable. SPLEEN: Unremarkable. ADRENAL GLANDS: Unremarkable. KIDNEYS/URETERS: Unremarkable. BOWEL/MESENTERY: Wall thickening of the sigmoid colon with mild adjacent stranding. Relatively prominent mucosal enhancement in this region but no definite site of active GI bleeding identified. No delayed series. No bowel obstruction. APPENDIX: Identified and normal. PERITONEUM: No free air. Small amount of free fluid in the pelvis. REPRODUCTIVE ORGANS: Unremarkable. BLADDER: Unremarkable. BONES/SOFT TISSUES: No acute abnormality. OTHER: None. CT/CTA Abd/Pelvis W/WO Contrast IMPRESSION: Wall thickening of the sigmoid colon consistent with acute colitis. Relatively prominent mucosal enhancement in this region but no definite site of active GI bleeding. Electronically Signed: Filomena Ji MD at 6:20 EDT ,
[2023-10-10 04:52] LABS: AST(SGOT) 18 U/L (15-37); Alanine Aminotransfer ALT/SGPT 11 U/L (13-56); Albumin, Serum 3.2 g/dL (3.2-5.0); Alkaline Phosphatase 68 U/L (45-117); Bilirubin, Direct 0.15 mg/dL (0.00-0.30); Globulin 3.3 g/dL (2.2-4.2); Lipase 25 U/L (13-75); Protein, Total 6.5 g/dL (6.4-8.2)
[2023-10-10 04:53] LABS: International Normalized Ratio 1.1; Prothrombin Time (Protime)PT. 14.6 SECONDS (11.7-14.9)
[2023-10-10 04:54] LABS: Partial Thromboplast Time 33.2 Seconds (24.1-36.2)
[2023-10-10 05:00] VITALS: BP 143/81; PULSE 68; RESP 16; O2SAT 99
--- NOTE | 2023-10-10 06:42 | EDS_ITS ---
HPI History of Present Illness Chief Complaint: GI Bleed Informant: patient and spouse/S.O. Narrative Narrative: Patient is a 72-year-old female with past medical history of hypertension and hypothyroidism. She states roughly 2 to 3 days ago she had subjective fevers and chills and generalized abdominal discomfort. She states that the subjective fevers and chills resolved but the abdominal discomfort has persisted and today led to bouts of diarrhea that began to turn bloody. She states that she does not have a history of bleeding disorder nor is she on a blood thinner. She denies any known sick contacts any recent travel outside the country or antibi otic use livestock exposure camping activities. However with the symptoms persisting and now progressing to blood in the stool she was concerned and comes in for evaluation [facility] Medical History (Updated 10/10/23 @ 22:[address] Oskar Cavanaugh, DO) Former smoker HTN (hypertension) Hypertensive emergency without congestive heart failure Subarachnoid hemorrhage Home Medications ?Medication ?Instructions ?Recorded ?Last Taken ?Type levothyroxine 137 mcg tablet 137 mcg PO DAILY 07/19/18 07/19/18 History (Synthroid) prednisone 20 mg tablet 20 mg PO DAILY 5 days #5 tabs 10/10/23 Unknown Rx sulfamethoxazole 800 1 tab PO BID 7 days #14 tabs 10/10/23 Unknown Rx mg-trimethoprim 160 mg tablet (Bactrim DS) Allergy/AdvReac Type Severity Reaction Status Date / Time No Known Allergies Allergy Verified 07/14/23 11:07 Family History (Updated 07/14/23 @ 11:07 by Yomaira Whittington) Sister Lung cancer Ovarian cancer Surgical History (Updated 10/10/23 @ 03:06 by Pratibha Pacheco) Hx of tonsillectomy History of excision of pilonidal cyst History of foot surgery History of mandibular surgery Hx of colonoscopy Social History (Updated 07/14/23 @ 11:07 by Yomaira Whittington) household members: spouse current occupational status: retired Smoking Status: Former smoker alcohol intake: never substance use type: does not use ROS ROS ED Constitutional Constitutional ED: Reports chills, fever(s) and subjective Eyes Eyes: Denies change in vision ENT ENT ED: Denies sore throat Cardiovascular Cardiovascular: Denies chest pain, palpitations or racing heartbeat Respiratory/Chest Respiratory/Chest: Denies cough or dyspnea Gastrointestinal Gastrointestinal: Reports abdominal pain and diarrhea; Denies nausea or vomiting Genitourinary Genitourinary ED: Denies dysuria or hematuria Musculoskeletal Musculoskeletal: Denies myalgias Integumentary Denies rash Neurologic Neurologic: Denies headache(s) Hematologic/Lymphatic Hematologic/Lymphatic: Denies easy bleeding or easy bruising EXAM Physical Exam Const Vital Signs: 10/10/23 02:58 10/10/23 05:00 10/10/23 06:53 Temperature 97.6 F L 98.1 F Temperature Source Oral Pulse Rate 74 68 82 Respiratory Rate 16 16 15 Blood Pressure 153/79 H 143/81 H 137/66 H Blood Pressure Mean 103 101 89 Pulse Ox 97 99 99 Oxygen Delivery Method Room Air Room Air Positive well nourished and well developed General Appearance ED: well developed; Negative for pallor HEENT Reports moist mucous membranes HEENT Narrative: No tongue or lip swelling no oral lesions no airway edema or compromise No signs of infection noted in the posterior pharynx Eyes PERRL and EOMs intact bilaterally General Eye ED: Negative for pale conjunctiva or scleral icterus Neck supple Resp normal respiratory effort and clear to auscultation bilaterally Cardio regular rate and regular rhythm Rate: other Other Details: Heart is regular rate and rhythm without murmurs rubs or gallops Radial and carotid pulses are equal and symmetric GI non-distended and no masses GI Narrative: Abdomen is soft and nondistended with hyperactive bowel sounds. There is genera lized lower abdominal pain with palpation but greatest in the left lower quadrant however no voluntary guarding or rigidity or pulsatile mass Auscultation: hyperactive bowel sounds Palpation: soft Back/Spine no CVA tenderness Extremity normal to inspection Neuro oriented x3, CN's II-XII intact bilaterally and no sensory deficits noted Sensorium / Orientation: alert Motor Exam: strength 5/5 throughout Psych mental status grossly normal Skin no rashes or lesions noted and no wounds Skin Narrative: Capillary refills less than 3 seconds General Skin Exam: Negative for jaundice or pallor MDM MDM MDM Narrative Medical decision making narrative: Patient arrived to the ER with stable vitals and a soft nonsurgical abdomen. Differential diagnosis is for viral stomach infection secondary to [place] virus or rotavirus. There is concern for diverticulitis versus diverticular bleeding and/or colitis. Secondary to this basic blood work and a CTA of the abdomen and pelvis were obtained. Labs showed no leukocytosis or left shift. There is no signs of acute blood loss anemia and her BUN is not elevated going against an upper GI bleed. CTA revealed inflammation of the sigmoid colon consistent with sigmoid colitis. This is most likely inflammatory in nature as she does not have a fever or white count. Also she reported subjective fevers and chills initially prior to symptoms beginning this is most likely viral in nature. She has no risk factors for infectious colitis such as recent antibiotic use or travel outside the country and the symptoms only and present for 1 to 2 days I do not feel there is need for stool culture at this time. However in order to ensure that patient is not an atypical bacterial infection he will be covered with Bactrim and to reduce inflammation should be placed on prednisone. However with no need for blood transfusion no signs of perforation or obstruction there is no need for admission and she can be discharged home and follow-up on an outpatient basis History & Record Review Discussion w/independent historian: Patient and Significant other Lab Data Attestation: I reviewed the patient's lab results. Labs: Laboratory Results - last 24 hr 10/10/23 10/10/23 03:20 04:00 WBC 6.3 RBC 4.83 Hgb 13.5 Hct 42.5 MCV 88.0 MCH 28.0 MCHC 31.8 L RDW Std Deviation 42.1 RDW Coeff of Jo 13.1 Plt Count 197 MPV 11.5 Immature Gran % (Auto) 0.500 Neut % (Auto) 71.7 H Lymph % (Auto) 16.3 L [place] % (Auto) 10.8 H Eos % (Auto) 0.2 Baso % (Auto) 0.5 Absolute Neuts (auto) 4.5 Absolute Lymphs (auto) 1.03 Nucleated RBC % 0 PT 14.6 INR 1.1 APTT 33.2 Sodium 139 Potassium 3.1 L Chloride 104 Carbon Dioxide 25.0 Anion Gap 10 BUN 16 Creatinine 0.82 Estim Creat Clear Calc 27.06 Est GFR (MDRD) Af Amer 88 Est GFR (MDRD) Non-Af 73 BUN/Creatinine Ratio 19.4 Glucose 132 H Calcium 8.5 Total Bilirubin 0.50 Direct Bilirubin 0.15 AST 18 ALT 11 L Alkaline Phosphatase 68 Total Protein 6.5 Albumin 3.2 Globulin 3.3 Lipase 25 Radiography Diagnostic Testing: Clinical Impression(s) from Imaging Studies Abdomen/Pelvis CTA 10/10/23 04:23 IMPRESSION: Wall thickening of the sigmoid colon consistent with acute colitis. Relatively prominent mucosal enhancement in this region but no definite site of active GI bleeding. Electronically Signed: Filomena Ji MD at 6:20 EDT , Discharge Plan Triage Chief Complaint: GI Bleed ED Provider: Oskar Cavanaugh Dx/Rx/DC Orders Clinical Impression: Colitis, Hypothyroidism, Hypertension Instructions: ED Understanding Colitis Prescriptions: New prednisone 20 mg tablet 20 mg PO DAILY 5 Days Qty: 5 0RF sulfamethoxazole-trimethoprim [Bactrim DS] 800-160 mg tablet 1 tab PO BID 7 Days Qty: 14 0RF No Action levothyroxine [Synthroid] 137 MCG tablet 137 mcg PO DAILY Patient Comments: take 1 tablet by mouth every morning ON AN EMPTY STOMACH Primary Care Provider: Tami Soto Referrals: Tami Soto DO [Primary Care Provider] - Activity Restrictions/Additional Instructions: Your workup showed sigmoid colitis as a cause of your symptoms. This is most likely inflammatory in nature but as there is possibility could be infectious please take the prescribed Bactrim/antibiotic as directed. Use the steroid/prednisone to reduce inflammation. Contact your doctor to discuss if this diagnosis will alter your scheduled colonoscopy for next week. If you develop worsening of symptoms such as increased bleeding pain fever or lightheadedness/passing out or have any further concerns please return for repeat evaluation Print Language: Guatemalan Disposition Disposition: Home, Self Care Discharge Date/Time: 10/10/23 06:54
[2023-10-10 06:53] VITALS: BP 137/66; PULSE 82; RESP 15; TEMP 36.7; O2SAT 99
== END 2023-10-10 06:54 | disposition home or self-care (01) ==
PROVIDERS: Emergency Provider Emergency Medicine; PCP Family Medicine; Visit Provider Emergency Medicine
DX: K52.9 Noninfective gastroenteritis and colitis, unspecified (principal); I10 Essential (primary) hypertension; E03.9 Hypothyroidism, unspecified; Z79.890 Hormone replacement therapy; Z87.891 Personal history of nicotine dependence
CPT/HCPCS: 74174; 80048; 80076; 83690; 85025; 85610; 85730; 99283; Q9967; A4216

== ENCOUNTER → 2023-10-10 | Outpatient (CLI) | payer MEDICARE, BC, SELFPAY ==
[2023-10-10 13:30] LABS: Free T3 1.2 pg/mL (2.18-3.98); T4 Free Direct 1.29 ng/dL (0.76-1.46); Thyroid Stim Hormone (TSH) 2.37 uIU/mL (0.358-3.74)
== END | disposition home or self-care (01) ==
LOC: LAB.FUTURE 11:25 → LAB 11:26
PROVIDERS: PCP Family Medicine; Referring Provider Family Medicine; Visit Provider Family Medicine
DX: E03.9 Hypothyroidism, unspecified (principal)
CPT/HCPCS: 36415; 84439; 84443; 84481

== ENCOUNTER → 2023-11-13 | Outpatient (CLI) | payer MEDICARE, BC, SELFPAY ==
[2023-11-13 09:12] LABS: Free T3 1.9 pg/mL (2.18-3.98); Thyroid Stim Hormone (TSH) 0.53 uIU/mL (0.358-3.74)
== END | disposition home or self-care (01) ==
PROVIDERS: PCP Family Medicine; Referring Provider Family Medicine; Visit Provider Family Medicine
DX: E03.9 Hypothyroidism, unspecified (principal)
CPT/HCPCS: 36415; 84443; 84481

== ENCOUNTER 2023-12-17 07:48 | Day surgery (SDC) | payer MEDICARE, BC, SELFPAY ==
[2023-12-17] VITALS (7 sets, daily range): BP systolic 121–166; BP diastolic 69–86; PULSE 56–80; RESP 16–18; TEMP 36.3–36.7; O2SAT 99–100; BMI 22.6
--- NOTE | 2023-12-17 08:30 | PRE.ANES_ITS ---
ASA Classification* ASA Classification ASA Classification: 2 Assessment & Plan Anesthesia* Anesthesia Assessment Anesthesia Assessment: Discussed sedation and/or anesthesia options, risks, benefits, and alternatives with patient/parents/legal guardian/POA. Questions invited. The patient/parents/legal guardian/POA seems to understand and agrees to proceed with anesthesia plan. Reviewed the physical assessment, medical history, allergy history and patient home medications list prior to surgery/procedure/anesthetic and documented any changes. Performed airway and anesthesia risk assessments. Anesthesia Type Anesthesia Type: MAC Anesthesia Focused Assessment* Airway Assessment Mouth opens: >3 cm Mallampati Score: II Focused Labs Anesthesia Preop lab: CBC WBC 6.3 K/mm3 (4.4-11.0) 10/10/23 03:20 RBC 4.83 M/mm3 (4.2-5.4) 10/10/23 03:20 Hgb 13.5 g/dL (12.0-15.0) 10/10/23 03:20 Hct 42.5 % (37-47) 10/10/23 03:20 Plt Count 197 K/mm3 (150-450) 10/10/23 03:20 CHEMISTRY Potassium 3.1 mmol/L (3.5-5.1) L 10/10/23 03:20 Sodium 139 mmol/L (136-145) 10/10/23 03:20 Magnesium 1.8 mg/dL (1.6-2.6) 07/24/18 05:10 BUN 16 mg/dL (7-18) 10/10/23 03:20 Creatinine 0.82 mg/dL (0.55-1.02) 10/10/23 03:20 Glucose 132 mg/dL (74-106) H 10/10/23 03:20 TSH 0.53 uIU/mL (0.358-3.74) 11/13/23 08:09 COAG PT 14.6 SECONDS (11.7-14.9) 10/10/23 04:00 Pre-Assessment Diagnosis/Proposed Procedure Planned Operative Procedure(s): Colonoscopy Anesthesia History Anesthesia History - senior functional analyst: Anesthesia History - senior functional analyst Hx Hospitalization No 12/12/23 12:10 Any Problems With Anesthesia No 12/12/23 12:10 Cholinesterase deficiency No 12/12/23 12:10 You/Your Family Experience No 12/12/23 12:10 fever (hyperthermia) with Relationship Recent Exposure to Contagious Disease Does patient have nerve No 12/12/23 12:10 stimulator Patient instructed to have device shut off --Does patient have Pacemaker or ICD? When Was Last Pacemaker Check QUESTION #4 FULL TEXT: You/Your Family Experience fever (hyperthermia) with Anesthesia Last Oral Intake Last Oral intake: Last Oral Intake NPO since Meds taken in AM with sips of water? Meds patient instructed to take am of surgery PONV PONV - senior functional analyst: PONV - senior functional analyst Female Yes 12/12/23 12:10 HX of Motion Sickness No 12/12/23 12:10 HX of N/V After Surgery No 12/12/23 12:10 Non-Smoker Yes 12/12/23 12:10 Duration of Surgery greater No 12/12/23 12:10 than 60 minutes Number of Risk Factors 2 12/12/23 12:10 PONV Score Moderate Risk 12/12/23 12:10 Height & Weight Height & Weight: Anesthesia: Height & Weight Height 5 ft 2 in 10/27/23 09:20 Respiratory Assessment Respiratory Assessment - senior functional analyst: Respiratory Tract Infection Hx - senior functional analyst Hx Respiratory Tract Infection No 12/12/23 12:10 STOP Sleep Apnea STOP Sleep Apnea - senior functional analyst: STOP Sleep Apnea - senior functional analyst Hx Hypertension No 12/12/23 12:10 Hx Sleep Apnea No 12/12/23 12:10 CPAP BIPAP Do you snore loudly (louder No 12/12/23 12:10 than talking or can be heard Do you often feel tired/ No 12/12/23 12:10 fatigued/ sleepy during daytime? Has anyone observed you stop No 12/12/23 12:10 breathing during sleep? STOP Results Negative 12/12/23 12:10 QUESTION #5 FULL TEXT : Do you snore loudly (louder than talking or can be heard through closed doors)? Tobacco Use History Tobacco Use History - senior functional analyst: Tobacco Use History - senior functional analyst Tobacco Use Smoking Status Former smoker 12/12/23 12:10 Hx Tobacco Use No 12/12/23 12:10 Years Smoking Packs Smoked per Day Smoking Cessation Date was No - quit smoking greater 12/12/23 12:10 within the last 15 years than 15 years ago Hx Smoking Cessation Date Hx Smoking Cessation Counseling Hematologic Medial History Hematologic Hx - senior functional analyst: Hematologic Medical Hx - coronary clinical specialist Hx of Blood Transfusion No 12/12/23 12:10 Hx of Transfusion in last 3 No 12/12/23 12:10 Months Date of Last Transfusion (if within last 3 months) Ever experience any problems No 12/12/23 12:10 with transfusion(s)? Specify any problems Hx of Preganancy in last 3 No 12/12/23 12:10 Months Nurse Filling Out Transfusion VCHRISTIN 12/12/23 12:10 & Questions: Date: 12/12/23 12/12/23 12:10 Time: 12:11 12/12/23 12:10 Patient unable to answer at this time (ie. confused, unrespo /Reproduction History /Reproductive History - senior functional analyst: /Reproductive Hx- senior functional analyst Hx Now Gestational Age (in weeks): EDC: Hx Hx Para Hx Section SAB Active Medications Active Medications: Current Medications Generic Name Dose Route Start Last Admin Trade Name Freq PRN Reason Stop Dose Admin Lactated Ringer's 1,000 mls @ 15 mls/hr 12/17/23 08:15 IV .Q48H LILIAN PFSH Medical History Wears glasses Post-menopausal History of steroid therapy Thyroid disease Anemia History of colitis Chronic cough Former smoker HTN (hypertension) Hypertensive emergency without congestive heart failure Subarachnoid hemorrhage Home Medications ?Medication ?Instructions ?Recorded ?Last Taken ?Type levothyroxine 137 mcg tablet 137 mcg PO DAILY 07/19/18 07/19/18 History (Synthroid) calcium carbonate 600 mg-vitamin 1 tab PO DAILY 10/27/23 Unknown History D3 10 mcg (400 unit) tablet (Calcium 600 + D(3)) magnesium 250 mg tablet 250 mg PO DAILY 12/12/23 Unknown History Allergy/AdvReac Type Severity Reaction Status Date / Time No Known Allergies Allergy Verified 12/17/23 08:27 Family History Sister Lung cancer Ovarian cancer Surgical History History of 2 sections Hx of tonsillectomy History of excision of pilonidal cyst History of foot surgery History of mandibular surgery Hx of colonoscopy Social History household members: spouse current occupational status: retired Smoking Status: Former smoker alcohol intake: never substance use type: does not use Review of Systems (Anesthesia) ROS Narrative System reviewed and no additional complaints, except as documented.
[2023-12-17] MEDS: Lactated Ringers 1,000 ML 15 ML IV (08:34)
--- NOTE | 2023-12-17 09:00 | H&P.OPEN ---
HPI - General General Date of Service: 12/17/23 HPI Narrative GREGORY OHARA, is a 72 F who presents for colonoscopy due to previous bright red blood. Patient denies any further bright red blood per rectum. Patient denies any other changes since office visit offie visit 10/27/23 HPI HPI: 72-year-old female presents for colonoscopy due to bright red blood per rectum/ER visit on 10/09. Patient states she had 1 additional episode after her ER visit. Otherwise she states she has been having bowel movements about every other day denies any blood. Patient denies any family history. Patient denies any current abdominal pain. Patient's last colonoscopy was in 2011 negative per patient. 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 Patient did have a CT abdomen pelvis which showed some questionable thickening of the sigmoid colon. Patient was given prednisone as well as Bactrim in the ER for possible infectious colitis. [facility] Medical History Wears glasses Post-menopausal History of steroid therapy Thyroid disease Anemia History of colitis Chronic cough Former smoker HTN (hypertension) Hypertensive emergency without congestive heart failure Subarachnoid hemorrhage Home Medications ?Medication ?Instructions ?Recorded ?Last Taken ?Type levothyroxine 137 mcg tablet 137 mcg PO DAILY 07/19/18 07/19/18 History (Synthroid) calcium carbonate 600 mg-vitamin 1 tab PO DAILY 10/27/23 Unknown History D3 10 mcg (400 unit) tablet (Calcium 600 + D(3)) magnesium 250 mg tablet 250 mg PO DAILY 12/12/23 Unknown History Allergy/AdvReac Type Severity Reaction Status Date / Time No Known Allergies Allergy Verified 12/17/23 08:27 Family History Sister Lung cancer Ovarian cancer Surgical History History of 2 sections Hx of tonsillectomy History of excision of pilonidal cyst History of foot surgery History of mandibular surgery Hx of colonoscopy Social History household members: spouse current occupational status: retired Smoking Status: Former smoker alcohol intake: never substance use type: does not use Past Medical/Surgical History Planned Operation Planned Operative Procedure(s): Colonoscopy Previous Hospitalizations/Surgeries HX Hospitalizations: No Any Problems With Anesthesia: No You/Your Family Experience Fever (Hyperthermia) With Anes: No Cholinesterase deficiency: No Cardiovascular Hx Chest Pain within Last 2 months: No Hx of Irregular Heartbeat and/or Afib: No Hx Heart Attack: No Hx Congestive Heart Failure: No Hx Hypertension: No Hx Pacemaker: No Hx Cardiac Surgery/Stents/Etc.: No Hx Pain in Legs when Walking/Leg Cramps: No Respiratory Hx Chronic Obstructive Pulmonary Disease (COPD): No Hx Asthma: No Hx Emphysema: No Hx Sleep Apnea: No Hx Respiratory Tract Infection/Cold (presently): No Do You Snore Loudly (louder than talking or can be heard): No Do You Often Feel Tired/ Fatigued/ Sleepy Dring Daytime?: No Has Anyone Observed You Stop Breathing During Sleep?: No Result (for STOP score): Negative Hx Smoking: Yes Smoking Status: Former smoker Gastrointestinal Hx Gastrointestinal Bleed: No Hx Ulcer: No Difficulty Chewing/Swallowing: No Hx Unplanned Weight Loss of 20#: No Neurological Hx Seizures: No Hx Multiple Sclerosis: No Hx Parkinson's Disease: No Hx Head/Neck Injury: No Hx Headaches: No Hx Back Injury/Pain: Yes Does patient have nerve stimulator: No Blood Disorder Hx Hepatitis: No Hx Cirrhosis: No Hx Anemia: Yes Hx Blood Disorders: No Genitourinary Hx Renal Disease: No Hx Dialysis: No Musculoskeletal Hx Arthritis: Yes Hx Rheumatoid Arthritis: No Endocrine Hx Diabetes: No Thyroid Disease: Yes Psycho/Social Hx Substance Use: No Hx Alcohol Use: No Hx Anxiety: No Hx Depression: No Hx Dementia: No Miscellaneous Hx Cancer: No Recent Exposure to Contagious Disease: No Allergies No Known Allergies Allergy (Verified 12/17/23 08:27) Maternal: Family History Sister Lung cancer Ovarian cancer Heart Disease Paternal: Family History Sister Lung cancer Ovarian cancer No pertinent history Discharge Is Pt Admitted From a Group Home, or a Prison: No After D/C, Where Do you Plan to Go: Return Home From the PAT History Number of Risk Factors: 3 Vital Signs Vital Signs Vital Signs: 12/17/23 08:28 12/17/23 08:28 Temperature 98.0 F Temperature Source Temporal Pulse Rate 60 Respiratory Rate 16 Respiratory Pattern Normal Blood Pressure 166/86 H Blood Pressure Mean 112 Blood Pressure Source Monitor Blood Pressure Position Sitting Blood Pressure Location Left Arm Pulse Ox 99 Oxygen Delivery Method Room Air Weight Weight: 123 lb 7.342 oz Body Mass Index (BMI) 22.6 Physical Exam Const alert, oriented x3 and no apparent distress HEENT normocephalic and head/scalp atraumatic Resp normal respiratory effort Cardio regular rate GI soft to palpation and non-tender; Negative for non-distended Palpation: Negative for guarding Extremity no clubbing, cyanosis or edema Skin no rashes or lesions noted Neuro CN's II-XII intact bilaterally Psych mental status grossly normal Assessment & Plan Assessment/Plan (1) BRBPR (bright red blood per rectum): Surgery Risks - Colonoscopy I discussed with the patient the risks of the procedure: Yes Risks Include but are not Limited To: Risks include but are not limited to: Bleeding, perforation requiring further surgery, inability to complete colonoscopy requiring barium enema.
--- NOTE | 2023-12-17 09:15 | COLBX_PTH ---
PATIENT: GREGORY OHARA LOC: EN U#:[id number] AGE/SX: 72/F ROOM: RE12/17/[address]: Dr. Kandi Oreilly MD : 1950 BED: DIS: 12/17/2023 SPEC #: [id number] RECD: 12/17/23 10:21 STATUS: KEELEY RECurt #: [id number] MIGUEL: 12/17/23 09:[address]: Kandi Oreilly DEPT: SURGICAL PATHOLOGY RECD BY: Maria Ines Yañez ENTERED: 12/17/23 12:08 SP TYPE: COLON BX OTHR DR: Dr. Tami Soto, DO Tissues: Ascending colon Procedures: Surgery Specimen Level IV HEADER OPERATION: Colonoscopy, biopsy PRE-OP DIAGNOSIS: Bright red blood per rectum TISSUE SUBMITTED: Ascending polyp biopsy MICROSCOPIC DIAGNOSIS Ascending polyp, biopsy: Fragments of colonic mucosa, no pathologic diagnosis. SJ/mr 12/18/2023 MICROSCOPIC DESCRIPTION Slides are reviewed. GROSS DESCRIPTION Received in fixative is one container labeled with the patient's name and designated Ascending colon polyp biopsy. The specimen consists of two irregular fragments of light gutierrez soft tissue that in aggregate measure 0.6 x 0.1 x 0.1 cm. The specimen is totally submitted in one cassette. 12/17/2023 TC:4 CPT:60705
--- NOTE | 2023-12-17 10:15 | PCM.POST.ANE ---
Anesthesia: Postop Eval I Current Vital Signs Temperature: 97.4 F Pulse Rate: 80 Blood Pressure: 124/69 Respiratory Rate: 18 Pulse Ox: 100 Assessment Airway patent: Yes Spontaneous unlabored respirations: Yes nausea: No Vomiting: No Anesthesia Complication: No Fluid Hydration Crystalloid volume administer (ml): 500 Total IV fluid infused: 500 Progress Note Anesthesia document: Postop Eval 1 completed: Yes
--- NOTE | 2023-12-17 10:16 | OP.COLON_ITS ---
Patient Name: Alanis Lopez Procedure Date: 12/17/2023 9:43 AM Date of : 1950 Age: 72 Procedure: Colonoscopy Indications: Rectal bleeding Providers: Kandi Oreilly MD Referring MD: Kandi Oreilly MD Medicines: Monitored Anesthesia Care Patient Profile: This is a 72 year old female. Last Colonoscopy: 2011. Complications: No immediate complications. Procedure: Pre-Anesthesia Assessment: - Prior to the procedure, a History and Physical was performed, and patient medications and allergies were reviewed. The patient's tolerance of previous anesthesia was also reviewed. The risks and benefits of the procedure and the sedation options and risks were discussed with the patient. All questions were answered, and informed consent was obtained. Prior Anticoagulants: The patient has taken no anticoagulant or antiplatelet agents. ASA Grade Assessment: Per anesthesia. After reviewing the risks and benefits, the patient was deemed in satisfactory condition to undergo the procedure. After I obtained informed consent, the scope was passed under direct vision. Throughout the procedure, the patient's blood pressure, pulse, and oxygen saturations were monitored continuously. The Colonoscope was introduced through the anus and advanced to the cecum, identified by appendiceal orifice and ileocecal valve. The colonoscopy was performed without difficulty. The patient tolerated the procedure well. The quality of the bowel preparation was good. Scope In: 9:49:58 AM Scope Withdrawal Time 0 hours 13 minutes 34 seconds Scope Out: 10:09:39 AM Total Procedure Duration Time 0 hours 19 minutes 41 seconds Findings: Hemorrhoids were found on perianal exam. Non-bleeding internal hemorrhoids were found. The hemorrhoids were Grade I (internal hemorrhoids that do not prolapse). A less than 5 mm polyp was found in the ascending colon. The polyp was sessile. The polyp was removed with a cold biopsy forceps. Resection and retrieval were complete. The exam was otherwise without abnormality. Impression: - Hemorrhoids found on perianal exam. - Non-bleeding internal hemorrhoids. - One less than 5 mm polyp in the ascending colon, removed with a cold biopsy forceps. Resected and retrieved. - The examination was otherwise normal. Recommendation: - Discharge patient to home. - Resume previous diet. - Continue present medications. - Await pathology results. - Repeat colonoscopy in 5 years for surveillance based on pathology results. Procedure Code(s): --- Professional --- 92291, Colonoscopy, flexible; with biopsy, single or multiple Diagnosis Code(s): --- Professional --- K64.0, First degree hemorrhoids D12.2, Benign neoplasm of ascending colon K62.5, Hemorrhage of anus and rectum CPT copyright 2021 [employer]. All rights reserved. The codes documented in this report are preliminary and upon inpatient coder review may be revised to meet current compliance requirements. MD Kandi Jones MD 12/17/2023 10:16:04 AM This report has been signed electronically. Number of Addenda: 0 Note Initiated On: 12/17/2023 9:43 AM
--- NOTE | 2023-12-17 10:16 | OP.CCLET_ITS ---
12/17/2023 Tami Soto [address] [place] [address] Re : Colonoscopy procedure for Alanis Lopez Dear Dr. Soto This procedure was performed on Sunday, December 17, 2023. My impressions and recommendations are as follows: Impressions : - Hemorrhoids found on perianal exam. - Non-bleeding internal hemorrhoids. - One less than 5 mm polyp in the ascending colon, removed with a cold biopsy forceps. Resected and retrieved. - The examination was otherwise normal. Recommendations : - Discharge patient to home. - Resume previous diet. - Continue present medications. - Await pathology results. - Repeat colonoscopy in 5 years for surveillance based on pathology results. My findings are described in the full procedure note, which is enclosed. If I can be of further assistance, please feel free to contact me at Doctor phone number(s): , Work: . Sincerely, MD Kandi Jones MD 12/17/2023 10:16:04 AM This report has been signed electronically.
--- NOTE | 2023-12-17 10:56 | POSTOPAN2_ITS ---
Anesthesia Postop Eval I Sum Postop Eval Completion status Anesthesia document: Postop Eval 1 completed: Yes Anesthesia Postop Eval I Summary Anesthesia Postop Eval I Summary: Anesthesia Postop Eval I: Assessment Summary Airway patent Yes 12/17/23 10:15 [email or web address] Spontaneous unlabored Yes 12/17/23 10:15 [email or web address] respirations Mental status nausea No 12/17/23 10:15 [email or web address] Vomiting No 12/17/23 10:15 [email or web address] Anesthesia Postop Eval I: Fluid Summary Crystalloid volume administer 500 12/17/23 10:15 [email or web address] (ml) Colloids volume administered ( ml) Blood Product volume administered (ml) Total IV fluid infused 500 12/17/23 10:15 [email or web address] Anesthesia Postop Eval I: Summary Notes Anesthesia Complication No 12/17/23 10:15 [email or web address] Anesthesia Complication Comment: Post-operative progress note Anesthesia: Postop Eval II Evaluation Mental status: Awake and Calm Pain Level: 0 nausea: No Vomiting: No Complications Anesthesia Complication: No
--- NOTE | 2023-12-17 10:56 | PCM.POSTANE2 ---
Anesthesia Postop Eval I Sum Postop Eval Completion status Anesthesia document: Postop Eval 1 completed: Yes Anesthesia Postop Eval I Summary Anesthesia Postop Eval I Summary: Anesthesia Postop Eval I: Assessment Summary Airway patent Yes 12/17/23 10:15 [email or web address] Spontaneous unlabored Yes 12/17/23 10:15 ASSISTANT [email or web address] respirations Mental status nausea No 12/17/23 10:15 ASSISTANT [email or web address] Vomiting No 12/17/23 10:15 [email or web address] Anesthesia Postop Eval I: Fluid Summary Crystalloid volume administer 500 12/17/23 10:15 [email or web address] (ml) Colloids volume administered ( ml) Blood Product volume administered (ml) Total IV fluid infused 500 12/17/23 10:15 ASSISTANT [email or web address] Anesthesia Postop Eval I: Summary Notes Anesthesia Complication No 12/17/23 10:15 [email or web address] Anesthesia Complication Comment: Post-operative progress note Anesthesia: Postop Eval II Evaluation Mental status: Awake and Calm Pain Level: 0 nausea: No Vomiting: No Complications Anesthesia Complication: No
== END 2023-12-17 10:55 | disposition home or self-care (01) ==
LOC: EN 07:50 → AC 07:51
PROVIDERS: PCP Family Medicine; Referring Provider Family Medicine; Visit Provider Surgery
PROC: 0DJD8ZZ Inspection of Lower Intestinal Tract, Via Natural or Artificial Opening Endoscopic (ICD-10-PCS; CPT 45378; principal; 2023-12-17 09:10)
DX: K63.5 Polyp of colon (principal); K62.5 Hemorrhage of anus and rectum; E07.9 Disorder of thyroid, unspecified; K64.0 First degree hemorrhoids; Z87.891 Personal history of nicotine dependence; I10 Essential (primary) hypertension; K64.4 Residual hemorrhoidal skin tags; Z87.19 Personal history of other diseases of the digestive system
CPT/HCPCS: 45380; 88305; J7120; J2405

== ENCOUNTER → 2024-07-21 | Outpatient (CLI) | payer MEDICARE, BC, SELFPAY ==
--- NOTE | 2024-07-21 09:46 | RAD_ITS ---
EXAM: XR Right Knee Complete, 4 or More Views CLINICAL INDICATION: PAIN IN KNEES/ ARTHRITIS TECHNIQUE: Four or more views of the right knee. COMPARISON: No relevant prior studies available. 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 No acute fracture. No dislocation. SOFT TISSUES: Mild soft tissue swelling. RAD/Knee 4 or More Views IMPRESSION: Degenerative changes as above. Reading Location: [facility]
--- NOTE | 2024-07-21 09:46 | RAD_ITS ---
EXAM: XR Right Knee Complete, 4 or More Views CLINICAL INDICATION: PAIN IN KNEES/ ARTHRITIS TECHNIQUE: Four or more views of the right knee. COMPARISON: No relevant prior studies available. FINDINGS: BONES/JOINTS: Mild degenerative change of the medial compartment of the knee joint. No acute fracture. No dislocation. SOFT TISSUES: Unremarkable. RAD/Knee 4 or More Views IMPRESSION: Degenerative changes as above. Reading Location: [facility]
== END | disposition home or self-care (01) ==
LOC: MTRAD 09:44
PROVIDERS: PCP Family Medicine; Referring Provider Nurse Practitioner Family; Visit Provider Nurse Practitioner Family
DX: M25.561 Pain in right knee (principal); M25.562 Pain in left knee
CPT/HCPCS: 73564

== ENCOUNTER → 2024-08-23 | Outpatient (CLI) | payer MEDICARE, BC, SELFPAY ==
[2024-08-23 10:17] LABS: Absolute Lymphocyte Count 1.91 X10^3/uL (0.83-4.51); Absolute Neutrophil Count 2.8 X10^3/uL (2.0-7.7); Basophil# 0.05 X10^3/uL; Basophil% 0.9 % (0-1); Eosinophil# 0.16 X10^3/uL; Eosinophils% 2.9 % (0-5); Hematocrit 40.9 % (37-47); Hemoglobin 13.4 g/dL (12.0-15.0); Lymphocyte # 1.91 X10^3/ul (0.83-4.51); Mean Corp Hgb Conc 32.8 g/dL (32-36); Mean Corpuscular Hgb 28.3 pg (27.0-32.0); Mean Corpuscular Volume 86.5 fL (81-99); Mean Platelet Vol. 10.6 fl (6.2-12.0); Monocyte# 0.55 X10^3/uL; Monocyte% 10.1 % (0-10); NRBC Flagged by Analyzer 0 % (0-5); Neutrophil # 2.76 X10^3/uL (2.7-7.7); Neutrophil % 50.7 % (47-70); Platelet Count 258 K/mm3 (150-450); RBC Distribution Width CV 13.5 % (11.6-14.6); RBC Distribution Width SD 42.4 fl (35.1-43.9); Red Blood Count 4.73 M/mm3 (4.2-5.4); White Blood Count 5.5 K/mm3 (4.4-11.0)
[2024-08-23 10:59] LABS: ALB/GLOB Ratio 1.5 RATIO (0.9-2.4); AST(SGOT) 22 U/L (<=31); Alanine Aminotransfer ALT/SGPT 9 U/L (<=34); Alkaline Phosphatase 66 U/L (35-104); Anion Gap 8 (5-15); BUN 14 mg/dL (4-19); BUN/Creat Ratio 17.7 RATIO (10-20); Calcium,Total 8.9 mg/dL (7.6-11.0); Carbon Dioxide 25.7 mmol/L (21.0-32.0); Chloride 106 mmol/L (98-108); Cholesterol 194 mg/dL (<=200); Creatinine, Serum 0.81 mg/dL (0.70-1.20); EST Glomerular Filtration Rate 77 (>60); Free T3 2.4 pg/mL (2.18-3.98); Globulin 2.6 g/dL (2.2-4.2); Glucose 94 mg/dL (70-99); High Density Lipoprotein 54 mg/dL; Low Density Lipoprotein Calc. 129 mg/dL; Potassium 4.1 mmol/L (3.3-5.1); Protein, Total 6.6 g/dL (5.9-8.4); Sodium Level 140 mmol/L (133-145); Thyroid Stim Hormone (TSH) 0.259 uIU/mL (0.300-4.200); Total Bilirubin 0.81 mg/dL (0.00-1.30); Triglycerides 54 mg/dL; Very Low Density Lipoprotein 11 mg/dL (5-40); cholesterol:hdl ratio screen 3.57
== END | disposition home or self-care (01) ==
LOC: LAB 09:47
PROVIDERS: PCP Family Medicine; Referring Provider Family Medicine; Visit Provider Family Medicine
DX: R17 Unspecified jaundice (principal); E03.9 Hypothyroidism, unspecified; Z51.81 Encounter for therapeutic drug level monitoring
CPT/HCPCS: 36415; 80053; 80061; 84439; 84443; 84481; 85025

== ENCOUNTER → 2024-09-08 | Outpatient (CLI) | payer MEDICARE, BC, SELFPAY ==
--- NOTE | 2024-09-08 07:27 | BI_ITS ---
EXAM: SCRN MAMM (CAD)W/STEVENSON BILAT 09/08/2024 CLINICAL HISTORY: F, Age 73 y/o , SCREENING TECHNIQUE: Bilateral screening digital breast tomosynthesis with 2D and 3D images. Computer aided detection. COMPARISON: Prior exam(s) dated 04/18/2015, 03/29/2014. FINDINGS: TISSUE DENSITY: The breast tissue is composed of scattered area of fibroglandular density. Bilateral Breast Mammographic Findings: No significant masses, calcifications or other abnormalities are identified. BI/SCRN MAMM (CAD)W/STEVENSON BILAT IMPRESSION: Right Breast: BIRADS 1 NEGATIVE. Left Breast: BIRADS 1 NEGATIVE. OVERALL FINAL ASSESSMENT: BIRADS 1 NEGATIVE. RECOMMENDATION: Routine annual follow-up in 1 Year A letter with findings and recommendations will be mailed to the patient. Reading Location: [id number]
== END | disposition home or self-care (01) ==
LOC: OPBI 07:26
PROVIDERS: PCP Family Medicine; Referring Provider Family Medicine; Visit Provider Family Medicine
DX: Z12.31 Encounter for screening mammogram for malignant neoplasm of breast (principal)
CPT/HCPCS: 77063; 77067

== ENCOUNTER → 2024-09-22 | Outpatient (CLI) | payer MEDICARE, BC, SELFPAY ==
--- NOTE | 2024-09-22 08:43 | CDU_ITS ---
Reason For Study Rt. Velocities/BP Lt. Velocities/BP Prox CCA 75.1/14.6 cm/sec. Prox CCA 80.2/20.0 cm/sec. Mid CCA 57.5/15.7 cm/sec. Mid CCA 58.1/18.8 cm/sec. Dist CCA 50.9/15.7 cm/sec. Dist CCA 54.4/18.8 cm/sec. Prox ICA 43.9/13.3 cm/sec. Prox ICA 48.5/16.3 cm/sec. Mid ICA 46.5/16.8 cm/sec. Mid ICA 54.2/20.1 cm/sec. Dist ICA 85.2/26.2 cm/sec. Dist ICA 67.1/23.7 cm/sec. Rt. ICA/CCA = 1.5. Lt. ICA/CCA = 1.2. Prox ECA 81.7/6.9 cm/sec. Prox ECA 71.6./11.4 cm/sec. Rt. Vert. 59.7/10.2 cm/sec. Lt. Vert. 23.0/5.9 cm/sec. Right Extracranial There is intimal thickening but no significant atherosclerotic plaque noted in the right common carotid artery. There is heterogeneous, irregular atherosclerotic plaque noted in the right internal carotid artery. There is intimal thickening but no significant atherosclerotic plaque noted in the right external carotid artery. Antegrade flow is noted in the right vertebral artery. Left Extracranial There is intimal thickening but no significant atherosclerotic plaque noted in the left common carotid artery. There is intimal thickening but no significant atherosclerotic plaque noted in the left internal carotid artery. There is intimal thickening but no significant atherosclerotic plaque noted in the left external carotid artery. Antegrade flow is noted in the left vertebral artery. Procedure Carotid Duplex 25735. This is a Carotid Duplex examination using B-mode, color flow and specral Doppler. Exam performed in department. VL/Carotid Duplex Ultrasound Interpretation Summary Mild (<50%) stenosis right extracranial internal carotid. No significant athero sclerotic plaque or stenosis noted in the left internal carotid artery. Flow within the vertebral arteries is antegrade b ilaterally. Ordering Physician: Abiel Okeefe Referring Physician: Tami Soto Performed By: Iman Osborn RVT
== END | disposition home or self-care (01) ==
LOC: CVS 08:39
PROVIDERS: PCP Family Medicine; Referring Provider Ophthalmology; Visit Provider Ophthalmology
DX: H35.82 Retinal ischemia (principal)
CPT/HCPCS: 93880